=== PATIENT | female | born 1960 | race Caucasian/White ===

== ENCOUNTER 2023-05-20 12:51 | Outpatient (REF) | payer MEDICARE, MEDICAID, SELFPAY ==
[2023-05-20 13:57] LABS: Bilirubin Urine NEGATIVE (NEGATIVE); Blood Urine SMALL (NEGATIVE); Clarity Urine CLOUDY (CLEAR); Color Urine YELLOW (YELLOW); Glucose Urine UA NEGATIVE (NEGATIVE); Ketones Urine NEGATIVE (NEGATIVE); Leukocyte Esterase Urine SMALL (NEGATIVE); Nitrite Urine NEGATIVE (NEGATIVE); Protein Urine >=300 mg/dL (NEG/TRACE); Specific Gravity Urine 1.025 (1.005-1.025); pH Urine 7.5 (5.0-9.0)
[2023-05-20 13:58] LABS: Urine Microscopic Indicated YES
[2023-05-20 14:18] LABS: Amorphous Sediment Urine MODERATE; Bacteria Urine MODERATE #/HPF (NONE SEEN); Cast Seen? NONE SEEN #/LPF (NONE SEEN); Crystals Seen? Seen #/HPF (None Seen); Mucus Urine NONE SEEN (NONE SEEN); Squamous Epithelial Cell Urine RARE #/LPF (NONE/RARE); WBC Urine 20-50 #/HPF (NONE SEEN)
== END 2023-05-20 12:52 | disposition home or self-care (01) ==
LOC: LAB 12:51
PROVIDERS: PCP Family Medicine; Visit Provider Family Medicine
DX: N39.0 Urinary tract infection, site not specified (principal)
CPT/HCPCS: 81001

== ENCOUNTER 2023-06-03 04:41 | Emergency (ER) | payer MEDICARE, MEDICAID, SELFPAY ==
[2023-06-03 04:42] VITALS: BP 139/111; PULSE 114; RESP 20; TEMP 37.2; O2SAT 95; BMI 51.5
--- NOTE | 2023-06-03 05:12 | PC.NURSE ---
patient has had no urine output in her wilson for 12 hours. small amount of urine that was in wilson was dark frieda with a creamy white mucus. wilson was removed and a new wilson placed per dr. phan. UA was obtained from wilson insertion. yellow, cloudy.
--- NOTE | 2023-06-03 05:29 | ED_ITS ---
HPI - Female Genitourinary General Chief complaint: Urogenital-Female Stated complaint: CATH PAIN Time Seen by Provider: 06/03/23 04:42 Source: patient Mode of arrival: ambulance History of Present Illness HPI Narrative: patient has indwelling wilson catheter that has not been removed for a long time. She stopped having urine output around 4pm yesterday. Then she developed bladder pain so she called 911 to bring her to the ED for evaluation and treatment. Related Data Previous Rx's Medication Instructions Recorded cephalexin 500 mg capsule 500 mg PO BID 7 days #14 caps 06/03/23 Allergies Allergy/AdvReac Type Severity Reaction Status Date / Time No Known Drug Allergies Allergy Verified 06/03/23 04:41 PFSH PFSH Social History Smoking status: Never smoker Exam Narrative Exam Narrative: Nurses notes and vital signs reviewed and patient is not hypoxic. afebrile General: Well-appearing and in no apparent distress. Skin: Warm, dry, no pallor noted. No rash. Head: Normocephalic, atraumatic. Eye: Pupils are equal, round and EOMI. No scleral icterus. Cardiovascular: Regular Rate and Rhythm without murmur, gallop or rub. Respiratory: No accessory muscle use or respiratory distress. Lungs are clear to auscultation, no wheezing, rales or rhonchi Back: No CVA tenderness GI: Abdomen is soft, non-distended. Normal bowel sounds. Suprapubic tenderness to palpation. No rebound, guarding, or rigidity noted. Neurological: A&O x4. No cranial nerve dysfunction observed. No truncal ataxia. Moves all extremities. Sensation intact. Psychiatric: Cooperative and interactive. Normal mood and affect. Constitutional Vital Signs, click to edit/add: Last Vital Signs Temp 98.9 F 06/03/23 04:42 Pulse 114 H 06/03/23 04:42 Resp 20 06/03/23 04:42 BP 139/111 H 06/03/23 04:42 Pulse Ox 95 06/03/23 04:42 O2 Del Method Room Air 06/03/23 04:42 Course Vital Signs Vital signs: Vital Signs Temperature 98.9 F 06/03/23 04:42 Pulse Rate 114 H 06/03/23 04:42 Respiratory Rate 20 06/03/23 04:42 Blood Pressure 139/111 H 06/03/23 04:42 Pulse Oximetry 95 06/03/23 04:42 Oxygen Delivery Method Room Air 06/03/23 04:42 Temperature 98.9 F 06/03/23 04:42 Pulse Rate 114 H 06/03/23 04:42 Respiratory Rate 20 06/03/23 04:42 Blood Pressure 139/111 H 06/03/23 04:42 Pulse Oximetry 95 06/03/23 04:42 Oxygen Delivery Method Room Air 06/03/23 04:42 MDM - Female Genitourinary MDM Narrative Medical decision making narrative: Bladder scanner revealed more than 450mL retained urine in the bladder. ED nurse replaced the patient's wilson catheter. The patient felt much better and asked to be discharged home. Urine obtained from the new bag and sent for testing. Patient prescribed keflex for her UTI. Urine culture pending Lab Data Attestation: I reviewed the patient's lab results. Labs: Lab Results 06/03/23 Range/Units 04:58 Urine Color Lt. yellow (YELLOW) Urine Clarity Clear (CLEAR) Urine pH 6.0 (5.0-9.0) Ur Specific [place] 1.020 (1.005-1.025) Urine Protein Negative (NEG/TRACE) mg/dL Urine Glucose (UA) Negative (NEGATIVE) mg/dL Urine Ketones Negative (NEGATIVE) mg/dL Urine Occult Blood Trace-i (NEGATIVE) Urine Nitrite Negative (NEGATIVE) Urine Bilirubin Negative (NEGATIVE) Urine Urobilinogen 0.2 (0.2-1.0) EU/dL Ur Leukocyte Esterase Large A (NEGATIVE) Urine RBC 0-2 (0-2) #/HPF Urine WBC 20-50 A (NONE SEEN) #/HPF Ur Squamous Epith Cells Rare (NONE/RARE) #/LPF Urine Crystals None seen (None Seen) #/HPF Urine Bacteria Large A (NONE SEEN) #/HPF Urine Casts Seen A (NONE SEEN) #/LPF Hyaline Casts Few Urine Mucus None seen (NONE SEEN) Ur Culture Indicated? Yes Discharge Plan Discharge Chief Complaint: Urogenital-Female Clinical Impression: Acute urinary retention, Cystitis, Urinary tract infection Patient Disposition: Home, Self-Care Time of Disposition Decision: 05:34 Prescriptions / Home Meds: New cephalexin 500 mg capsule 500 mg PO BID 7 Days Qty: 14 0RF Instructions: Acute Urinary Retention in Women (ED), Urinary Tract Infection in Older Adults (ED) Stand Alone Forms: Portal Instructions Referrals: Raghav Thorne MD [Primary Care Provider] - 1 week Discharge Date/Time: 06/03/23 05:43
[2023-06-03 06:35] LABS: Bilirubin Urine NEGATIVE (NEGATIVE); Blood Urine TRACE-I (NEGATIVE); Clarity Urine CLEAR (CLEAR); Color Urine LT. YELLOW (YELLOW); Glucose Urine UA NEGATIVE (NEGATIVE); Ketones Urine NEGATIVE (NEGATIVE); Leukocyte Esterase Urine LARGE (NEGATIVE); Nitrite Urine NEGATIVE (NEGATIVE); Protein Urine NEGATIVE (NEG/TRACE); Urine Microscopic Indicated YES; Urobilinogen Urine 0.2 EU/dL (0.2-1.0)
[2023-06-03 06:44] LABS: Bacteria Urine LARGE #/HPF (NONE SEEN); Cast Seen? SEEN #/LPF (NONE SEEN); Crystals Seen? None Seen #/HPF (None Seen); Hyaline Casts Urine FEW; Mucus Urine NONE SEEN (NONE SEEN); RBC Urine 0-2 #/HPF (0-2); Squamous Epithelial Cell Urine RARE #/LPF (NONE/RARE); WBC Urine 20-50 #/HPF (NONE SEEN)
[2023-06-03 06:45] LABS: Urine Culture Indicated YES
== END 2023-06-03 05:43 | disposition home or self-care (01) ==
PROVIDERS: Emergency Provider Emergency Medicine; PCP Family Medicine
DX: N30.90 Cystitis, unspecified without hematuria (principal); R33.9 Retention of urine, unspecified; Z96.0 Presence of urogenital implants
CPT/HCPCS: 51798; 81001; 87086; 87150; 87186; 99283

== ENCOUNTER 2023-06-10 09:30 | Inpatient (IN) | payer MEDICARE, MEDICAID, SELFPAY ==
[2023-06-10] VITALS (30 sets, daily range): BP systolic 130–151; BP diastolic 68–96; PULSE 83–120; RESP 14–41; TEMP 36.8–37.3; O2SAT 88–96; BMI 56.6; BMI 63.6
--- NOTE | 2023-06-10 09:48 | XR_ITS ---
The [address] [address] Patient Name: BRODERICK SIEGEL MRN: [id number] date: 1960 Sex: F Assigned Patient Location: ER Current Patient Location: ER Accession/Order Number: [id number] Exam Date: 06/10/2023 10:05 Report Date: 06/10/2023 10:53 At the request of: IVANA ESPANA Procedure: XR chest 1V EXAMINATION: XR chest 1V HISTORY: cp COMPARISON: No relevant comparison available. FINDINGS: LUNGS: No significant pulmonary parenchymal abnormalities. VASCULATURE: No increased pulmonary vasculature. PLEURA: No pneumothorax, effusion, or pleural thickening. CARDIAC: No cardiomegaly or cardiac silhouette abnormality. MEDIASTINUM: No visible mass or adenopathy. BONES: No fracture or visible bone lesion. OTHER: Negative. XR/XR chest 1V IMPRESSION: 1. No acute cardiopulmonary process. Electronically authenticated by: BRET GONZALEZ Date: 06/10/2023 10:53
--- NOTE | 2023-06-10 09:48 | ECG_ITS ---
The [facility] Test Date: 2023-06-10 Pat Name: BRODERICK SIEGEL Department: Room: - Gender: Female Hide Curer: : 1960 Requested By: CELESTINE JEFFRIES Order Number: [id number] Reading MD: ZAIRE GOSS Measurements Intervals [place] Rate: 113 P: 44 ID: [id number] QRS: 0 QRSD: 90 T: 44 QT: 298 QTc: 365 Interpretive Statements 1120 Sinus tachycardia 3113 Cannot rule out anterior myocardial infarction, probably old 9150 abnormal ECG No previous ECG available for comparison Electronically Signed On 06-11-2023 7:07:51 EDT by ZAIRE GOSS
--- NOTE | 2023-06-10 09:50 | ED_ITS ---
HPI - General Adult General Chief complaint: Chest Pain Stated complaint: CHEST PAIN Time Seen by Provider: 06/10/23 09:48 Source: patient and other Source information: EMS Mode of arrival: ambulance Limitations: physical limitation History of Present Illness HPI narrative: Patient is a 63-year-old female who is presenting with chest pain for the last 24 hours. Patient stated she was having sharp stabbing left-sided chest pain yesterday with no significant radiation. Patient is a mild shortness of breath. Patient has limited use of left arm and leg secondary to previous traumatic e vent/surgery. 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 Patient also has a chronic swelling for a catheter. She has no abdominal pain, nausea or vomiting today. Patient uses a wheelchair at home. Patient to be placed in a long term in the next month. Patient has no falls. No recent traveling. Patient does move around quite a bit at home with her wheelchair. No other acute complaints at this time. Patient is morbidly obese. Patient arrived by EMS. Patient was given 4 baby aspirin, nitroglycerin prior to arrival, nitro did drop minimally blood pressures. . All systems are negative except as noted/marked. All systems reviewed and otherwise negative. . Nurses note and vital signs reviewed and patient is not hypoxic. General: The patient appears well and in no apparent distress. Patient is resting comfortably on cart. Patient is not toxic, lethargic, or listless. morbidly Obese. Skin: Warm, dry, no pallor noted. There is no rash noted. No petechiae, purpura. Head: Normocephalic, atraumatic Eye: Normal conjunctiva, no drainage, EOMI. PERRL Ears, Nose, Mouth, and Throat: oral mucosa is moist. Nares patent. Mouth without vesicles. Cardiovascular: Regular Rate and Rhythm, no murmur, gallop, rub; Patient has no reproducible tenderness to palpation to the anterior, lateral, posterior chest wall bilateral. Respiratory: Patient is in no distress, no accessory muscle use, lungs are clear to auscultation, no wheezing, rales or rhonchi Back: non-tender, no CVA tenderness bilaterally to percussion. No CT LS midline pain GI: soft, morbidly obese, no tenderness to palpation, no masses appreciated. No rebound, guarding, or rigidity noted. No flank pain bilateral, No distention. Patient has indwelling Harmon catheter. Musculoskeletal: Patient has full range of motion of all of the extremities That is normal for patient. Patient has chronic loss of function to left arm left leg, no acute changes on today's motor sensory function that is not her normal baseline., no motor, sensory, or focal neurological deficits Neurological: A&O x3, normal speech Psychiatric: Cooperative Related Data Home Medications Medication Instructions Recorded Confirmed acetaminophen 325 mg tablet (Aphen) 1,000 mg PO TID 06/10/23 06/10/23 alendronate 70 mg tablet 70 mg PO .Tuesday06/10/23 06/10/23 allopurinol 300 mg tablet 300 mg PO DAILY 06/10/23 06/10/23 amlodipine 5 mg tablet 5 mg PO DAILY 06/10/23 06/10/23 atorvastatin 40 mg tablet 40 mg PO DAILY 06/10/23 06/10/23 bupropion HCl 300 mg 24 hr tablet, 300 mg PO DAILY 06/10/23 06/10/23 extended release cholecalciferol (vitamin D3) 50 2,000 unit PO DAILY 06/10/23 06/10/23 mcg (2,000 unit) capsule citalopram 20 mg tablet 20 mg PO DAILY 06/10/23 06/10/23 docusate sodium 100 mg capsule 100 mg PO TID 06/10/23 06/10/23 (Colace) furosemide 40 mg tablet 40 mg PO DAILY 06/10/23 06/10/23 gabapentin 400 mg capsule 800 mg PO TID 06/10/23 06/10/23 hydrocodone 10 mg-acetaminophen 1 tab PO BEDTIME 06/10/23 06/10/23 325 mg tablet hyoscyamine sulfate 0.125 mg 0.125 mg PO Q8H 06/10/23 06/10/23 disintegrating tablet insulin glargine 100 unit/mL 19 unit subcut DAILY 06/10/23 06/10/23 subcutaneous solution (Lantus U-100 Insulin) insulin lispro 100 unit/mL 1 sliding scale dose subcut ACHS 06/10/23 06/10/23 subcutaneous pen letrozole 2.5 mg tablet 2.5 mg PO Q24H 06/10/23 06/10/23 levofloxacin 750 mg tablet 750 mg PO Q24H 06/10/23 06/10/23 levothyroxine 200 mcg tablet 200 mcg PO DAILY 06/10/23 06/10/23 liothyronine 5 mcg tablet 5 mcg PO DAILY 06/10/23 06/10/23 meclizine 25 mg tablet 25 mg PO BID 06/10/23 06/10/23 nitrofurantoin 100 mg PO Q12H 06/10/23 06/10/23 monohydrate/macrocrystals 100 mg capsule pantoprazole 40 mg tablet,delayed 40 mg PO DAILY 06/10/23 06/10/23 release pioglitazone 30 mg tablet 30 mg PO DAILY 06/10/23 06/10/23 potassium chloride 20 mEq 20 meq PO DAILY 06/10/23 06/10/23 tablet,extended release primidone 50 mg tablet 50 mg PO Q8H 06/10/23 06/10/23 semaglutide 1 mg/dose (2 mg/1.5 0.5 mg subcut QWEEK 06/10/23 06/10/23 mL) subcutaneous pen injector (FanKave) senna 187 mg tablet 50 mg PO DAILY 06/10/23 06/10/23 tizanidine 4 mg tablet 2 mg PO Q8H 06/10/23 06/10/23 trazodone 150 mg tablet 100 mg PO BEDTIME 06/10/23 06/10/23 Allergies Allergy/AdvReac Type Severity Reaction Status Date / Time No Known Drug Allergies Allergy Verified 06/10/23 09:33 PFSH PFSH Social History Smoking status: Never smoker Exam Constitutional Vital Signs, click to edit/add: Last Vital Signs Temp 98.4 F 06/10/23 14:39 Pulse 84 06/10/23 15:45 Resp 16 06/10/23 14:39 BP 151/96 H 06/10/23 14:39 Pulse Ox 92 L 06/10/23 14:39 O2 Del Method Nasal Cannula 06/10/23 14:39 O2 Flow Rate 3 06/10/23 14:39 Course Vital Signs Vital signs: Vital Signs Temperature 99.2 F 06/10/23 09:33 Pulse Rate 120 H 06/10/23 09:33 Respiratory Rate 18 06/10/23 09:33 Blood Pressure 146/68 H 06/10/23 09:33 Pulse Oximetry 88 L 06/10/23 09:33 Oxygen Delivery Method Room Air 06/10/23 09:33 Temperature 98.4 F 06/10/23 14:39 Pulse Rate 84 06/10/23 15:45 Respiratory Rate 16 06/10/23 14:39 Blood Pressure 151/96 H 06/10/23 14:39 Pulse Oximetry 92 L 06/10/23 14:39 Oxygen Delivery Method Nasal Cannula 06/10/23 14:39 Oxygen Delivery Flow Rate 3 06/10/23 14:39 Medical Decision Making MDM Narrative Medical decision making narrative: Patient had 2 cardiac enzymes are negative. EKG showed no acute findings. Chest x-ray shows no acute changes. EXAMINATION: XR chest 1V HISTORY: cp COMPARISON: No relevant comparison available. FINDINGS: LUNGS: No significant pulmonary parenchymal abnormalities. VASCULATURE: No increased pulmonary vasculature. PLEURA: No pneumothorax, effusion, or pleural thickening. CARDIAC: No cardiomegaly or cardiac silhouette abnormality. MEDIASTINUM: No visible mass or adenopathy. BONES: No fracture or visible bone lesion. OTHER: Negative. IMPRESSION: 1. No acute cardiopulmonary process. Electronically authenticated by: BERT GONZALEZ Date: 06/10/2023 10:53 Patient currently has not had any chest pain and last hour. Patient was a home. Patient will be placed in a long term. Patient was given aspirin and nitroglycerin by EMS, please see the report. Patient's disease intervention specialist is Dr. Yeung, she has not seen him in several years. Patient has no cardiac history, no stents. Patient does not recall the last time she had a stress test or echocardiogram. Patient's PCP is Dr. Thorne. Patient be admitted to rule out acute cardiac syndrome. Lab Data Lab results reviewed: Yes I reviewed the patient's lab results Labs: Lab Results 06/10/23 06/10/23 Range/Units 10:45 11:34 WBC 7.6 (4.0-11.0) 10^3/uL RBC 5.13 (4.20-5.40) 10^6/uL Hgb 12.5 (12.0-16.0) g/dL Hct 39.5 (36.0-48.0) % MCV 77.0 L (81.0-99.0) fL MCH 24.4 L (26.7-34.0) pg MCHC 31.6 (29.9-35.2) g/dL RDW 16.6 H (11.0-15.0) % Plt Count 205 (150-450) 10^3/uL MPV 10.3 (9.5-13.5) fL Neut % (Auto) 75.8 H (43.0-75.0) % Lymph % (Auto) 7.3 L (20.5-60.0) % [place] % (Auto) 10.2 (1.7-12.0) % Eos % (Auto) 5.8 (0.9-7.0) % Baso % (Auto) 0.4 (0.2-2.0) % Neut # (Auto) 5.8 (1.4-6.5) 10^3/uL Lymph # (Auto) 0.6 L (1.2-3.8) 10^3/uL [place] # (Auto) 0.8 (0.3-0.8) 10^3/uL Eos # (Auto) 0.4 (0.0-0.7) 10^3/uL Baso # (Auto) 0.0 (0.0-0.1) 10^3/uL Abs Immat Gran (auto) 0.04 H (0.00-0.03) 10^3/uL Imm/Tot Granulo (auto) 0.5 (0.0-0.5) % Sodium 131 L (136-145) mmol/L Potassium 4.1 (3.5-5.1) mmol/L Chloride 97 L (98-107) mmol/L Carbon Dioxide 26.4 (21.0-32.0) mmol/L Anion Gap 11.7 BUN 21.0 H (7.0-18.0) mg/dL Creatinine 1.01 (0.55-1.02) mg/dL Est GFR ( Amer) >60 (>=60) Est GFR (Non-Af Amer) 55 L (>=60) BUN/Creatinine Ratio 20.8 Glucose 230 H (74-106) mg/dL Calcium 8.8 (8.5-10.1) mg/dL Total Bilirubin 0.3 (0.2-1.0) mg/dL AST 24 (15-37) U/L ALT 22 (14-59) U/L Alkaline Phosphatase 72 (46-116) U/L Troponin I High Sens 7.4 7.4 (4.0-51.3) pg/mL NT-Pro-B Natriuret Pep 57.0 (<=900.0) pg/mL Total Protein 7.0 (6.4-8.2) g/dL Albumin 3.1 L (3.4-5.0) g/dL Globulin 3.9 g/dL Albumin/Globulin Ratio 0.8 ECG Data Attestation: I personally reviewed and interpreted this ECG as follows: (EKG interpretation. Sinus tachycardia at 113. Normal axis deviation. No acute ST elevation, no acute ectopy. QTC of 365. artifact noted) Discharge Plan Discharge Chief Complaint: Chest Pain Clinical Impression: Chest pain Patient Disposition: Admitted as Observation Time of Disposition Decision: 13:33 Condition: Fair Discharge Date/Time: 06/10/23 14:27
[2023-06-10 11:05] LABS: Basophils Percent Auto 0.4 % (0.2-2.0); Eosinophils Absolute Auto 0.4 10^3/uL (0.0-0.7); Eosinophils Percent Auto 5.8 % (0.9-7.0); Hematocrit 39.5 % (36.0-48.0); Hemoglobin 12.5 g/dL (12.0-16.0); Immature Granulocytes Abs Auto 0.04 10^3/uL (0.00-0.03); Immature Granulocytes Pct Auto 0.5 % (0.0-0.5); Lymphocytes Absolute Auto 0.6 10^3/uL (1.2-3.8); Lymphocytes Percent Auto 7.3 % (20.5-60.0); Mean Corpuscular HGB Conc 31.6 g/dL (29.9-35.2); Mean Corpuscular Hemoglobin 24.4 pg (26.7-34.0); Mean Platelet Volume 10.3 fL (9.5-13.5); Monocytes Absolute Auto 0.8 10^3/uL (0.3-0.8); Monocytes Percent Auto 10.2 % (1.7-12.0); Neutrophils Absolute Auto 5.8 10^3/uL (1.4-6.5); Neutrophils Percent Auto 75.8 % (43.0-75.0); Platelet Count 205 10^3/uL (150-450); Red Blood Count 5.13 10^6/uL (4.20-5.40); Red Cell Distribution Width 16.6 % (11.0-15.0); White Blood Count 7.6 10^3/uL (4.0-11.0)
[2023-06-10 11:17] LABS: Alanine Aminotransferase 22 U/L (14-59); Albumin Globulin Ratio 0.8; Albumin Level 3.1 g/dL (3.4-5.0); Alkaline Phosphatase 72 U/L (46-116); Anion Gap 11.7; Aspartate Amino Transferase 24 U/L (15-37); BUN Creatinine Ratio 20.8; Bilirubin Total 0.3 mg/dL (0.2-1.0); Calcium 8.8 mg/dL (8.5-10.1); Carbon Dioxide 26.4 mmol/L (21.0-32.0); Chloride 97 mmol/L (98-107); Estimated GFR (African America >60 (>=60); Estimated GFR (Non-African Ame 55 (>=60); Globulin 3.9 g/dL; Glucose 230 mg/dL (74-106); Potassium 4.1 mmol/L (3.5-5.1); Sodium 131 mmol/L (136-145); Troponin I High Sensitivity 7.4 pg/mL (4.0-51.3)
[2023-06-10 11:58] LABS: Troponin I High Sensitivity 7.4 pg/mL (4.0-51.3)
--- NOTE | 2023-06-10 14:43 | CA_ITS ---
Patient: BRODERICK SIEGEL Exam Date: 06/10/2023 : 1960 Gender:F Ordering : SAMUEL SOUTH Admission #: [id number] Family : DR Raghav Thorne . Order #: [id number] CLICK HERE TO VIEW EXAM ECHOCARDIOGRAM REPORT PROCEDURE: CA ECHO DOPPLER COMPLETE INDICATIONS: Chest pain, h/o MS COMPARISON: None. DESCRIPTION: COMPLETE ECHOCARDIOGRAM Real-time transthoracic echocardiography with 2D, M-mode, spectral and color flow Doppler performed. QUALITY: Technically difficult due to patients condition. 64 330# LEFT VENTRICLE: Normal chamber size. Mild concentric left ventricular hypertrophy. Systolic function is normal. LV EF: Normal left ventricular ejection fraction, (55%). DIASTOLIC: Unable to assess diastolic function. ATRIAL SEPTUM: LEFT ATRIUM: Normal chamber size. RIGHT ATRIUM: Normal chamber size. RIGHT VENTRICLE: Normal chamber size. TRICUSPID VALVE: Normal mobility and thickness. No stenosis with mild regurgitation. No evidence of pulmonary hypertension. RVSP 28 mmHg MITRAL VALVE: Normal mobility and thickness. No evidence of mitral valve stenosis. There is no mitral annular calcification. No mitral regurgitation. AORTIC VALVE: Normal trileaflet appearance. No visible sclerosis. Normal leaflet mobility. No evidence of aortic valve stenosis. Trivial aortic regurgitation. AORTIC ROOT: Normal diameter and appearance. PULMONIC VALVE: Normal thickness and mobility. No stenosis. No regurgitation. PERICARDIUM: No evidence of pericardial effusion. IVC: Not well visualized. PLEURA: CONCLUSION: 1. Normal ventricular systolic function. LVEF is 55%. 2. No significant valvular dysfunction. 3. Normal right-sided pressures. 4. No pericardial effusion. Adult Echocardiography Procedure Report Left Ventricle LVEDD (3.7 - 5.6 cm): 4.42 cm LVESD (2.2 - 4.0 cm): 2.87 cm LVIVS thickness (0.6 - 1.2 cm): 1.33 cm LVPW thickness (0.5 - 1.0 cm): 1.23 cm e': 0.05 m/s E - e': 6.57 LVOT Diameter 2.25 cm Left Atrium Left Atrium Systolic Dimension: 3.80 cm Mitral Valve MV E to A Ratio: 1.55 Mitral Valve A-Wave Peak Velocity: 0.23 m/s Mitral Valve E-Wave Peak Velocity: 0.35 m/s Right Ventricle Aorta AO Root Diam: 3.21 cm Ascending Ao Diam: 2.65 cm Aortic Valve Peak Velocity(Antegrade Flow): 0.98 m/s Peak Gradient(Antegrade Flow): 3.85 mm[Hg] Tricuspid Valve Peak Velocity (Regurgitant Flow): 2.52 m/s Pulmonic Valve Mean Gradient: 1.44 mm[Hg], 1.36 mm[Hg], 1.53 mm[Hg] Mean Velocity: 0.57 m/s, 0.55 m/s, 0.56 m/s Peak Velocity: 0.84 m/s Peak Gradient: 2.61 mm[Hg], 2.61 mm[Hg], 3.26 mm[Hg] Right Atrium Dictated by: René Will M.D. on 06/10/2023 at 17:49 Approved by: René Will M.D. on 06/10/2023 at 17:51
--- NOTE | 2023-06-10 15:34 | CT_ITS ---
The [address] [address] Patient Name: BRODERICK SIEGEL MRN: [id number] date: 1960 Sex: F Assigned Patient Location: Current Patient Location: Accession/Order Number: [id number] Exam Date: 06/10/2023 23:59 Report Date: 06/11/2023 05:55 At the request of: SAMUEL SOUTH Procedure: CT angio chest EXAM: CT angio chest HISTORY: Suspect PE, chest pain. COMPARISON: Chest radiograph, yesterday at 10:02 AM. TECHNIQUE: CTA chest with IV contrast. FINDINGS: The study is nondiagnostic for evaluation of pulmonary embolism. This is due to inadequate contrast opacification of the pulmonary arteries. Ordering physician requested exam be read as is. There is retraction of the skin with subcutaneous scarring and fibrosis in the upper outer quadrant of the right breast. There is no axillary lymphadenopathy. Mildly enlarged mediastinal lymph nodes are present in the left hilum measuring 12 x 14 mm. AP window lymph node measures 7 x 10 mm. Heart is enlarged. Aorta is normal caliber. Lung volumes are low in the setting of obesity. Diffuse septal thickening is present with lower lobe predominance and patchy groundglass infiltrates in the lingula and left lower lobe. No effusion. Central airways are patent. No acute findings in the upper abdomen to extent of limited visualization. Liver is fatty infiltrated. CT/CT angio chest IMPRESSION: 1. Study is nondiagnostic for evaluation of thromboembolism. 2. Septal thickening compatible with pulmonary edema. Additional groundglass infiltrates in the left lung may reflect pneumonitis as well. No evidence of effusion or mucous plug. 3. Small lymph nodes in the mediastinum are likely reactive. 4. Fatty liver. 5. Scarring in the upper outer quadrant of the right breast presumably related to previous surgery or neoplasm. This should be correlated clinically as CT is not a sensitive or specific modality for evaluation of breast lesions. Electronically authenticated by: JR SQUIERS Date: 06/11/2023 05:55
[2023-06-10 15:51] LABS: Adenovirus NOT DETECTED (NOT DETECTE); Bordetella parapertussis NOT DETECTED (NOT DETECTE); Coronavirus 229E NOT DETECTED (NOT DETECTE); Coronavirus HKU1 NOT DETECTED (NOT DETECTE); Coronavirus NL63 NOT DETECTED (NOT DETECTE); Coronavirus OC43 NOT DETECTED (NOT DETECTE); Human Metapneumovirus NOT DETECTED (NOT DETECTE); Human Rhinovirus/Enterovirus NOT DETECTED (NOT DETECTE); Influenza A NOT DETECTED (NOT DETECTE); Influenza B NOT DETECTED (NOT DETECTE); Mycoplasma pneumoniae NOT DETECTED (NOT DETECTE); Parainfluenza Virus 1 NOT DETECTED (NOT DETECTE); Parainfluenza Virus 2 NOT DETECTED (NOT DETECTE); Parainfluenza Virus 3 NOT DETECTED (NOT DETECTE); Parainfluenza Virus 4 NOT DETECTED (NOT DETECTE); Respiratory Syncytial Virus NOT DETECTED (NOT DETECTE); SARS-CoV-2 NOT DETECTED (NOT DETECTE)
--- NOTE | 2023-06-10 17:27 | P.HP_ITS ---
Patient seen and evaluated at 2000 hrs. on 06/10/2023 Charting reviewed, agree with input and diagnoses as provided by nurse practitioner. Only correction is patient did have reproducible left-sided chest wall tenderness. She does state this reproduces the pain that she presented to the emergency room with. Patient does have significant hypoxia and changes consistent with possible pneumonia. Agree with diagnosis and need for CTA. Those results are pending. H&P: HPI History of Present Illness Chief complaint: CHEST PAIN Narrative: Date/time of exam: 06/10/23 1500 This is a 63-year-old female patient with a complicated past medical history as outlined below including DM 2, CHF, remote HI, remote CVA, hypothyroidism, history of cervical meningioma s/p C3-C7 fusion with chronic residual pain and decreased ability to ambulate; who presented to the ED complaining of chest pain and difficulty breathing that began yesterday. The patient reports pleuritic type chest pain that was much worse with deep inspiration and associated cough, mildly productive of clear to yellow sputum, and dyspnea without hypoxia. She also reports subjective fevers and chills with 1 recorded temperature of 99 at home. Patient also noted left calf pain and discomfort onset yesterday as well. The patient admits to being quite sedentary for the last year since her cervical spine surgery and that it is very difficult for her to ambulate well. She reports a remote history of an HI in her 30s that was without cardiac intervention of stent or CABG. Work-up in the ED was relatively benign with an EKG showing sinus tach and old anterior HI damage. Chest x-ray revealed no acute disease and troponin x2 have been negative. She is admitted to observation to the hospitalist service under Dr. Wolfe for further chest pain evaluation. At the time of my exam the patient has O2 supplement on for comfort and denies that she uses O2 at home. She reports that her central chest discomfort persists with deep inspiration but she feels like her dyspnea is improved after oxygen was applied. Her chest discomfort is somewhat reproducible on exam. As we have high suspicion of PE we will obtain a CTA of the chest and give the patient sedation prior to the CTA as she reports significant claustrophobia. She did not have a respiratory swab performed in the ED and with her low-grade temperature and cough it is possible that she has influenza, RSV, or COVID. Again the chest x-ray was negative for infiltrate. We will initiate the patient on therapeutic Lovenox dosing pending CTA evaluation to ensure adequate coverage in case she does actually have a PE. Review of Systems ROS Status of ROS 10 or more systems reviewed and unremarkable except as noted in history and below [facility] Medical History (Updated 06/10/23 @ 17:54 by Gladys Hernandez NP) Breast cancer ?C50.919 - Malignant neoplasm of unspecified site of unspecified female breast (ICD-10) CHF (congestive heart failure) ?I50.9 - Heart failure, unspecified (ICD-10) Chronic GERD ?K21.9 - Gastro-esophageal reflux disease without esophagitis (ICD-10) Depression with anxiety ?F41.8 - Other specified anxiety disorders (ICD-10) DM2 (diabetes mellitus, type 2) ?E11.9 - Type 2 diabetes mellitus without complications (ICD-10) Essential tremor ?G25.0 - Essential tremor (ICD-10) Gout ?M10.9 - Gout, unspecified (ICD-10) HTN (hypertension) ?I10 - Essential (primary) hypertension (ICD-10) Hypothyroidism ?E03.9 - Hypothyroidism, unspecified (ICD-10) Muscle spasm of back ?M62.830 - Muscle spasm of back (ICD-10) Peripheral neuropathy ?G62.9 - Polyneuropathy, unspecified (ICD-10) Social History Smoking status: Never smoker Meds Home Medications and Allergies Home Medications Medication Instructions Recorded Confirmed Type acetaminophen 325 mg tablet (Aphen) 1,000 mg PO TID 06/10/23 06/10/23 History alendronate 70 mg tablet 70 mg PO .Tuesday06/10/23 06/10/23 History allopurinol 300 mg tablet 300 mg PO DAILY 06/10/23 06/10/23 History amlodipine 5 mg tablet 5 mg PO DAILY 06/10/23 06/10/23 History atorvastatin 40 mg tablet 40 mg PO DAILY 06/10/23 06/10/23 History bupropion HCl 300 mg 24 hr tablet, 300 mg PO DAILY 06/10/23 06/10/23 History extended release cholecalciferol (vitamin D3) 50 2,000 unit PO DAILY 06/10/23 06/10/23 History mcg (2,000 unit) capsule citalopram 20 mg tablet 20 mg PO DAILY 06/10/23 06/10/23 History docusate sodium 100 mg capsule 100 mg PO TID 06/10/23 06/10/23 History (Colace) furosemide 40 mg tablet 40 mg PO DAILY 06/10/23 06/10/23 History gabapentin 400 mg capsule 800 mg PO TID 06/10/23 06/10/23 History hydrocodone 10 mg-acetaminophen 1 tab PO BEDTIME 06/10/23 06/10/23 History 325 mg tablet hyoscyamine sulfate 0.125 mg 0.125 mg PO Q8H 06/10/23 06/10/23 History disintegrating tablet insulin glargine 100 unit/mL 19 unit subcut DAILY 06/10/23 06/10/23 History subcutaneous solution (Lantus U-100 Insulin) insulin lispro 100 unit/mL 1 sliding scale dose subcut ACHS 06/10/23 06/10/23 History subcutaneous pen letrozole 2.5 mg tablet 2.5 mg PO Q24H 06/10/23 06/10/23 History levofloxacin 750 mg tablet 750 mg PO Q24H 06/10/23 06/10/23 History levothyroxine 200 mcg tablet 200 mcg PO DAILY 06/10/23 06/10/23 History liothyronine 5 mcg tablet 5 mcg PO DAILY 06/10/23 06/10/23 History meclizine 25 mg tablet 25 mg PO BID 06/10/23 06/10/23 History nitrofurantoin 100 mg PO Q12H 06/10/23 06/10/23 History monohydrate/macrocrystals 100 mg capsule pantoprazole 40 mg tablet,delayed 40 mg PO DAILY 06/10/23 06/10/23 History release pioglitazone 30 mg tablet 30 mg PO DAILY 06/10/23 06/10/23 History potassium chloride 20 mEq 20 meq PO DAILY 06/10/23 06/10/23 History tablet,extended release primidone 50 mg tablet 50 mg PO Q8H 06/10/23 06/10/23 History semaglutide 1 mg/dose (2 mg/1.5 0.5 mg subcut QWEEK 06/10/23 06/10/23 History mL) subcutaneous pen injector (Ozempic) senna 187 mg tablet 50 mg PO DAILY 06/10/23 06/10/23 History tizanidine 4 mg tablet 2 mg PO Q8H 06/10/23 06/10/23 History trazodone 150 mg tablet 100 mg PO BEDTIME 06/10/23 06/10/23 History Allergies Allergy/AdvReac Type Severity Reaction Status Date / Time No Known Drug Allergies Allergy Verified 06/10/23 09:33 Exam Constitutional Vital Signs, click to edit/add: Last Vital Signs Temp 98.4 F 06/10/23 14:39 Pulse 84 06/10/23 17:27 Resp 16 06/10/23 14:39 BP 151/96 H 06/10/23 14:39 Pulse Ox 92 L 06/10/23 14:39 O2 Del Method Nasal Cannula 06/10/23 14:39 O2 Flow Rate 3 06/10/23 14:39 Common normals: no apparent distress, oriented x3, alert and well nourished General appearance: cooperative Orientation/consciousness: Yes awake HENMT Common normals: normocephalic, head/scalp atraumatic, hearing grossly normal bilaterally, external ears normal, external nose normal and moist oral mucous membranes Head and scalp: normocephalic and atraumatic Face and sinus: normal facial exam Nose: external nose normal External ear: external ears normal Eye Common normals: PERRL, EOMs intact bilaterally, conjunctivae normal and no scleral icterus General eye: normal appearance of both eyes Alignment: alignment normal Eyelid: eyelids normal Conjunctiva: conjunctiva(e) normal Pupil: PERRL Neck & C-Spine Common normals: full ROM, supple and no JVD Chest Common normals: inspection of chest normal Chest: symmetrical chest wall rise and tenderness sternum Respiratory Common normals: normal respiratory effort, no retractions, no use of accessory muscles and clear to auscultation bilaterally Effort & inspection: able to speak in complete sentences Auscultation: clear to auscultation bilaterally and diminished lung sounds (BLL) Cardio Common normals: no JVD, regular rhythm, S1 normal heart sound, S2 normal heart sound, no gallops, no clicks, no murmurs, no rub and peripheral pulses 2+ throughout Rate: tachycardic (borderline) Rhythm: regular rhythm Heart sounds: S1 normal, S2 normal and murmur (HSM 2/6) Peripheral pulses: pulses 2+ throughout GI Common normals: Normal to inspection, nondistended, normoactive bowel sounds present, soft to palpation, non-tender, no hepatosplenomegaly, no masses and no bruits Palpation: soft and no hepatosplenomegaly Bladder/kidney exam: bladder normal to palpation Back & Pelvis Common normals: thoracic and lumbar spine normal to inspection Extremity Common normals: normal capillary refill and no pedal edema General: normal exam except as noted and edema (lipoedema BLE); no clubbing and no cyanosis Left lower extremity: lower leg (Calf tenderness, no sign swelling) Neuro [place] Coma Scale: GCS not evaluated Common normals: oriented x3, CN's II-XII intact bilaterally, moves all extremities, no focal motor deficits and no sensory deficits noted Sensorium/orientation: awake and alert Speech: speech normal Motor exam: strength 5/5 throughout Psych Common normals: mental status grossly normal, thought process normal, affect normal and activity/motor behavior normal Thought process: normal thought process Results Labs Labs: Short CBC 06/10/23 Range/Units 10:45 WBC 7.6 (4.0-11.0) 10^3/uL Hgb 12.5 (12.0-16.0) g/dL Hct 39.5 (36.0-48.0) % Plt Count 205 (150-450) 10^3/uL BMP 06/10/23 10:45 Sodium 131 L Potassium 4.1 Chloride 97 L Carbon Dioxide 26.4 BUN 21.0 H Creatinine 1.01 Glucose 230 H Calcium 8.8 Liver Function 06/10/23 Range/Units 10:45 Total Bilirubin 0.3 (0.2-1.0) mg/dL AST 24 (15-37) U/L ALT 22 (14-59) U/L Alkaline Phosphatase 72 (46-116) U/L Albumin 3.1 L (3.4-5.0) g/dL Pulse Oximetry Attestation: I have reviewed the pertinent pulse oximetry results. Assessment and Plan Assessment and Plan (1) Atypical chest pain: Assessment and Plan: ACUTE * Adm observation * Atypical w/ associated dyspnea and tachycardia (no true hypoxia) * Strong suspicion of PE - obtain CTA chest now. IV Valium for severe claustrophobia prior to study. Start empiric therapeutic lovenox, d/c if CTA negative. * 2D Echo * Serial Enzymes * Repeat EKG in AM * Obtain respiratory panel swab to r/o viral infection in setting of reported low grade temp and cough. Consider initiating ABX pending clinical course (2) DM2 (diabetes mellitus, type 2): Assessment and Plan: CHRONIC * Continue home Ozempic, lantus, Lispro SS * ACHS glucometer checks * CC diet * check A1C in AM (3) Breast cancer: Assessment and Plan: CHRONIC * Continue home letrozole (4) Depression with anxiety: Assessment and Plan: CHRONIC * Continue home celexa, bupropion, and (5) Peripheral neuropathy: Assessment and Plan: CHRONIC * Continue home gabapentin (6) Hypothyroidism: Assessment and Plan: CHRONIC * Continue home levothyroxine & Liothyronine (7) Chronic GERD: Assessment and Plan: CHRONIC * Continue home PPI (8) Gout: Assessment and Plan: CHRONIC * Continue home allopurinol (9) Muscle spasm of back: Assessment and Plan: CHRONIC * Continue home tizanidine, gabapentin (10) HTN (hypertension): Assessment and Plan: CHRONIC * Continue home amlodipine (11) Essential tremor: Assessment and Plan: CHRONIC * Continue home primidone (12) CHF (congestive heart failure): Assessment and Plan: CHRONIC * Continue home Lasix
[2023-06-10 18:50] LABS: Troponin I High Sensitivity 6.7 pg/mL (4.0-51.3)
[2023-06-10 20:34] LABS: Glucometer 156 mg/dL (74-106)
[2023-06-10 21:00] LABS: Troponin I High Sensitivity 6.6 pg/mL (4.0-51.3)
[2023-06-10] MEDS: ENOXAPARIN SODIUM 100 MG/ML SYRINGE 150 MG SUBQ (21:17)
[2023-06-10] MEDS: DEXAMETHASONE SOD PHOS 10 MG/ML VIAL IV (21:18)
[2023-06-10] MEDS: KETOROLAC TROMETHAMINE 30 MG/ML VIAL IVP (21:18)
[2023-06-10] MEDS: PIPERACILLIN SODIUM/TAZOBACTAM 3.375 GM in 0.9 % SODIUM CHLORIDE 50 ML IV (21:19)
[2023-06-10] MEDS: INSULIN ASPART 300 UNIT/3 ML PEN SUBQ (21:19)
[2023-06-10] MEDS: ACETAMINOPHEN 500 MG TABLET 1000 MG PO (21:20)
[2023-06-10] MEDS: TRAZODONE HCL 150 MG TABLET PO (21:21)
[2023-06-10] MEDS: HYOSCYAMINE SULFATE 0.125 MG TAB.SUBL PO (21:22)
[2023-06-10] MEDS: MECLIZINE HCL 12.5 MG TABLET 25 MG PO (21:23)
[2023-06-10] MEDS: DOCUSATE SODIUM 100 MG CAPSULE PO (21:23)
[2023-06-10] MEDS: PRIMIDONE 50 MG TABLET PO (21:23)
[2023-06-10] MEDS: SENNOSIDES/DOCUSATE SODIUM 1 TAB TABLET PO (21:23)
[2023-06-10] MEDS: TIZANIDINE HCL 4 MG TABLET 2 MG PO (21:23)
[2023-06-10] MEDS: HYDROCODONE/ACET 10-325 MG TABLET 1 TAB PO (21:24)
[2023-06-10] MEDS: GABAPENTIN 400 MG CAPSULE 800 MG PO (21:24)
[2023-06-11] VITALS (17 sets, daily range): BP systolic 129–146; BP diastolic 67–76; PULSE 74–98; RESP 18; TEMP 36.6–36.8; O2SAT 90–96
[2023-06-11] MEDS: PIPERACILLIN SODIUM/TAZOBACTAM 3.375 GM in 0.9 % SODIUM CHLORIDE 50 ML IV ×3 (04:53→20:35)
[2023-06-11 05:27] LABS: Basophils Percent Auto 0.5 % (0.2-2.0); Eosinophils Absolute Auto 0.1 10^3/uL (0.0-0.7); Eosinophils Percent Auto 1.2 % (0.9-7.0); Hematocrit 40.3 % (36.0-48.0); Hemoglobin 12.4 g/dL (12.0-16.0); Immature Granulocytes Abs Auto 0.01 10^3/uL (0.00-0.03); Immature Granulocytes Pct Auto 0.2 % (0.0-0.5); Lymphocytes Absolute Auto 0.6 10^3/uL (1.2-3.8); Lymphocytes Percent Auto 15.2 % (20.5-60.0); Mean Corpuscular HGB Conc 30.8 g/dL (29.9-35.2); Mean Corpuscular Hemoglobin 23.9 pg (26.7-34.0); Mean Corpuscular Volume 77.6 fL (81.0-99.0); Mean Platelet Volume 10.5 fL (9.5-13.5); Monocytes Absolute Auto 0.2 10^3/uL (0.3-0.8); Monocytes Percent Auto 5.1 % (1.7-12.0); Neutrophils Absolute Auto 3.2 10^3/uL (1.4-6.5); Neutrophils Percent Auto 77.8 % (43.0-75.0); Platelet Count 223 10^3/uL (150-450); Red Blood Count 5.19 10^6/uL (4.20-5.40); Red Cell Distribution Width 16.4 % (11.0-15.0); White Blood Count 4.1 10^3/uL (4.0-11.0)
[2023-06-11 05:31] LABS: Estimated Average Glucose 223 mg/dL; Glycohemoglobin A1C 9.4 % (4.5-6.2)
[2023-06-11 05:47] LABS: Alanine Aminotransferase 23 U/L (14-59); Albumin Globulin Ratio 0.8; Albumin Level 3.1 g/dL (3.4-5.0); Alkaline Phosphatase 75 U/L (46-116); Aspartate Amino Transferase 20 U/L (15-37); BUN Creatinine Ratio 22.3; Bilirubin Total 0.3 mg/dL (0.2-1.0); Calcium 9.1 mg/dL (8.5-10.1); Carbon Dioxide 25.9 mmol/L (21.0-32.0); Chloride 97 mmol/L (98-107); Estimated GFR (African America >60 (>=60); Estimated GFR (Non-African Ame 60 (>=60); Globulin 3.9 g/dL; Glucose 226 mg/dL (74-106); Potassium 3.9 mmol/L (3.5-5.1); Sodium 132 mmol/L (136-145)
--- NOTE | 2023-06-11 06:00 | ECG_ITS ---
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
[2023-06-11] MEDS: LEVOTHYROXINE SODIUM 100 MCG TABLET 200 MCG PO (06:20)
[2023-06-11] MEDS: OMEPRAZOLE 40 MG CAPSULE.DR PO (06:20)
[2023-06-11 08:41] LABS: SARS-CoV-2 Ag NEGATIVE (NEGATIVE)
[2023-06-11] MEDS: INSULIN ASPART 300 UNIT/3 ML PEN SUBQ ×2 (09:32→21:24)
[2023-06-11] MEDS: LEVOFLOXACIN IN DEXTROSE 5 % 750 MG/150 ML IV.SOLN 100 MG IV (09:32)
[2023-06-11] MEDS: POTASSIUM CHLORIDE 10 MEQ ER TABLET 20 MEQ PO (10:31)
[2023-06-11] MEDS: TIZANIDINE HCL 4 MG TABLET 2 MG PO ×3 (10:31→21:19)
[2023-06-11] MEDS: ALLOPURINOL 300 MG TABLET PO (10:31)
[2023-06-11] MEDS: CITALOPRAM HYDROBROMIDE 20 MG TABLET PO (10:32)
[2023-06-11] MEDS: FUROSEMIDE 40 MG TABLET PO (10:32)
[2023-06-11] MEDS: BUPROPION HCL 150 MG XL TABLET 24H 300 MG PO (10:32)
[2023-06-11] MEDS: GABAPENTIN 400 MG CAPSULE 800 MG PO ×3 (10:32→21:20)
[2023-06-11] MEDS: LIOTHYRONINE SODIUM 5 MCG TABLET PO (10:32)
[2023-06-11] MEDS: ACETAMINOPHEN 500 MG TABLET 1000 MG PO ×2 (10:32→18:09)
[2023-06-11] MEDS: DOCUSATE SODIUM 100 MG CAPSULE PO ×3 (10:33→21:19)
[2023-06-11] MEDS: PRIMIDONE 50 MG TABLET PO ×3 (10:33→21:20)
[2023-06-11] MEDS: MECLIZINE HCL 12.5 MG TABLET 25 MG PO ×2 (10:33→21:19)
[2023-06-11] MEDS: AMLODIPINE BESYLATE 5 MG TABLET PO (10:34)
[2023-06-11] MEDS: PIOGLITAZONE 15 MG TABLET 30 MG PO (10:34)
[2023-06-11] MEDS: HYOSCYAMINE SULFATE 0.125 MG TAB.SUBL PO ×3 (10:41→21:20)
--- NOTE | 2023-06-11 11:47 | P.PN_ITS ---
Exam Constitutional Vital Signs, click to edit/add: Last Vital Signs Temp 98.0 F 06/11/23 04:25 Pulse 83 06/11/23 10:23 Resp 18 06/11/23 04:25 BP 146/76 H 06/11/23 04:25 Pulse Ox 90 L 06/11/23 04:25 O2 Del Method Nasal Cannula 06/11/23 04:25 O2 Flow Rate 2 06/11/23 04:25 Progress Note: Objective Labs Labs: Short CBC 06/11/23 Range/Units 04:34 WBC 4.1 (4.0-11.0) 10^3/uL Hgb 12.4 (12.0-16.0) g/dL Hct 40.3 (36.0-48.0) % Plt Count 223 (150-450) 10^3/uL BMP 06/11/23 04:34 Sodium 132 L Potassium 3.9 Chloride 97 L Carbon Dioxide 25.9 BUN 21.0 H Creatinine 0.94 Glucose 226 H Calcium 9.1 Liver Function 06/11/23 Range/Units 04:34 Total Bilirubin 0.3 (0.2-1.0) mg/dL AST 20 (15-37) U/L ALT 23 (14-59) U/L Alkaline Phosphatase 75 (46-116) U/L Albumin 3.1 L (3.4-5.0) g/dL Progress Note: A&P Assessment and Plan (1) Atypical chest pain: (2) DM2 (diabetes mellitus, type 2): (3) Breast cancer: (4) Depression with anxiety: (5) Peripheral neuropathy: (6) Hypothyroidism: (7) Chronic GERD: (8) Gout: (9) Muscle spasm of back: (10) HTN (hypertension): (11) Essential tremor: (12) CHF (congestive heart failure): Plan Sinus tachycardia, respiratory distress-atypical chest pain: Significant in pneumonia appearance on CT scan. Of strain on echocardiogram. Unable to complete CTA last night. Based on recommendations and the continued hypoxia we will try to get a CTA were completed tonight. -Add steroids, aerosols, continue IV antibiotics with adjusted dosing DM2 (diabetes mellitus, type 2): Insulin sliding scale, will adjust dosing today Abnormal UA-check on culture Depression with anxiety: Maintain home medications Peripheral neuropathy: Maintain home medications-patient doing well at home and is requesting to go back to his alf facility Hyponatremia-monitor daily, improved today Hypothyroidism: Maintain current medications Chronic GERD: Maintain current medications Gout: Maintain home medications Muscle spasm of back: Not doing well at home. Recommending to return back to alf facility that she was back in back in March HTN (hypertension): Continue his home medications. It was amlodipine secondary to potential edema Essential tremor: Continue home medications CHF (congestive heart failure): - Home meds-BNP is normal ?
[2023-06-11 13:55] LABS: Glucometer 139 mg/dL (74-106)
[2023-06-11] MEDS: METHYLPREDNISOLONE SOD SUCC PF 125 MG/2 ML VIAL IVP ×2 (15:35→21:20)
[2023-06-11] MEDS: IPRATROPIUM/ALBUTEROL SULFATE 3 ML AMPUL.NEB IH ×2 (17:44→22:28)
--- NOTE | 2023-06-11 17:52 | RESP.RT ---
titrated down to 1L
[2023-06-11] MEDS: INSULIN DETEMIR 300 UNIT/3 ML INSULN.PEN 19 UNIT SUBQ (18:10)
[2023-06-11] MEDS: HYDROCODONE/ACET 10-325 MG TABLET 1 TAB PO (21:19)
[2023-06-11] MEDS: SENNOSIDES/DOCUSATE SODIUM 1 TAB TABLET PO (21:20)
[2023-06-11] MEDS: TRAZODONE HCL 150 MG TABLET PO (21:21)
[2023-06-11] MEDS: ATORVASTATIN CALCIUM 40 MG TABLET PO (21:23)
[2023-06-12] VITALS (24 sets, daily range): BP systolic 132–161; BP diastolic 69–85; PULSE 76–106; RESP 17–18; TEMP 36.4–37; O2SAT 91–95
[2023-06-12] MEDS: METHYLPREDNISOLONE SOD SUCC PF 125 MG/2 ML VIAL IVP (02:55)
[2023-06-12] MEDS: PIPERACILLIN SODIUM/TAZOBACTAM 3.375 GM in 0.9 % SODIUM CHLORIDE 50 ML IV ×3 (03:00→20:33)
[2023-06-12] MEDS: IPRATROPIUM/ALBUTEROL SULFATE 3 ML AMPUL.NEB IH ×4 (04:56→22:22)
[2023-06-12] MEDS: OMEPRAZOLE 40 MG CAPSULE.DR PO (05:47)
[2023-06-12] MEDS: LEVOTHYROXINE SODIUM 100 MCG TABLET 200 MCG PO (05:47)
[2023-06-12 06:01] LABS: Basophils Percent Auto 0.2 % (0.2-2.0); Eosinophils Percent Auto 0.2 % (0.9-7.0); Hematocrit 37.7 % (36.0-48.0); Hemoglobin 11.5 g/dL (12.0-16.0); Immature Granulocytes Abs Auto 0.03 10^3/uL (0.00-0.03); Immature Granulocytes Pct Auto 0.7 % (0.0-0.5); Lymphocytes Absolute Auto 0.7 10^3/uL (1.2-3.8); Lymphocytes Percent Auto 14.6 % (20.5-60.0); Mean Corpuscular HGB Conc 30.5 g/dL (29.9-35.2); Mean Corpuscular Hemoglobin 23.7 pg (26.7-34.0); Mean Corpuscular Volume 77.7 fL (81.0-99.0); Mean Platelet Volume 10.5 fL (9.5-13.5); Monocytes Absolute Auto 0.1 10^3/uL (0.3-0.8); Monocytes Percent Auto 2.9 % (1.7-12.0); Neutrophils Absolute Auto 3.7 10^3/uL (1.4-6.5); Neutrophils Percent Auto 81.4 % (43.0-75.0); Platelet Count 236 10^3/uL (150-450); Red Blood Count 4.85 10^6/uL (4.20-5.40); Red Cell Distribution Width 16.1 % (11.0-15.0); White Blood Count 4.5 10^3/uL (4.0-11.0)
[2023-06-12 06:29] LABS: Alanine Aminotransferase 21 U/L (14-59); Albumin Globulin Ratio 0.8; Alkaline Phosphatase 71 U/L (46-116); Anion Gap 16.5; Aspartate Amino Transferase 15 U/L (15-37); BUN Creatinine Ratio 23.9; Bilirubin Total 0.2 mg/dL (0.2-1.0); Calcium 8.9 mg/dL (8.5-10.1); Carbon Dioxide 22.7 mmol/L (21.0-32.0); Chloride 98 mmol/L (98-107); Estimated GFR (African America >60 (>=60); Estimated GFR (Non-African Ame >60 (>=60); Globulin 3.8 g/dL; Glucose 307 mg/dL (74-106); Potassium 4.2 mmol/L (3.5-5.1); Sodium 133 mmol/L (136-145); Total Protein 6.8 g/dL (6.4-8.2)
[2023-06-12] MEDS: ALENDRONATE SODIUM 70 MG TABLET PO (08:01)
[2023-06-12] MEDS: INSULIN ASPART 300 UNIT/3 ML PEN SUBQ ×4 (10:02→21:22)
[2023-06-12] MEDS: GABAPENTIN 400 MG CAPSULE 800 MG PO ×3 (10:04→20:30)
[2023-06-12] MEDS: PIOGLITAZONE 15 MG TABLET 30 MG PO (10:04)
[2023-06-12] MEDS: ALLOPURINOL 300 MG TABLET PO (10:05)
[2023-06-12] MEDS: CITALOPRAM HYDROBROMIDE 20 MG TABLET PO (10:05)
[2023-06-12] MEDS: BUPROPION HCL 150 MG XL TABLET 24H 300 MG PO (10:05)
[2023-06-12] MEDS: PRIMIDONE 50 MG TABLET PO ×3 (10:05→20:30)
[2023-06-12] MEDS: POTASSIUM CHLORIDE 10 MEQ ER TABLET 20 MEQ PO (10:05)
[2023-06-12] MEDS: LIOTHYRONINE SODIUM 5 MCG TABLET PO (10:05)
[2023-06-12] MEDS: HYOSCYAMINE SULFATE 0.125 MG TAB.SUBL PO ×3 (10:05→20:30)
[2023-06-12] MEDS: FUROSEMIDE 40 MG TABLET PO (10:06)
[2023-06-12] MEDS: ACETAMINOPHEN 500 MG TABLET 1000 MG PO ×2 (10:06→16:15)
[2023-06-12] MEDS: TIZANIDINE HCL 4 MG TABLET 2 MG PO ×3 (10:06→20:30)
[2023-06-12] MEDS: MECLIZINE HCL 12.5 MG TABLET 25 MG PO ×2 (10:06→20:31)
[2023-06-12] MEDS: AMLODIPINE BESYLATE 5 MG TABLET PO (10:07)
[2023-06-12] MEDS: DOCUSATE SODIUM 100 MG CAPSULE PO ×3 (10:07→20:30)
[2023-06-12] MEDS: METHYLPREDNISOLONE SOD SUCC PF 125 MG/2 ML VIAL 60 MG IVP ×3 (10:07→21:46)
[2023-06-12] MEDS: LEVOFLOXACIN IN DEXTROSE 5 % 750 MG/150 ML IV.SOLN 100 MG IV (10:08)
[2023-06-12] MEDS: INSULIN DETEMIR 300 UNIT/3 ML INSULN.PEN 20 UNIT SUBQ ×2 (10:10→21:22)
--- NOTE | 2023-06-12 10:56 | P.PN_ITS ---
Progress Note: Subjective Subjective Interval history: This failure breathing is better. Her chest pain has resolved. Exam Constitutional Vital Signs, click to edit/add: Last Vital Signs Temp 97.6 F 06/12/23 04:19 Pulse 89 06/12/23 09:56 Resp 18 06/12/23 04:56 BP 132/70 06/12/23 04:19 Pulse Ox 93 L 06/12/23 10:09 O2 Del Method Nasal Cannula 06/12/23 10:09 O2 Flow Rate 1 06/12/23 10:09 Documenting provider has reviewed patient's vital signs: yes Common normals: no apparent distress Chest Common normals: inspection of chest normal; palpation of chest abnormal (Does have some reproducible chest pain to palpation.) Respiratory Common normals: normal respiratory effort and no retractions Auscultation: rhonchi Cardio Common normals: regular rate, regular rhythm and no murmurs GI Common normals: soft to palpation; tender Inspection: normal to inspection Palpation: tender (mild epigatric tenderness) Extremity Common normals: normal to inspection and full ROM General: no edema Progress Note: Objective Labs Labs: Short CBC 06/12/23 Range/Units 05:11 WBC 4.5 (4.0-11.0) 10^3/uL Hgb 11.5 L (12.0-16.0) g/dL Hct 37.7 (36.0-48.0) % Plt Count 236 (150-450) 10^3/uL BMP 06/12/23 05:11 Sodium 133 L Potassium 4.2 Chloride 98 Carbon Dioxide 22.7 BUN 21.0 H Creatinine 0.88 Glucose 307 H Calcium 8.9 Liver Function 06/12/23 Range/Units 05:11 Total Bilirubin 0.2 (0.2-1.0) mg/dL AST 15 (15-37) U/L ALT 21 (14-59) U/L Alkaline Phosphatase 71 (46-116) U/L Albumin 3.0 L (3.4-5.0) g/dL Progress Note: A&P Assessment and Plan (1) Atypical chest pain: (2) DM2 (diabetes mellitus, type 2): (3) Breast cancer: (4) Depression with anxiety: (5) Peripheral neuropathy: (6) Hypothyroidism: (7) Chronic GERD: (8) Gout: (9) Muscle spasm of back: (10) HTN (hypertension): (11) Essential tremor: (12) CHF (congestive heart failure): Plan Sinus tachycardia, respiratory distress with acute hypoxia-atypical chest pain: Significant in pneumonia appearance on CT scan. no strain on echocardiogram. Unable to complete CTA previous night. repeated last night nad still not confirmatory - having diff radiologist read. Maintain meds - reduce steroids. Supplemental PO2 better - down to 1 L - repeat cxr in am, DM2 (diabetes mellitus, type 2): Insulin sliding scale, will adjust long acting dosing today Abnormal UA-check on culture =- pending Depression with anxiety: Maintain home medications Peripheral neuropathy: Maintain home medications-patient doing well at home and is requesting to go back to his long term facility Hyponatremia-monitor daily, improved today Hypothyroidism: Maintain current medications Chronic GERD: Maintain current medications Gout: Maintain home medications Anemia-possible acute blood loss, on PPI, check stool for occult blood Muscle spasm of back: Not doing well at home. Recommending to return back to long term facility that she was back in back in March to [facility] tomorrow HTN (hypertension): Continue his home medications. Skip amlodipine - BP stable Essential tremor: Continue home medications CHF (congestive heart failure): - Home meds- repeat BNP is normal
--- NOTE | 2023-06-12 11:04 | CT_ITS ---
[address] [address] Patient Name: BRODERICK SIEGEL MRN: [id number] date: 1960 Sex: F Assigned Patient Location: Current Patient Location: Accession/Order Number: [id number] Exam Date: 06/12/2023 01:15 Report Date: 06/12/2023 02:07 At the request of: ZAIRE GOSS Procedure: CT angio chest EXAM: CT angio chest HISTORY: acute hypoxia = radiology recommended repeat COMPARISON: 06/11/2023 TECHNIQUE: CT angiography of the pulmonary arteries following the administration of intravenous contrast. Coronal and sagittal MIP (maximum intensity projection) images were performed. Dose reduction techniques were achieved by using automated exposure control and/or adjustment of mA and/or kV according to patient size and/or use of iterative reconstruction technique. FINDINGS: The study is technically limited for the diagnosis of pulmonary embolism within the interlobar, lobar, segmental and subsegmental pulmonary arteries due to suboptimal contrast bolus TUBES AND IMPLANTS: None. CHEST WALL AND LOWER NECK: Unremarkable. BONES: No suspicious lesions. UPPER ABDOMEN: Probable hepatic steatosis MEDIASTINUM AND VÍCTOR: Small hiatal hernia. Multiple mildly enlarged mediastinal lymph nodes AORTA: No aneurysm PULMONARY ARTERIES: No large saddle embolus HEART: Moderate cardiomegaly. No evidence of right heart strain CORONARY ARTERIES: No coronary artery calcifications. LUNG AND AIRWAYS: Patchy opacities are seen in both lungs PLEURA: Unremarkable. CT/CT angio chest IMPRESSION: 1. No large saddle embolus. Examination is limited for the diagnosis of pulmonary emphysema within the lobar, interlobar, segmental and subsegmental pulmonary arteries due to suboptimal contrast bolus. Moderate cardiomegaly without evidence of right heart strain. 2. Bilateral patchy opacities which may represent infectious or inflammatory etiology. 3. Small hiatal hernia. 4. Probable hepatic steatosis. Electronically authenticated by: ASHLEY HULL Date: 06/12/2023 02:07
[2023-06-12 13:00] LABS: Bilirubin Urine NEGATIVE (NEGATIVE); Blood Urine NEGATIVE (NEGATIVE); Clarity Urine CLEAR (CLEAR); Color Urine LT. YELLOW (YELLOW); Glucose Urine UA 500 mg/dL (NEGATIVE); Ketones Urine NEGATIVE (NEGATIVE); Leukocyte Esterase Urine NEGATIVE (NEGATIVE); Nitrite Urine NEGATIVE (NEGATIVE); Protein Urine TRACE mg/dL (NEG/TRACE); Specific Gravity Urine 1.025 (1.005-1.025); Urobilinogen Urine 0.2 EU/dL (0.2-1.0)
[2023-06-12 13:04] LABS: Bacteria Urine NONE SEEN #/HPF (NONE SEEN); Cast Seen? NONE SEEN #/LPF (NONE SEEN); Crystals Seen? None Seen #/HPF (None Seen); Mucus Urine NONE SEEN (NONE SEEN); RBC Urine 0-2 #/HPF (0-2); Squamous Epithelial Cell Urine NONE SEEN #/LPF (NONE/RARE); WBC Urine NONE SEEN #/HPF (NONE SEEN)
--- NOTE | 2023-06-12 14:49 | PC.NURSE ---
Nurse called to room, pt voiced she was having a new onset of chest pain rated 5/10. Pt voices it feels like pressure on her chest. Pts heart rate is NSR verified with ICU via her telemetry and apical pulse auscultation.pt voiced she has not had pain like this before. Updating MD at this time. See vital signs.
--- NOTE | 2023-06-12 14:58 | ECG_ITS ---
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
[2023-06-12 15:01] LABS: SARS-CoV-2 NAA NOT DETECTED (NOT DETECTE)
--- NOTE | 2023-06-12 15:05 | XR_ITS ---
[address] [address] Patient Name: BRODERICK SIEGEL MRN: [id number] date: 1960 Sex: F Assigned Patient Location: [place] Current Patient Location: Accession/Order Number: [id number] Exam Date: 06/12/2023 15:17 Report Date: 06/12/2023 15:55 At the request of: ZAIRE GOSS Procedure: XR chest 1V EXAM: XR chest 1V HISTORY: cp COMPARISON: 06/10/2023 TECHNIQUE: Chest X-ray AP, 1 view FINDINGS: Support devices: None. Lungs/pleura: No consolidation, effusion, or pneumothorax. Heart and mediastinum: Normal contours. Bones: No acute abnormality identified. XR/XR chest 1V Impression: No radiographic evidence of acute cardiopulmonary process. Electronically authenticated by: YUMI HERNANDEZ Date: 06/12/2023 15:55
[2023-06-12] MEDS: KETOROLAC TROMETHAMINE 30 MG/ML VIAL IVP (15:12)
[2023-06-12] MEDS: PANTOPRAZOLE SODIUM 40 MG VIAL IV (15:13)
[2023-06-12] MEDS: SUCRALFATE 1 GM TABLET PO ×2 (15:13→21:18)
[2023-06-12] MEDS: ENOXAPARIN SODIUM 80 MG/0.8 ML SYRINGE SUBQ (15:31)
[2023-06-12 16:17] LABS: D Dimer 0.39 mg/L FEU (<=0.59)
[2023-06-12 16:23] LABS: Troponin I High Sensitivity 5.8 pg/mL (4.0-51.3)
[2023-06-12 19:27] LABS: Troponin I High Sensitivity 7.1 pg/mL (4.0-51.3)
[2023-06-12] MEDS: SENNOSIDES/DOCUSATE SODIUM 1 TAB TABLET PO (21:18)
[2023-06-12] MEDS: ATORVASTATIN CALCIUM 40 MG TABLET PO (21:18)
[2023-06-12] MEDS: HYDROCODONE/ACET 10-325 MG TABLET 1 TAB PO (21:18)
[2023-06-12] MEDS: TRAZODONE HCL 150 MG TABLET PO (21:20)
[2023-06-12 22:29] LABS: Troponin I High Sensitivity 6.7 pg/mL (4.0-51.3)
[2023-06-13] VITALS (20 sets, daily range): BP systolic 145–164; BP diastolic 73–80; PULSE 74–92; RESP 18; TEMP 36.2–36.6; O2SAT 92–98
--- NOTE | 2023-06-13 01:21 | XR_ITS ---
The [address] [address] Patient Name: BRODERICK SIEGEL MRN: [id number] date: 1960 Sex: F Assigned Patient Location: [place] Current Patient Location: Accession/Order Number: [id number] Exam Date: 06/13/2023 05:16 Report Date: 06/13/2023 06:57 At the request of: RIVERA COELHO Procedure: XR chest 1V EXAMINATION: XR chest 1V HISTORY: SOB , pneumonia COMPARISON: XR chest 06/12/2023, 06/10/2023 FINDINGS: LUNGS: Underexpanded lungs with patchy and strandy opacities within mid and lower right lung. VASCULATURE: No increased pulmonary vasculature. PLEURA: No pneumothorax, effusion, or pleural thickening. CARDIAC: No cardiomegaly or cardiac silhouette abnormality. MEDIASTINUM: No visible mass or adenopathy. BONES: No fracture or visible bone lesion. OTHER: Negative. XR/XR chest 1V IMPRESSION: 1. Moderate amount of new right basilar infiltrates suggestive of pneumonia. Electronically authenticated by: BERT GONZALEZ Date: 06/13/2023 06:57
[2023-06-13] MEDS: PANTOPRAZOLE SODIUM 40 MG VIAL IV ×2 (02:49→15:47)
[2023-06-13] MEDS: METHYLPREDNISOLONE SOD SUCC PF 125 MG/2 ML VIAL 60 MG IVP ×2 (02:49→08:19)
[2023-06-13] MEDS: PIPERACILLIN SODIUM/TAZOBACTAM 3.375 GM in 0.9 % SODIUM CHLORIDE 50 ML IV (03:43)
[2023-06-13] MEDS: IPRATROPIUM/ALBUTEROL SULFATE 3 ML AMPUL.NEB IH ×4 (04:22→23:36)
[2023-06-13 04:59] LABS: Basophils Percent Auto 0.1 % (0.2-2.0); Hematocrit 35.1 % (36.0-48.0); Hemoglobin 10.9 g/dL (12.0-16.0); Immature Granulocytes Abs Auto 0.04 10^3/uL (0.00-0.03); Immature Granulocytes Pct Auto 0.6 % (0.0-0.5); Lymphocytes Absolute Auto 0.8 10^3/uL (1.2-3.8); Lymphocytes Percent Auto 11.2 % (20.5-60.0); Mean Corpuscular HGB Conc 31.1 g/dL (29.9-35.2); Mean Corpuscular Hemoglobin 23.8 pg (26.7-34.0); Mean Corpuscular Volume 76.6 fL (81.0-99.0); Mean Platelet Volume 10.9 fL (9.5-13.5); Monocytes Absolute Auto 0.3 10^3/uL (0.3-0.8); Monocytes Percent Auto 3.5 % (1.7-12.0); Neutrophils Absolute Auto 6.1 10^3/uL (1.4-6.5); Neutrophils Percent Auto 84.6 % (43.0-75.0); Platelet Count 229 10^3/uL (150-450); Red Blood Count 4.58 10^6/uL (4.20-5.40); Red Cell Distribution Width 16.1 % (11.0-15.0); White Blood Count 7.2 10^3/uL (4.0-11.0)
[2023-06-13 05:02] LABS: Alanine Aminotransferase 21 U/L (14-59); Albumin Globulin Ratio 0.8; Albumin Level 2.9 g/dL (3.4-5.0); Alkaline Phosphatase 63 U/L (46-116); Anion Gap 13.4; Aspartate Amino Transferase 11 U/L (15-37); BUN Creatinine Ratio 24.4; Bilirubin Total 0.3 mg/dL (0.2-1.0); Calcium 8.5 mg/dL (8.5-10.1); Carbon Dioxide 24.7 mmol/L (21.0-32.0); Chloride 98 mmol/L (98-107); Estimated GFR (African America >60 (>=60); Estimated GFR (Non-African Ame >60 (>=60); Globulin 3.6 g/dL; Glucose 278 mg/dL (74-106); Potassium 4.1 mmol/L (3.5-5.1); Sodium 132 mmol/L (136-145); Total Protein 6.5 g/dL (6.4-8.2)
[2023-06-13] MEDS: LEVOTHYROXINE SODIUM 100 MCG TABLET 200 MCG PO (05:29)
--- NOTE | 2023-06-13 05:29 | PC.NURSE ---
Pt had IV to L wrist that was not documented, added to IV assessment. Unsure of insertion date/time.
[2023-06-13] MEDS: INSULIN ASPART 300 UNIT/3 ML PEN SUBQ ×4 (08:15→20:01)
[2023-06-13] MEDS: POTASSIUM CHLORIDE 10 MEQ ER TABLET 20 MEQ PO (08:16)
[2023-06-13] MEDS: ALLOPURINOL 300 MG TABLET PO (08:16)
[2023-06-13] MEDS: HYOSCYAMINE SULFATE 0.125 MG TAB.SUBL PO ×3 (08:16→19:57)
[2023-06-13] MEDS: SUCRALFATE 1 GM TABLET PO ×4 (08:16→19:57)
[2023-06-13] MEDS: FUROSEMIDE 40 MG TABLET PO (08:17)
[2023-06-13] MEDS: BUPROPION HCL 150 MG XL TABLET 24H 300 MG PO (08:17)
[2023-06-13] MEDS: MECLIZINE HCL 12.5 MG TABLET 25 MG PO ×2 (08:17→19:59)
[2023-06-13] MEDS: LIOTHYRONINE SODIUM 5 MCG TABLET PO (08:17)
[2023-06-13] MEDS: CITALOPRAM HYDROBROMIDE 20 MG TABLET PO (08:17)
[2023-06-13] MEDS: AMLODIPINE BESYLATE 5 MG TABLET PO (08:17)
[2023-06-13] MEDS: ACETAMINOPHEN 500 MG TABLET 1000 MG PO ×3 (08:18→20:04)
[2023-06-13] MEDS: TIZANIDINE HCL 4 MG TABLET 2 MG PO ×3 (08:18→19:58)
[2023-06-13] MEDS: DOCUSATE SODIUM 100 MG CAPSULE PO ×3 (08:18→19:58)
[2023-06-13] MEDS: PRIMIDONE 50 MG TABLET PO ×3 (08:18→19:58)
[2023-06-13] MEDS: GABAPENTIN 400 MG CAPSULE 800 MG PO ×3 (08:18→19:57)
[2023-06-13] MEDS: PIOGLITAZONE 15 MG TABLET 30 MG PO (08:18)
[2023-06-13] MEDS: INSULIN DETEMIR 300 UNIT/3 ML INSULN.PEN 20 UNIT SUBQ ×2 (08:19→20:02)
[2023-06-13] MEDS: LEVOFLOXACIN IN DEXTROSE 5 % 750 MG/150 ML IV.SOLN 100 MG IV (08:19)
[2023-06-13] MEDS: ALENDRONATE SODIUM 70 MG TABLET PO (08:24)
--- NOTE | 2023-06-13 09:58 | SWNOTE1 ---
SW received message from Case Management and pt would like to go to [facility], has been in the past. SW reached out to admissions at [facility]. 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 Pt attempted to stay with her niece, but it was not working out. SW to see what therapy recommends and if pt will go skilled or penitentiary to [facility].
--- NOTE | 2023-06-13 10:37 | CM.NOTE ---
Rounds made with Dr. Thorne, no discharge today. 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 Pt was living with niece and that situation is not working out for pt at this time.
--- NOTE | 2023-06-13 10:46 | CM.NOTE ---
Important Message From Medicare discussed with pt, pt verbalizes understanding and signs paper. Original given to pt and copy placed on pt's chart.
--- NOTE | 2023-06-13 11:10 | P.PN_ITS ---
Patient seen and examined, agree with assessment and plan. Improving with antibiotics. Zosyn changed to Rocephin. Continue PT/OT for weakness. Diagnosis: 1. Pneumonia 2. UTI 3. Acute hypoxic respiratory failure 4. Chest pain 5. DM2 6. HTN 7. CHF 8. Urinary retention Progress Note: Subjective Subjective Interval history: Date/time of exam: 06/13/23 1020 The patient is resting comfortably in bed at the time of my exam. She reports mild shortness of breath with activity, but was just up with physical therapy and is maintaining her O2 sats at 96% on room air. She reports feeling improved since admission last Tuesday. We will continue double gram-negative coverage as she apparently failed outpatient treatment with Levaquin prior to admission for this pneumonia and RLL infiltrates persist on imaging. She continues to have significant difficulty with ambulation from her generalized weakness d/t acute illness and prior cervical spine fusions. Disposition: We have sent a referral to a local SNF for further rehab strengthening after discharge. Discharge likely in the next 48 to 72 hours pending acceptance and insurance authorization. Exam Constitutional Vital Signs, click to edit/add: Last Vital Signs Temp 97.9 F 06/13/23 05:26 Pulse 77 06/13/23 09:57 Resp 18 06/13/23 05:26 BP 145/78 H 06/13/23 05:26 Pulse Ox 94 L 06/13/23 10:33 O2 Del Method Room Air 06/13/23 10:33 O2 Flow Rate 1 06/13/23 05:26 Common normals: no apparent distress, oriented x3 and alert General appearance: cooperative Orientation/consciousness: Yes awake [facility] Common normals: normocephalic, head/scalp atraumatic and hearing grossly normal bilaterally Head and scalp: normocephalic and atraumatic Eye Common normals: PERRL and EOMs intact bilaterally General eye: normal appearance of both eyes Neck & C-Spine Common normals: no JVD Chest Common normals: inspection of chest normal Chest: symmetrical chest wall rise Respiratory Common normals: normal respiratory effort, no use of accessory muscles and clear to auscultation bilaterally Effort & inspection: able to speak in complete sentences Auscultation: clear to auscultation bilaterally and diminished lung sounds (BLL) Cardio Common normals: no JVD, regular rate, regular rhythm, S1 normal heart sound, S2 normal heart sound, no gallops, no clicks, no rub and peripheral pulses 2+ throughout Rate: regular rate Rhythm: regular rhythm Heart sounds: S1 normal, S2 normal and murmur (HSM 3/6) Peripheral pulses: pulses 2+ throughout GI Common normals: Normal to inspection, nondistended, normoactive bowel sounds present, soft to palpation, non-tender and no hepatosplenomegaly Palpation: soft and no hepatosplenomegaly Bladder/kidney exam: bladder normal to palpation Extremity Common normals: normal to inspection and no calf tenderness General: edema (Trace bilat insteps); no clubbing and no cyanosis Neuro Common normals: oriented x3, CN's II-XII intact bilaterally, moves all extremities, no focal motor deficits and no sensory deficits noted Sensorium/orientation: awake and alert Psych Common normals: mental status grossly normal Progress Note: Objective Labs Labs: Short CBC 06/13/23 Range/Units 04:11 WBC 7.2 (4.0-11.0) 10^3/uL Hgb 10.9 L (12.0-16.0) g/dL Hct 35.1 L (36.0-48.0) % Plt Count 229 (150-450) 10^3/uL BMP 06/13/23 04:11 Sodium 132 L Potassium 4.1 Chloride 98 Carbon Dioxide 24.7 BUN 22.0 H Creatinine 0.90 Glucose 278 H Calcium 8.5 Liver Function 06/13/23 Range/Units 04:11 Total Bilirubin 0.3 (0.2-1.0) mg/dL AST 11 L (15-37) U/L ALT 21 (14-59) U/L Alkaline Phosphatase 63 (46-116) U/L Albumin 2.9 L (3.4-5.0) g/dL Urine 06/12/23 Range/Units 12:26 Urine Color Lt. yellow (YELLOW) Urine Clarity Clear (CLEAR) Urine pH 6.0 (5.0-9.0) Ur Specific [place] 1.025 (1.005-1.025) Urine Protein Trace (NEG/TRACE) mg/dL Urine Glucose (UA) 500 A (NEGATIVE) mg/dL Imaging Chest x-ray: Attestation: I have reviewed the pertinent imaging results. Radiologist's impression: IMPRESSION: 1. Moderate amount of new right basilar infiltrates suggestive of pneumonia. Progress Note: A&P Assessment and Plan (1) Pneumonia: Assessment and Plan: ACUTE * Confirmed on CTA chest and CXR today * PE unlikely - CTA chest unable to visualize full arterial circulation, but w/ low D-dimer PE is unlikely * Cont DVT prophylaxis lovenox * Continue broad, double gram-neg ABX coverage * Deescalate Zosyn to Rocephin * Continue Levaquin for atypical coverage as well. (Possible failure on OP Levaquin prior to admission) * O2 supplementation weaned off this morning and pt satting well * D/C solumedrol as pt is not wheezing and blood sugars are poorly controlled * CXR in AM for pneumonia surveillance * CBC, CMP in AM (2) Acute hypoxemic respiratory failure: Assessment and Plan: ACUTE * Resolving * Weaned off O2 this AM but high risk for recurrent hypoxia * O2 as needed to keep sats above 90% (3) Atypical chest pain: Assessment and Plan: ACUTE * Resolved * Pleuritic pain * ACS ruled out w/ serial enzymes/EKGs which remained neg for acute ischemia (4) DM2 (diabetes mellitus, type 2): Assessment and Plan: CHRONIC * Continue home Ozempic, lantus, Lispro SS * ACHS glucometer checks * CC diet * A1C 9.4 - consider increasing levemir pending clinical course, but likely defer to outpatient management * D/C glucocorticoids (5) Breast cancer: Assessment and Plan: CHRONIC * Continue home letrozole (6) Depression with anxiety: Assessment and Plan: CHRONIC * Continue home celexa, bupropion, and Trazodone (7) Peripheral neuropathy: Assessment and Plan: CHRONIC * Continue home gabapentin (8) Hypothyroidism: Assessment and Plan: CHRONIC * Continue home levothyroxine & Liothyronine (9) Chronic GERD: Assessment and Plan: CHRONIC * Continue home PPI (10) Gout: Assessment and Plan: CHRONIC * Continue home allopurinol (11) Muscle spasm of back: Assessment and Plan: CHRONIC * Continue home tizanidine, gabapentin (12) HTN (hypertension): Assessment and Plan: CHRONIC * Continue home amlodipine (13) Essential tremor: Assessment and Plan: CHRONIC * Continue home primidone (14) CHF (congestive heart failure): Assessment and Plan: CHRONIC * Continue home Lasix (15) Urinary retention: Assessment and Plan: CHRONIC * Maintain wilson catheter as placed during early hospitalization for urinary retention * Follow up as previously planned with Dr Sanchez, Urologist, as an outpatient - defer wilson management to urology service
--- NOTE | 2023-06-13 11:49 | SWNOTE1 ---
Referral has been sent to [facility] with therapy notes included.
--- NOTE | 2023-06-13 11:49 | SWNOTE1 ---
Precert started to [facility].
[2023-06-13] MEDS: CEFTRIAXONE 1,000 MG in 0.9 % SODIUM CHLORIDE 50 ML 100 MG IV (13:31)
[2023-06-13] MEDS: ENOXAPARIN SODIUM 80 MG/0.8 ML SYRINGE SUBQ (15:47)
[2023-06-13] MEDS: SENNOSIDES/DOCUSATE SODIUM 1 TAB TABLET PO (19:57)
[2023-06-13] MEDS: ATORVASTATIN CALCIUM 40 MG TABLET PO (19:57)
[2023-06-13] MEDS: HYDROCODONE/ACET 10-325 MG TABLET 1 TAB PO (19:58)
[2023-06-14] VITALS (21 sets, daily range): BP systolic 126–181; BP diastolic 54–74; PULSE 72–99; RESP 18–20; TEMP 36.3–36.7; O2SAT 91–96
[2023-06-14] MEDS: PANTOPRAZOLE SODIUM 40 MG VIAL IV ×2 (02:03→15:15)
[2023-06-14] MEDS: IPRATROPIUM/ALBUTEROL SULFATE 3 ML AMPUL.NEB IH ×4 (04:21→22:01)
[2023-06-14 04:54] LABS: Basophils Percent Auto 0.3 % (0.2-2.0); Eosinophils Absolute Auto 0.1 10^3/uL (0.0-0.7); Eosinophils Percent Auto 1.6 % (0.9-7.0); Hematocrit 36.6 % (36.0-48.0); Hemoglobin 11.3 g/dL (12.0-16.0); Immature Granulocytes Abs Auto 0.08 10^3/uL (0.00-0.03); Immature Granulocytes Pct Auto 0.9 % (0.0-0.5); Lymphocytes Absolute Auto 2.3 10^3/uL (1.2-3.8); Lymphocytes Percent Auto 26.2 % (20.5-60.0); Mean Corpuscular HGB Conc 30.9 g/dL (29.9-35.2); Mean Corpuscular Hemoglobin 23.7 pg (26.7-34.0); Mean Corpuscular Volume 76.9 fL (81.0-99.0); Mean Platelet Volume 10.3 fL (9.5-13.5); Monocytes Absolute Auto 0.7 10^3/uL (0.3-0.8); Monocytes Percent Auto 8.6 % (1.7-12.0); Neutrophils Absolute Auto 5.4 10^3/uL (1.4-6.5); Neutrophils Percent Auto 62.4 % (43.0-75.0); Platelet Count 255 10^3/uL (150-450); Red Blood Count 4.76 10^6/uL (4.20-5.40); Red Cell Distribution Width 16.1 % (11.0-15.0); White Blood Count 8.6 10^3/uL (4.0-11.0)
[2023-06-14] MEDS: LEVOTHYROXINE SODIUM 100 MCG TABLET 200 MCG PO (04:58)
[2023-06-14 05:18] LABS: Alanine Aminotransferase 19 U/L (14-59); Albumin Globulin Ratio 0.8; Albumin Level 2.7 g/dL (3.4-5.0); Alkaline Phosphatase 56 U/L (46-116); Anion Gap 11.7; Aspartate Amino Transferase 21 U/L (15-37); BUN Creatinine Ratio 24.4; Bilirubin Total 0.2 mg/dL (0.2-1.0); Calcium 8.3 mg/dL (8.5-10.1); Carbon Dioxide 26.9 mmol/L (21.0-32.0); Chloride 100 mmol/L (98-107); Estimated GFR (African America >60 (>=60); Estimated GFR (Non-African Ame >60 (>=60); Globulin 3.4 g/dL; Glucose 173 mg/dL (74-106); Potassium 3.6 mmol/L (3.5-5.1); Sodium 135 mmol/L (136-145); Total Protein 6.1 g/dL (6.4-8.2)
--- NOTE | 2023-06-14 06:00 | XR_ITS ---
The [address] [address] Patient Name: BRODERICK SIEGEL MRN: [id number] date: 1960 Sex: F Assigned Patient Location: Current Patient Location: Accession/Order Number: [id number] Exam Date: 06/14/2023 08:20 Report Date: 06/14/2023 08:37 At the request of: SAMUEL SOUTH Procedure: XR chest 1V EXAM: Portable chest REASON FOR EXAM: Hypoxia, pneumonia surveillance. TECHNIQUE: A portable frontal view of the chest was obtained. COMPARISON: 06/13/2023. FINDINGS: The lungs are well-inflated and grossly clear. There is stable slight linear stranding in the right lung. The heart and mediastinum are stable in appearance. There is no mass or pathologic adenopathy. Osseous structures are normal. XR/XR chest 1V IMPRESSION: No appreciable interval change. There is no clear evidence of an acute process in the lungs. Electronically authenticated by: JIMMY JAIN Date: 06/14/2023 08:37
[2023-06-14] MEDS: SUCRALFATE 1 GM TABLET PO ×4 (07:58→20:03)
[2023-06-14] MEDS: ALLOPURINOL 300 MG TABLET PO (08:46)
[2023-06-14] MEDS: ACETAMINOPHEN 500 MG TABLET 1000 MG PO ×3 (08:46→20:02)
[2023-06-14] MEDS: PIOGLITAZONE 15 MG TABLET 30 MG PO (08:46)
[2023-06-14] MEDS: DOCUSATE SODIUM 100 MG CAPSULE PO ×3 (08:46→20:02)
[2023-06-14] MEDS: BUPROPION HCL 150 MG XL TABLET 24H 300 MG PO (08:46)
[2023-06-14] MEDS: HYOSCYAMINE SULFATE 0.125 MG TAB.SUBL PO ×3 (08:46→20:02)
[2023-06-14] MEDS: CITALOPRAM HYDROBROMIDE 20 MG TABLET PO (08:46)
[2023-06-14] MEDS: LIOTHYRONINE SODIUM 5 MCG TABLET PO (08:46)
[2023-06-14] MEDS: MECLIZINE HCL 12.5 MG TABLET 25 MG PO ×2 (08:46→20:04)
[2023-06-14] MEDS: GABAPENTIN 400 MG CAPSULE 800 MG PO ×3 (08:47→20:02)
[2023-06-14] MEDS: TIZANIDINE HCL 4 MG TABLET 2 MG PO ×3 (08:47→20:03)
[2023-06-14] MEDS: PRIMIDONE 50 MG TABLET PO ×3 (08:47→20:05)
[2023-06-14] MEDS: POTASSIUM CHLORIDE 10 MEQ ER TABLET 20 MEQ PO (08:47)
[2023-06-14] MEDS: AMLODIPINE BESYLATE 5 MG TABLET PO (08:47)
[2023-06-14] MEDS: FUROSEMIDE 40 MG TABLET PO (08:47)
[2023-06-14] MEDS: LEVOFLOXACIN IN DEXTROSE 5 % 750 MG/150 ML IV.SOLN 100 MG IV (08:48)
[2023-06-14] MEDS: INSULIN DETEMIR 300 UNIT/3 ML INSULN.PEN 20 UNIT SUBQ ×2 (08:48→20:09)
--- NOTE | 2023-06-14 10:22 | CM.NOTE ---
Rounds made with Dr. Thorne pt will discharge to skilled facility ([facility]).
--- NOTE | 2023-06-14 10:25 | PT.DAILY ---
Physical Therapy Daily Note PT Daily Note/Assess Start: 06/14/23 10:22 Freq: Status: Active Protocol: Document 06/14/23 10:22 MOSHE (Rec: 06/14/23 10:25 MOSHE [id number]) Physical Therapy Daily Note/Assessment Time In/Time Out Time In 09:36 Time Out 09:49 Pain In Pain N/A Pain Out Pain N/A Subjective Subjective Pt supine upon arrival. agrees to PT. Denies pain currently. Therapeutic Activity Time Therapeutic Activity Minutes (minutes) 10 Therapeutic Activity Units 1 Therapeutic Activity Treatment Bed Mobility Ability Moderate Assist Chair Transfer Ability Contact Guard Assist Therapeutic Activity Comments Pt transfers from supine>sit with ModA to advance upper body to sit EOB. Pt able to sit EOB without support and no LOB. Pt sit>stand from bed to RW CGA for safety. Amb 20' to restroom with RW, CGA and assist for IV lines/pole. Pt static standing at sink for 5 min while brushing teeth and freshening up. Pt then amb 40' to BS chair with RW and assist with IV pole. Min SOB after activity. Remains in BS chair upon completion with call light in reach and needs met. Total Physical Therapy Time Total Therapy Minutes 10 Total Physical Therapy Units 1 Summary Daily Note Summary Improved gait and transfer ability today.
--- NOTE | 2023-06-14 11:43 | SWNOTE1 ---
SW sent updates to [facility] for precert.
--- NOTE | 2023-06-14 12:42 | P.PN_ITS ---
Patient seen and examined, agree with assessment and plan. Improving with antibiotics and continue. Continue PT/OT for weakness. Awaiting insurance approval for SNF. Diagnosis: 1. Pneumonia 2. UTI 3. Acute hypoxic respiratory failure 4. Chest pain 5. DM2 6. HTN 7. CHF 8. Urinary retention Progress Note: Subjective Subjective Interval history: Date/time of exam: 06/14/23 1015 The patient is resting comfortably in bedside chair at the time of exam. She reports feeling much improved since admission. Her sats remain stable off of oxygen supplementation. She still fills SOB after ambulation but this is not significantly different than her baseline d/t poor conditioning. A repeat CXR today is unchanged and without clear evidence of acute infiltrate (as noted on CTA). Disposition: The patient has been accepted at a local SNF. Discharge pending insurance authorization, likely in the next 24-48 hrs. Exam Constitutional Vital Signs, click to edit/add: Last Vital Signs Temp 97.4 F L 06/14/23 04:54 Pulse 91 H 06/14/23 11:50 Resp 18 06/14/23 04:54 BP 181/73 H 06/14/23 08:47 Pulse Ox 96 06/14/23 10:24 O2 Del Method Room Air 06/14/23 10:24 O2 Flow Rate 1 06/13/23 05:26 Common normals: no apparent distress, oriented x3, alert and well nourished Orientation/consciousness: Yes awake [facility] Common normals: normocephalic, head/scalp atraumatic, hearing grossly normal bilaterally, external ears normal, external nose normal and moist oral mucous membranes Eye Common normals: PERRL, EOMs intact bilaterally, conjunctivae normal and no scleral icterus General eye: normal appearance of both eyes Neck & C-Spine Common normals: supple and no JVD Chest Common normals: inspection of chest normal Chest: symmetrical chest wall rise Respiratory Common normals: normal respiratory effort, no retractions, no use of accessory muscles and clear to auscultation bilaterally Effort & inspection: able to speak in complete sentences Auscultation: clear to auscultation bilaterally and diminished lung sounds (BLL) Cardio Common normals: no JVD, regular rate, regular rhythm, S1 normal heart sound, S2 normal heart sound, no gallops, no clicks, no rub and peripheral pulses 2+ throughout Heart sounds: murmur (HSM 3/6) GI Common normals: Normal to inspection, nondistended, normoactive bowel sounds present, soft to palpation, non-tender, no hepatosplenomegaly, no masses and no bruits Bladder/kidney exam: bladder normal to palpation Back & Pelvis Common normals: thoracic and lumbar spine normal to inspection Extremity Common normals: normal to inspection, normal capillary refill, no calf tenderness and no pedal edema General: normal exam except as noted and edema (Trace bilat insteps); no clubbing and no cyanosis Left lower extremity: lower leg (Calf tenderness, no sign swelling) Neuro Maura Coma Scale: GCS not evaluated Common normals: oriented x3, CN's II-XII intact bilaterally, moves all extremities, no focal motor deficits and no sensory deficits noted Sensorium/orientation: awake and alert Speech: speech normal Motor exam: strength 5/5 throughout Psych Common normals: mental status grossly normal, thought process normal, affect normal and activity/motor behavior normal Thought process: normal thought process Progress Note: Objective Labs Labs: Short CBC 06/14/23 Range/Units 04:27 WBC 8.6 (4.0-11.0) 10^3/uL Hgb 11.3 L (12.0-16.0) g/dL Hct 36.6 (36.0-48.0) % Plt Count 255 (150-450) 10^3/uL BMP 06/14/23 04:27 Sodium 135 L Potassium 3.6 Chloride 100 Carbon Dioxide 26.9 BUN 22.0 H Creatinine 0.90 Glucose 173 H Calcium 8.3 L Liver Function 06/14/23 Range/Units 04:27 Total Bilirubin 0.2 (0.2-1.0) mg/dL AST 21 (15-37) U/L ALT 19 (14-59) U/L Alkaline Phosphatase 56 (46-116) U/L Albumin 2.7 L (3.4-5.0) g/dL Imaging Chest x-ray: Attestation: I have reviewed the pertinent imaging results. Radiologist's impression: IMPRESSION: No appreciable interval change. There is no clear evidence of an acute process in the lungs. Progress Note: A&P Assessment and Plan (1) Pneumonia: Assessment and Plan: ACUTE * Confirmed on CTA chest. * CXR today read w/ no definitive acute process * PE unlikely - CTA chest unable to visualize full arterial circulation, but w/ low D-dimer PE is unlikely * Cont DVT prophylaxis w/ lovenox * Continue broad, double gram-neg ABX coverage * Deescalate Zosyn to Rocephin * Continue Levaquin for atypical coverage as well. (Possible failure on PO Levaquin prior to admission) * Plan 7 day course, Day 4. Likely d/c on Cefidinir as outpatient failure on Levaquin suspected * O2 supplementation weaned off 06/03 - sats remain above 90% on RA * CBC, CMP in AM (2) Acute hypoxemic respiratory failure: Assessment and Plan: ACUTE * Resolved * O2 as needed to keep sats above 90% - remains stable on RA (3) Atypical chest pain: Assessment and Plan: ACUTE * Resolved * Pleuritic pain * ACS ruled out w/ serial enzymes/EKGs which remained neg for acute ischemia (4) DM2 (diabetes mellitus, type 2): Assessment and Plan: CHRONIC * Continue home Ozempic, lantus, Lispro SS * ACHS glucometer checks * CC diet * A1C 9.4 - consider increasing levemir pending clinical course, but likely defer to outpatient management * D/C glucocorticoids (5) Breast cancer: Assessment and Plan: CHRONIC * Continue home letrozole (6) Depression with anxiety: Assessment and Plan: CHRONIC * Continue home celexa, bupropion, and Trazodone (7) Peripheral neuropathy: Assessment and Plan: CHRONIC * Continue home gabapentin (8) Hypothyroidism: Assessment and Plan: CHRONIC * Continue home levothyroxine & Liothyronine (9) Chronic GERD: Assessment and Plan: CHRONIC * Continue home PPI (10) Gout: Assessment and Plan: CHRONIC * Continue home allopurinol (11) Muscle spasm of back: Assessment and Plan: CHRONIC * Continue home tizanidine, gabapentin (12) HTN (hypertension): Assessment and Plan: CHRONIC * Continue home amlodipine (13) Essential tremor: Assessment and Plan: CHRONIC * Continue home primidone (14) CHF (congestive heart failure): Assessment and Plan: CHRONIC * Continue home Lasix (15) Urinary retention: Assessment and Plan: CHRONIC * Maintain wilson catheter as placed during previous hospitalization for urinary retention * Follow up as previously planned with Dr Sanchez, Urologist, as an outpatient - defer wilson management to urology service
[2023-06-14] MEDS: CEFTRIAXONE 1,000 MG in 0.9 % SODIUM CHLORIDE 50 ML 100 MG IV (13:04)
[2023-06-14] MEDS: ENOXAPARIN SODIUM 80 MG/0.8 ML SYRINGE SUBQ (15:15)
--- NOTE | 2023-06-14 15:52 | SWNOTE1 ---
[facility] has NOT received approval yet, they will call once they hear from insurance.
[2023-06-14] MEDS: INSULIN ASPART 300 UNIT/3 ML PEN SUBQ ×2 (16:26→20:11)
[2023-06-14] MEDS: ATORVASTATIN CALCIUM 40 MG TABLET PO (20:03)
[2023-06-14] MEDS: SENNOSIDES/DOCUSATE SODIUM 1 TAB TABLET PO (20:03)
[2023-06-14] MEDS: HYDROCODONE/ACET 10-325 MG TABLET 1 TAB PO (20:04)
[2023-06-15] VITALS (21 sets, daily range): BP systolic 150–173; BP diastolic 60–74; PULSE 71–102; RESP 14–20; TEMP 36.6–36.8; O2SAT 90–98
[2023-06-15] MEDS: PANTOPRAZOLE SODIUM 40 MG VIAL IV ×2 (02:07→16:19)
[2023-06-15] MEDS: LEVOTHYROXINE SODIUM 100 MCG TABLET 200 MCG PO (04:38)
[2023-06-15] MEDS: IPRATROPIUM/ALBUTEROL SULFATE 3 ML AMPUL.NEB IH ×4 (04:51→23:54)
[2023-06-15 04:55] LABS: Basophils Percent Auto 0.5 % (0.2-2.0); Eosinophils Absolute Auto 0.4 10^3/uL (0.0-0.7); Eosinophils Percent Auto 5.5 % (0.9-7.0); Hematocrit 36.4 % (36.0-48.0); Hemoglobin 11.5 g/dL (12.0-16.0); Immature Granulocytes Abs Auto 0.08 10^3/uL (0.00-0.03); Immature Granulocytes Pct Auto 1.2 % (0.0-0.5); Lymphocytes Absolute Auto 2.3 10^3/uL (1.2-3.8); Lymphocytes Percent Auto 35.3 % (20.5-60.0); Mean Corpuscular HGB Conc 31.6 g/dL (29.9-35.2); Mean Corpuscular Hemoglobin 24.3 pg (26.7-34.0); Mean Platelet Volume 10.5 fL (9.5-13.5); Monocytes Absolute Auto 0.6 10^3/uL (0.3-0.8); Monocytes Percent Auto 8.5 % (1.7-12.0); Neutrophils Absolute Auto 3.2 10^3/uL (1.4-6.5); Platelet Count 240 10^3/uL (150-450); Red Blood Count 4.73 10^6/uL (4.20-5.40); Red Cell Distribution Width 16.1 % (11.0-15.0); White Blood Count 6.5 10^3/uL (4.0-11.0)
[2023-06-15 05:15] LABS: Alanine Aminotransferase 21 U/L (14-59); Albumin Globulin Ratio 0.9; Albumin Level 2.8 g/dL (3.4-5.0); Alkaline Phosphatase 58 U/L (46-116); Anion Gap 10.9; Aspartate Amino Transferase 16 U/L (15-37); BUN Creatinine Ratio 19.1; Bilirubin Total 0.2 mg/dL (0.2-1.0); Calcium 8.1 mg/dL (8.5-10.1); Carbon Dioxide 26.6 mmol/L (21.0-32.0); Chloride 101 mmol/L (98-107); Estimated GFR (African America >60 (>=60); Estimated GFR (Non-African Ame 60 (>=60); Globulin 3.2 g/dL; Glucose 120 mg/dL (74-106); Potassium 3.5 mmol/L (3.5-5.1); Sodium 135 mmol/L (136-145)
--- NOTE | 2023-06-15 06:00 | XR_ITS ---
The [address] [address] Patient Name: BRODERICK SIEGEL MRN: [id number] date: 1960 Sex: F Assigned Patient Location: [place] Current Patient Location: [place] Accession/Order Number: [id number] Exam Date: 06/15/2023 06:18 Report Date: 06/15/2023 07:28 At the request of: SAMUEL SOUTH Procedure: XR chest 1V EXAM: XR chest 1V HISTORY: Hypoxia, Pneumonia surveillance COMPARISON: 06/14/2023 TECHNIQUE: AP portable FINDINGS: LUNGS: Low lung volumes. Mild right basilar infiltrate, atelectasis favored. The left lung is clear. VASCULATURE: No increased pulmonary vasculature. PLEURA: No pneumothorax, effusion, or pleural thickening. CARDIAC: No cardiomegaly or cardiac silhouette abnormality. MEDIASTINUM: No visible mass or adenopathy. BONES: No fracture or visible bone lesion. OTHER: Negative. XR/XR chest 1V IMPRESSION: Slight progression of right basilar infiltrate, atelectasis favored Electronically authenticated by: BERTRAM BECKFORD Date: 06/15/2023 07:28
[2023-06-15] MEDS: LEVOFLOXACIN IN DEXTROSE 5 % 750 MG/150 ML IV.SOLN 100 MG IV (08:28)
[2023-06-15] MEDS: DOCUSATE SODIUM 100 MG CAPSULE PO ×3 (08:29→20:06)
[2023-06-15] MEDS: 0.9 % SODIUM CHLORIDE 250 ML 10 ML IV (08:29)
[2023-06-15] MEDS: AMLODIPINE BESYLATE 5 MG TABLET PO (08:29)
[2023-06-15] MEDS: CITALOPRAM HYDROBROMIDE 20 MG TABLET PO (08:29)
[2023-06-15] MEDS: GABAPENTIN 400 MG CAPSULE 800 MG PO ×3 (08:29→20:05)
[2023-06-15] MEDS: HYOSCYAMINE SULFATE 0.125 MG TAB.SUBL PO ×3 (08:29→20:05)
[2023-06-15] MEDS: LIOTHYRONINE SODIUM 5 MCG TABLET PO (08:29)
[2023-06-15] MEDS: ALENDRONATE SODIUM 70 MG TABLET PO (08:29)
[2023-06-15] MEDS: PIOGLITAZONE 15 MG TABLET 30 MG PO (08:29)
[2023-06-15] MEDS: BUPROPION HCL 150 MG XL TABLET 24H 300 MG PO (08:29)
[2023-06-15] MEDS: MECLIZINE HCL 12.5 MG TABLET 25 MG PO ×2 (08:30→20:06)
[2023-06-15] MEDS: TIZANIDINE HCL 4 MG TABLET 2 MG PO ×3 (08:30→20:06)
[2023-06-15] MEDS: SUCRALFATE 1 GM TABLET PO ×3 (08:30→20:05)
[2023-06-15] MEDS: FUROSEMIDE 40 MG TABLET PO (08:30)
[2023-06-15] MEDS: ALLOPURINOL 300 MG TABLET PO (08:30)
[2023-06-15] MEDS: POTASSIUM CHLORIDE 10 MEQ ER TABLET 20 MEQ PO (08:30)
[2023-06-15] MEDS: PRIMIDONE 50 MG TABLET PO ×3 (08:30→20:05)
[2023-06-15] MEDS: ACETAMINOPHEN 500 MG TABLET 1000 MG PO ×3 (08:32→20:05)
[2023-06-15] MEDS: INSULIN DETEMIR 300 UNIT/3 ML INSULN.PEN 20 UNIT SUBQ ×2 (08:34→20:09)
--- NOTE | 2023-06-15 10:43 | CM.NOTE ---
Rounds made with Dr. Thorne, pt overall feeling better. Pt does c/o sciatica pain today. Pt will discharge to [facility] skilled.
--- NOTE | 2023-06-15 15:12 | P.PN_ITS ---
Patient seen and examined, agree with assessment and plan. Improving with antibiotics and continue. Continue PT/OT for weakness. Insurance did not approve SNF and they will attempt peer to peer. Diagnosis: 1. Pneumonia 2. UTI 3. Acute hypoxic respiratory failure 4. Chest pain 5. DM2 6. HTN 7. CHF 8. Urinary retention Progress Note: Subjective Subjective Interval history: Date/time of exam: 06/15/23 0950 The patient is resting in bed and c/o sciatica pain. She was encouraged to get up with PT and walk as much as possible. She denies any CP, SOB, N/V/D, dizziness, or any other acute complaint. Discharge to a local SNF pending insurance authorization, likely in the next 24 hrs. Exam Constitutional Vital Signs, click to edit/add: Last Vital Signs Temp 98.2 F 06/15/23 14:51 Pulse 88 06/15/23 14:51 Resp 18 06/15/23 14:51 BP 157/74 H 06/15/23 14:51 Pulse Ox 93 L 06/15/23 14:51 O2 Del Method Room Air 06/15/23 14:51 O2 Flow Rate 1 06/13/23 05:26 Documenting provider has reviewed patient's vital signs: yes Common normals: no apparent distress, oriented x3, alert and well nourished Orientation/consciousness: Yes awake [facility] Common normals: normocephalic, head/scalp atraumatic, hearing grossly normal bilaterally, external ears normal, external nose normal and moist oral mucous membranes Eye Common normals: PERRL, EOMs intact bilaterally, conjunctivae normal and no scleral icterus Respiratory Common normals: normal respiratory effort, no retractions, no use of accessory muscles and clear to auscultation bilaterally Effort & inspection: able to speak in complete sentences Cardio Common normals: no JVD, regular rate, regular rhythm, S1 normal heart sound, S2 normal heart sound, no gallops, no clicks, no rub and peripheral pulses 2+ throughout Heart sounds: murmur (HSM 3/6) GI Common normals: Normal to inspection, nondistended, normoactive bowel sounds present, soft to palpation, non-tender, no hepatosplenomegaly, no masses and no bruits Bladder/kidney exam: bladder normal to palpation Back & Pelvis Common normals: thoracic and lumbar spine normal to inspection Extremity Common normals: normal to inspection, full ROM, normal capillary refill, no calf tenderness and no pedal edema General: no clubbing and no cyanosis Neuro Common normals: CN's II-XII intact bilaterally, moves all extremities, no focal motor deficits and no sensory deficits noted Psych Common normals: mental status grossly normal, thought process normal, affect normal and activity/motor behavior normal Progress Note: Objective Labs Labs: Short CBC 06/15/23 Range/Units 04:23 WBC 6.5 (4.0-11.0) 10^3/uL Hgb 11.5 L (12.0-16.0) g/dL Hct 36.4 (36.0-48.0) % Plt Count 240 (150-450) 10^3/uL BMP 06/15/23 04:23 Sodium 135 L Potassium 3.5 Chloride 101 Carbon Dioxide 26.6 BUN 18.0 Creatinine 0.94 Glucose 120 H Calcium 8.1 L Liver Function 06/15/23 Range/Units 04:23 Total Bilirubin 0.2 (0.2-1.0) mg/dL AST 16 (15-37) U/L ALT 21 (14-59) U/L Alkaline Phosphatase 58 (46-116) U/L Albumin 2.8 L (3.4-5.0) g/dL Progress Note: A&P Assessment and Plan (1) Pneumonia: Assessment and Plan: ACUTE * Confirmed on CTA chest. * CXR today w/ slight increase of RLL infiltrate but atelectasis is favored * PE unlikely - CTA chest unable to visualize full arterial circulation, but w/ low D-dimer PE is unlikely * Cont DVT prophylaxis w/ lovenox * Continue broad, double gram-neg ABX coverage * Deescalate Zosyn to Rocephin * Continue Levaquin for atypical coverage as well. (Possible failure on PO Levaquin prior to admission) * Plan 7 day course, Day 5/7. Likely d/c on Cefidinir as outpatient failure on Levaquin suspected * O2 supplementation weaned off 06/03 - sats remain above 90% on RA * CBC, CMP in AM (2) Acute hypoxemic respiratory failure: Assessment and Plan: ACUTE * Resolved * O2 as needed to keep sats above 90% - remains stable on RA (3) Atypical chest pain: Assessment and Plan: ACUTE * Resolved * Pleuritic pain * ACS ruled out w/ serial enzymes/EKGs which remained neg for acute ischemia (4) DM2 (diabetes mellitus, type 2): Assessment and Plan: CHRONIC * Continue home Ozempic, lantus, Lispro SS * ACHS glucometer checks * CC diet * A1C 9.4 - consider increasing levemir pending clinical course, but likely defer to outpatient management * D/C glucocorticoids (5) Breast cancer: Assessment and Plan: CHRONIC * Continue home letrozole (6) Depression with anxiety: Assessment and Plan: CHRONIC * Continue home celexa, bupropion, and Trazodone (7) Peripheral neuropathy: Assessment and Plan: CHRONIC * Continue home gabapentin (8) Hypothyroidism: Assessment and Plan: CHRONIC * Continue home levothyroxine & Liothyronine (9) Chronic GERD: Assessment and Plan: CHRONIC * Continue home PPI (10) Gout: Assessment and Plan: CHRONIC * Continue home allopurinol (11) Muscle spasm of back: Assessment and Plan: CHRONIC * Continue home tizanidine, gabapentin (12) HTN (hypertension): Assessment and Plan: CHRONIC * Continue home amlodipine (13) Essential tremor: Assessment and Plan: CHRONIC * Continue home primidone (14) CHF (congestive heart failure): Assessment and Plan: CHRONIC * Continue home Lasix (15) Urinary retention: Assessment and Plan: CHRONIC * Maintain wilson catheter as placed during previous hospitalization for urinary retention * Follow up as previously planned with Dr Sanchez, Urologist, as an outpatient - defer wilson management to urology service
--- NOTE | 2023-06-15 15:51 | SWNOTE1 ---
ARNOLD has reached out to Ashley at [facility] this morning, afternoon, and at 3:50. She has not heard anything back from insurance at this time. Updates have been sent.
[2023-06-15] MEDS: ENOXAPARIN SODIUM 80 MG/0.8 ML SYRINGE SUBQ (16:18)
[2023-06-15] MEDS: CEFTRIAXONE 1,000 MG in 0.9 % SODIUM CHLORIDE 50 ML 100 MG IV (16:19)
--- NOTE | 2023-06-15 16:36 | SWNOTE1 ---
ARNOLD received message from Ashley at [facility]. Pt's insurance is denying for skilled. ARNOLD called Ashley back to see if there is a peer to peer option, she stated she is waiting to hear from her billing dept and she will let SW know. Ashley will be in at 7am, ARNOLD advised her to call ARNOLD on cell phone if there is a peer to peer option so it can be send to doctor STEPHIE. Ashley also stated pt was planning on coming [facility] and she is checking with her billing office to make sure they can accept her [facility] from hospital. ARNOLD updated nursing, doctor, nurse practitioner, and pt.
[2023-06-15] MEDS: SENNOSIDES/DOCUSATE SODIUM 1 TAB TABLET PO (20:05)
[2023-06-15] MEDS: HYDROCODONE/ACET 10-325 MG TABLET 1 TAB PO (20:06)
[2023-06-15] MEDS: ATORVASTATIN CALCIUM 40 MG TABLET PO (20:06)
[2023-06-15] MEDS: INSULIN ASPART 300 UNIT/3 ML PEN SUBQ (20:08)
[2023-06-16] VITALS (15 sets, daily range): BP systolic 128–161; BP diastolic 69–81; PULSE 80–101; RESP 18–20; TEMP 36.6–36.7; O2SAT 91–97
[2023-06-16] MEDS: PANTOPRAZOLE SODIUM 40 MG VIAL IV (02:40)
[2023-06-16 04:09] LABS: Glucometer 172 mg/dL (74-106)
[2023-06-16] MEDS: IPRATROPIUM/ALBUTEROL SULFATE 3 ML AMPUL.NEB IH ×4 (04:15→23:37)
[2023-06-16] MEDS: LEVOTHYROXINE SODIUM 100 MCG TABLET 200 MCG PO (04:19)
[2023-06-16 05:41] LABS: Glucometer 216 mg/dL (74-106)
[2023-06-16 05:56] LABS: Basophils Percent Auto 0.5 % (0.2-2.0); Eosinophils Absolute Auto 0.4 10^3/uL (0.0-0.7); Hemoglobin 11.5 g/dL (12.0-16.0); Immature Granulocytes Abs Auto 0.19 10^3/uL (0.00-0.03); Immature Granulocytes Pct Auto 2.3 % (0.0-0.5); Lymphocytes Percent Auto 36.2 % (20.5-60.0); Mean Corpuscular HGB Conc 31.1 g/dL (29.9-35.2); Mean Corpuscular Hemoglobin 23.9 pg (26.7-34.0); Mean Corpuscular Volume 76.8 fL (81.0-99.0); Mean Platelet Volume 10.4 fL (9.5-13.5); Monocytes Absolute Auto 0.8 10^3/uL (0.3-0.8); Monocytes Percent Auto 9.9 % (1.7-12.0); Neutrophils Absolute Auto 3.8 10^3/uL (1.4-6.5); Neutrophils Percent Auto 46.1 % (43.0-75.0); Platelet Count 266 10^3/uL (150-450); Red Blood Count 4.82 10^6/uL (4.20-5.40); Red Cell Distribution Width 16.6 % (11.0-15.0); White Blood Count 8.3 10^3/uL (4.0-11.0)
--- NOTE | 2023-06-16 06:00 | XR_ITS ---
The [address] [address] Patient Name: BRODERICK SIEGEL MRN: [id number] date: 1960 Sex: F Assigned Patient Location: Current Patient Location: Accession/Order Number: [id number] Exam Date: 06/16/2023 04:23 Report Date: 06/16/2023 05:02 At the request of: SAMUEL SOUTH Procedure: XR chest 1V EXAM: XR chest 1V HISTORY: Hypoxia, Pneumonia surveillance COMPARISON: Chest x-ray, 06/15/2023. TECHNIQUE: AP upright portable chest x-ray. FINDINGS: The patient is mildly rotated to the right. The heart, mediastinum and pulmonary vascularity are within normal limits. There is mild streaky right basilar atelectasis with mild asymmetric elevation of the right diaphragm. The lungs and pleural spaces appear otherwise clear. XR/XR chest 1V IMPRESSION: Mild streaky right basilar atelectasis. The lungs appear otherwise clear. Electronically authenticated by: FABY NAVARRETE Date: 06/16/2023 05:02
[2023-06-16 06:16] LABS: Alanine Aminotransferase 23 U/L (14-59); Albumin Globulin Ratio 0.8; Albumin Level 2.7 g/dL (3.4-5.0); Alkaline Phosphatase 61 U/L (46-116); Anion Gap 13.2; Aspartate Amino Transferase 15 U/L (15-37); BUN Creatinine Ratio 15.8; Bilirubin Total 0.2 mg/dL (0.2-1.0); Calcium 8.2 mg/dL (8.5-10.1); Carbon Dioxide 22.9 mmol/L (21.0-32.0); Chloride 99 mmol/L (98-107); Estimated GFR (African America >60 (>=60); Estimated GFR (Non-African Ame 59 (>=60); Globulin 3.2 g/dL; Glucose 223 mg/dL (74-106); Potassium 3.1 mmol/L (3.5-5.1); Sodium 132 mmol/L (136-145); Total Protein 5.9 g/dL (6.4-8.2)
[2023-06-16] MEDS: POTASSIUM CHLORIDE 10 MEQ ER TABLET 20 MEQ PO (09:26)
[2023-06-16] MEDS: FUROSEMIDE 40 MG TABLET PO (09:26)
[2023-06-16] MEDS: SUCRALFATE 1 GM TABLET PO ×4 (09:26→21:38)
[2023-06-16] MEDS: PIOGLITAZONE 15 MG TABLET 30 MG PO (09:26)
[2023-06-16] MEDS: BUPROPION HCL 150 MG XL TABLET 24H 300 MG PO (09:26)
[2023-06-16] MEDS: CITALOPRAM HYDROBROMIDE 20 MG TABLET PO (09:27)
[2023-06-16] MEDS: ALLOPURINOL 300 MG TABLET PO (09:27)
[2023-06-16] MEDS: AMLODIPINE BESYLATE 5 MG TABLET PO (09:27)
[2023-06-16] MEDS: LIOTHYRONINE SODIUM 5 MCG TABLET PO (09:27)
[2023-06-16] MEDS: INSULIN ASPART 300 UNIT/3 ML PEN SUBQ ×4 (09:27→21:36)
[2023-06-16] MEDS: INSULIN DETEMIR 300 UNIT/3 ML INSULN.PEN 20 UNIT SUBQ ×2 (09:29→21:37)
[2023-06-16] MEDS: ALENDRONATE SODIUM 70 MG TABLET PO (09:35)
[2023-06-16] MEDS: HYOSCYAMINE SULFATE 0.125 MG TAB.SUBL PO ×3 (09:35→21:39)
[2023-06-16] MEDS: GABAPENTIN 400 MG CAPSULE 800 MG PO ×3 (09:35→21:39)
[2023-06-16] MEDS: TIZANIDINE HCL 4 MG TABLET 2 MG PO ×3 (09:36→21:39)
[2023-06-16] MEDS: DOCUSATE SODIUM 100 MG CAPSULE PO ×3 (09:36→21:39)
[2023-06-16] MEDS: PRIMIDONE 50 MG TABLET PO ×3 (09:36→21:38)
[2023-06-16] MEDS: ACETAMINOPHEN 500 MG TABLET 1000 MG PO ×3 (09:36→21:39)
--- NOTE | 2023-06-16 09:42 | SWNOTE1 ---
SW spoke with Ashley at [facility] and peer to peer is not an option at this time. 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
[2023-06-16] MEDS: MECLIZINE HCL 12.5 MG TABLET 25 MG PO ×2 (09:43→21:39)
[2023-06-16] MEDS: LEVOFLOXACIN IN DEXTROSE 5 % 750 MG/150 ML IV.SOLN 100 MG IV (10:37)
--- NOTE | 2023-06-16 11:13 | SWNOTE1 ---
SW submitted level of care to Area office on aging.
[2023-06-16 11:14] LABS: Glucometer 178 mg/dL (74-106)
--- NOTE | 2023-06-16 11:39 | CM.NOTE ---
Rounds made with janelle Clark for discharge today. Insurance denied skilled rehab. Pt's plan is to go [facility] to [place] upon discharge.
--- NOTE | 2023-06-16 11:44 | P.DS_ITS ---
Patient seen and examined, agree with assessment and plan. Improving with antibiotics and continue. Continue PT/OT for weakness. Insurance did not approve SNF and patient will go self pay. Diagnosis: 1. Pneumonia 2. UTI 3. Acute hypoxic respiratory failure 4. Chest pain 5. DM2 6. HTN 7. CHF 8. Urinary retention DS: Providers Provider Date of admission: 06/11/23 11:46 Primary care physician: Raghav Thorne MD Consults: 06/11/23 11:46 Consult to Parks Recreation Director Routine Reason for consult:: Residential 06/12/23 12:31 Physical Therapy Eval and Treat Routine Reason for consultation: placement Has provider been notified: No 06/13/23 09:26 Occupational Therapy Eval and Treat Routine Reason for consultation: Generalized weakness, SNF placement Discharging clinician: Gladys Hernandez DS: Diagnosis Discharge Diagnosis (1) Pneumonia: (2) Acute hypoxemic respiratory failure: (3) Atypical chest pain: (4) DM2 (diabetes mellitus, type 2): (5) Breast cancer: (6) Depression with anxiety: (7) Peripheral neuropathy: (8) Hypothyroidism: (9) Chronic GERD: (10) Gout: (11) Muscle spasm of back: (12) HTN (hypertension): (13) Essential tremor: (14) CHF (congestive heart failure): (15) Urinary retention: DS: Summary Hospital Course Hospital Course: The patient was admitted with atypical chest pain and associated shortness of breath. Her chest discomfort was pleuritic in nature and ACS was not clinically suspected. Serial cardiac enzymes remained negative and no evidence of acute ischemia on EKGs. Her chest discomfort completely resolved. There was some clinical suspicion for PE and a CTA of the chest was obtained which was negative for PE. The CTA did note bilateral infiltrates and the patient was initiated on IV antibiotics. She was initially on O2 supplementation but this was weaned off successfully. 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 We recommend further PT strengthening if available. She should follow up with her PCP within one week. She should also follow up with Dr Sanchez, urologist, [facility] as she still has an indwelling wilson catheter placed during an earlier admission for urinary retention and a follow up appointment has not yet been made. She is discharged in stable condition with a prescript for two more days of cefdinir to complete a 7 day course of treatment for pneumonia. Time Spent with Patient Time attestation: Total time spent providing and/or coordinating discharge services: Time spent: greater than 30 minutes Specific discharge activities: Physical exam, discussion of discharge plan, questions answered. Exam Constitutional Vital Signs, click to edit/add: Last Vital Signs Temp 98 F 06/16/23 05:34 Pulse 83 06/16/23 11:32 Resp 20 06/16/23 08:00 BP 128/69 06/16/23 05:34 Pulse Ox 95 06/16/23 11:32 O2 Del Method Room Air 06/16/23 11:32 O2 Flow Rate 1 06/13/23 05:26 Common normals: no apparent distress, oriented x3 and alert General appearance: cooperative Orientation/consciousness: Yes awake HENMT Common normals: normocephalic and head/scalp atraumatic Head and scalp: normocephalic and atraumatic Eye Common normals: PERRL, EOMs intact bilaterally, conjunctivae normal and no scleral icterus Respiratory Common normals: normal respiratory effort, no use of accessory muscles and clear to auscultation bilaterally Effort & inspection: able to speak in complete sentences and symmetric chest movement Auscultation: diminished lung sounds (BLL) Cardio Common normals: no JVD, regular rate, regular rhythm, S1 normal heart sound, S2 normal heart sound, no gallops, no clicks, no murmurs, no rub and peripheral pulses 2+ throughout GI Common normals: Normal to inspection, nondistended, normoactive bowel sounds present, soft to palpation and non-tender Bladder/kidney exam: bladder normal to palpation Extremity Common normals: normal to inspection, full ROM, normal capillary refill and no pedal edema General: no clubbing and no cyanosis Neuro Common normals: oriented x3, CN's II-XII intact bilaterally, moves all extremities, no focal motor deficits and no sensory deficits noted Sensorium/orientation: awake and alert Speech: speech normal Psych Common normals: mental status grossly normal and activity/motor behavior normal Appearance: grossly normal DS: Data Data Completed and Pending Labs on day of discharge: Labs from last 24 hours 06/16/23 06/16/23 06/16/23 11:13 05:40 05:05 WBC 8.3 RBC 4.82 Hgb 11.5 L Hct 37.0 MCV 76.8 L MCH 23.9 L MCHC 31.1 RDW 16.6 H Plt Count 266 MPV 10.4 Neut % (Auto) 46.1 Lymph % (Auto) 36.2 [place] % (Auto) 9.9 Eos % (Auto) 5.0 Baso % (Auto) 0.5 Neut # (Auto) 3.8 Lymph # (Auto) 3.0 [place] # (Auto) 0.8 Eos # (Auto) 0.4 Baso # (Auto) 0.0 Abs Immat Gran (auto) 0.19 H Imm/Tot Granulo (auto) 2.3 H Sodium 132 L Potassium 3.1 L Chloride 99 Carbon Dioxide 22.9 Anion Gap 13.2 BUN 15.0 Creatinine 0.95 Est GFR ( Amer) >60 Est GFR (Non-Af Amer) 59 L BUN/Creatinine Ratio 15.8 Glucose 223 H Calcium 8.2 L Total Bilirubin 0.2 AST 15 ALT 23 Alkaline Phosphatase 61 Total Protein 5.9 L Albumin 2.7 L Globulin 3.2 Albumin/Globulin Ratio 0.8 POC Glucose 178 H 216 H 06/16/23 04:08 WBC RBC Hgb Hct MCV MCH MCHC RDW Plt Count MPV Neut % (Auto) Lymph % (Auto) [place] % (Auto) Eos % (Auto) Baso % (Auto) Neut # (Auto) Lymph # (Auto) [place] # (Auto) Eos # (Auto) Baso # (Auto) Abs Immat Gran (auto) Imm/Tot Granulo (auto) Sodium Potassium Chloride Carbon Dioxide Anion Gap BUN Creatinine Est GFR ( Amer) Est GFR (Non-Af Amer) BUN/Creatinine Ratio Glucose Calcium Total Bilirubin AST ALT Alkaline Phosphatase Total Protein Albumin Globulin Albumin/Globulin Ratio POC Glucose 172 H Imaging 2D Echo: Attestation: I have reviewed the pertinent imaging results. Radiologist's impression: CONCLUSION: 1. Normal ventricular systolic function. LVEF is 55%. 2. No significant valvular dysfunction. 3. Normal right-sided pressures. 4. No pericardial effusion. Chest x-ray: Attestation: I have reviewed the pertinent imaging results. Radiologist's impression: IMPRESSION: Mild streaky right basilar atelectasis. The lungs appear otherwise clear. CTA Chest: Attestation: I have reviewed the pertinent imaging results. Radiologist's impression: IMPRESSION: 1. No large saddle embolus. Examination is limited for the diagnosis of pulmonary emphysema within the lobar, interlobar, segmental and subsegmental pulmonary arteries due to suboptimal contrast bolus. Moderate cardiomegaly without evidence of right heart strain. 2. Bilateral patchy opacities which may represent infectious or inflammatory etiology. 3. Small hiatal hernia. 4. Probable hepatic steatosis. Discharge Plan Discharge Disposition: [facility] Condition: Fair Discharge Medications: New cefdinir 300 mg capsule 300 mg PO BID 2 Days Qty: 4 0RF Continued nitrofurantoin monohyd/m-cryst 100 mg capsule 100 mg PO Q12H levothyroxine 200 mcg tablet 200 mcg PO DAILY meclizine 25 mg tablet 25 mg PO BID furosemide 40 mg tablet 40 mg PO DAILY letrozole 2.5 mg tablet 2.5 mg PO Q24H tizanidine 4 mg tablet 2 mg PO Q8H citalopram 20 mg tablet 20 mg PO DAILY bupropion HCl 300 mg tablet extended release 24 hr 300 mg PO DAILY amlodipine 5 mg tablet 5 mg PO DAILY pioglitazone 30 mg tablet 30 mg PO DAILY pantoprazole 40 mg tablet,delayed release (DR/EC) 40 mg PO DAILY potassium chloride 20 mEq tablet extended release 20 meq PO DAILY allopurinol 300 mg tablet 300 mg PO DAILY primidone 50 mg tablet 50 mg PO Q8H gabapentin 400 mg capsule 800 mg PO TID liothyronine 5 mcg tablet 5 mcg PO DAILY docusate sodium [Colace] 100 mg capsule 100 mg PO TID cholecalciferol (vitamin D3) 50 mcg (2,000 unit) capsule 2,000 unit PO DAILY acetaminophen [Aphen] 325 mg tablet 1,000 mg PO TID hyoscyamine sulfate 0.125 mg tablet,disintegrating 0.125 mg PO Q8H atorvastatin 40 mg tablet 40 mg PO DAILY senna 187 mg tablet 50 mg PO DAILY alendronate 70 mg tablet 70 mg PO .TUESDAY Ozempic 1 mg/dose (2 mg/1.5 mL) pen injector 0.5 mg subcut QWEEK insulin lispro 100 unit/mL insulin pen 1 sliding scale dose SUBCUT ACHS insulin glargine [Lantus U-100 Insulin] 100 unit/mL solution 19 unit subcut DAILY trazodone 150 mg tablet 100 mg PO BEDTIME hydrocodone-acetaminophen 10-325 mg tablet 1 tab PO BEDTIME Discontinued levofloxacin 750 mg tablet 750 mg PO Q24H Activity Restrictions/Additional Instructions: - SNF to make follow up appt with Dr Sanchez, Urologist, [facility] to assess for void trial/Wilson discontinuation - Consider PT for strengthening Forms: Portal Instructions Follow Up Appointments: - Dr Thorne, PCP, within 1 week - Dr Sanchez, Urologist, [facility] to assess for void trial/Wilson discontinuation
--- NOTE | 2023-06-16 11:51 | PT.DAILY ---
Physical Therapy Daily Note PT Daily Note/Assess Start: 06/14/23 10:22 Freq: Status: Active Protocol: Document 06/16/23 11:45 MOSHE (Rec: 06/16/23 11:51 CLARITAMAARA [id number]) Physical Therapy Daily Note/Assessment Time In/Time Out Time In 11:00 Time Out 11:10 Pain In Pain Level 7 Pain Out Pain Level 7 Subjective Subjective Pt is supine upon arrival. Cont to have high sciatic pain - /10. Agreeable to PT. Therapeutic Exercise Time Therapeutic Exercise Minutes (minutes) 3 Therapeutic Exercise Units 0 Therapeutic Exercise Treatment Therapeutic Exercise Treatment Sitting ther ex complete on EOB unsupported - 10x AP, LAQ, and marches. Denies increased pain with this. Therapeutic Activity Time Therapeutic Activity Minutes (minutes) 7 Therapeutic Activity Units 1 Therapeutic Activity Treatment Bed Mobility Ability Moderate Assist Chair Transfer Ability Contact Guard Assist Therapeutic Activity Comments Pt performs supine>sit with ModA to advance upper body to sit EOB. Sits EOB unsupported to complete bilat LE strengthening ex - no LOB. Sit >stand to RW CGA for safety. Pt amb 100' with RW, SBA with short step length with shuffle gait. Pt returned to room ModA to advance LE's into bed. Remains in supine with call light in reach and bed alarm on and nursing was present. Total Physical Therapy Time Total Therapy Minutes 10 Total Physical Therapy Units 1 Summary Daily Note Summary Improved gait endurance with min SOB upon completion.
--- NOTE | 2023-06-16 12:09 | SWNOTE1 ---
Level of Care received from Area office on aging. SW sent to Ashley at [facility], waiting to hear back.
--- NOTE | 2023-06-16 13:11 | SWNOTE1 ---
ARNOLD received email back from Ashley and she stated the hr business partner stated they have to wait for authorization for them to approve penitentiary care under her medicaid. ARNOLD let her know ususally once the PASR and level of care is approved they can go. She stated the hr business partner has state they we have to wait for the approval.
--- NOTE | 2023-06-16 15:27 | SWNOTE1 ---
ARNOLD reached out to [facility] and they can't accept until they get the auth on there end from medicaid. ARNOLD let her know SW here until 4:30, will have packet ready on floor. Ashley will call if after 4:30.
[2023-06-16] MEDS: ENOXAPARIN SODIUM 80 MG/0.8 ML SYRINGE SUBQ (15:36)
--- NOTE | 2023-06-16 16:18 | SWNOTE1 ---
SW did speak to pt and possibility that she may stay tonight. Pt voiced understanding.
[2023-06-16 17:00] LABS: Glucometer 141 mg/dL (74-106)
[2023-06-16] MEDS: HYDROCODONE/ACET 10-325 MG TABLET 1 TAB PO (21:38)
[2023-06-16] MEDS: SENNOSIDES/DOCUSATE SODIUM 1 TAB TABLET PO (21:38)
[2023-06-16] MEDS: ATORVASTATIN CALCIUM 40 MG TABLET PO (21:39)
[2023-06-16] MEDS: TRAZODONE HCL 150 MG TABLET PO (21:40)
[2023-06-17] VITALS (9 sets, daily range): BP systolic 101–144; BP diastolic 58–78; PULSE 83–102; RESP 16–20; TEMP 36.6–36.8; O2SAT 90–97
[2023-06-17] MEDS: IPRATROPIUM/ALBUTEROL SULFATE 3 ML AMPUL.NEB IH ×4 (04:03→23:07)
[2023-06-17] MEDS: LEVOTHYROXINE SODIUM 100 MCG TABLET 200 MCG PO (06:18)
[2023-06-17] MEDS: SUCRALFATE 1 GM TABLET PO ×2 (07:57→11:34)
[2023-06-17] MEDS: ALLOPURINOL 300 MG TABLET PO (09:38)
[2023-06-17] MEDS: AMLODIPINE BESYLATE 5 MG TABLET PO (09:38)
[2023-06-17] MEDS: CITALOPRAM HYDROBROMIDE 20 MG TABLET PO (09:38)
[2023-06-17] MEDS: BUPROPION HCL 150 MG XL TABLET 24H 300 MG PO (09:38)
[2023-06-17] MEDS: FUROSEMIDE 40 MG TABLET PO (09:39)
[2023-06-17] MEDS: INSULIN DETEMIR 300 UNIT/3 ML INSULN.PEN 20 UNIT SUBQ ×2 (09:42→22:39)
[2023-06-17] MEDS: PIOGLITAZONE 15 MG TABLET 30 MG PO (09:43)
[2023-06-17] MEDS: LIOTHYRONINE SODIUM 5 MCG TABLET PO (09:43)
[2023-06-17] MEDS: MECLIZINE HCL 12.5 MG TABLET 25 MG PO ×2 (09:43→22:41)
[2023-06-17] MEDS: POTASSIUM CHLORIDE 10 MEQ ER TABLET 20 MEQ PO (09:44)
[2023-06-17] MEDS: HYDROCODONE/ACET 10-325 MG TABLET 1 TAB PO ×2 (09:47→22:42)
[2023-06-17] MEDS: DOCUSATE SODIUM 100 MG CAPSULE PO ×3 (09:50→22:42)
[2023-06-17] MEDS: GABAPENTIN 400 MG CAPSULE 800 MG PO ×3 (09:50→22:42)
[2023-06-17] MEDS: HYOSCYAMINE SULFATE 0.125 MG TAB.SUBL PO ×3 (09:50→22:41)
[2023-06-17] MEDS: PRIMIDONE 50 MG TABLET PO ×3 (09:51→22:40)
[2023-06-17] MEDS: TIZANIDINE HCL 4 MG TABLET 2 MG PO ×3 (09:51→22:41)
--- NOTE | 2023-06-17 10:14 | P.PN_ITS ---
Patient seen and examined, agree with assessment and plan. Improving with antibiotics and continue. Continue PT/OT for weakness. Insurance did not approve SNF and patient will go self pay. Awaiting medicaid waiver. Diagnosis: 1. Pneumonia 2. UTI 3. Acute hypoxic respiratory failure 4. Chest pain 5. DM2 6. HTN 7. CHF 8. Urinary retention Progress Note: Subjective Subjective Interval history: Date/time of exam: 06/17/23 The patient is resting in bed and continues to c/o sciatica pain. She was encouraged to get up with PT and walk as much as possible. She denies any CP, SOB, N/V/D, dizziness, or any other acute complaint. Pt was discharged yesterday to a LTC facility, but we were informed late in the day that Medicaid authorization was required before the LTC could take her. She remained in the hospital overnight. No acute events occurred overnight and she remains stable for discharge. Exam Constitutional Vital Signs, click to edit/add: Last Vital Signs Temp 98.2 F 06/17/23 06:00 Pulse 86 06/17/23 06:00 Resp 18 06/17/23 06:00 BP 142/78 H 06/17/23 09:38 Pulse Ox 92 L 06/17/23 06:00 O2 Del Method Room Air 06/17/23 06:00 O2 Flow Rate 1 06/13/23 05:26 Documenting provider has reviewed patient's vital signs: yes Common normals: no apparent distress, oriented x3, alert and well nourished Orientation/consciousness: Yes awake HENVA Common normals: normocephalic, head/scalp atraumatic, hearing grossly normal bilaterally, external ears normal, external nose normal and moist oral mucous membranes Eye Common normals: PERRL, EOMs intact bilaterally, conjunctivae normal and no scleral icterus General eye: normal appearance of both eyes Chest Common normals: inspection of chest normal Chest: symmetrical chest wall rise Respiratory Common normals: normal respiratory effort, no retractions, no use of accessory muscles and clear to auscultation bilaterally Effort & inspection: able to speak in complete sentences and symmetric chest movement Auscultation: diminished lung sounds (BLL) Cardio Common normals: no JVD, regular rate, regular rhythm, S1 normal heart sound, S2 normal heart sound, no gallops, no clicks, no murmurs, no rub and peripheral pulses 2+ throughout GI Common normals: Normal to inspection, nondistended, normoactive bowel sounds present, soft to palpation, non-tender, no hepatosplenomegaly, no masses and no bruits Bladder/kidney exam: bladder normal to palpation Extremity Common normals: normal to inspection, normal capillary refill, no calf tenderness and no pedal edema Neuro Gamaliel Coma Scale: GCS not evaluated Common normals: oriented x3, CN's II-XII intact bilaterally, moves all extremities, no focal motor deficits and no sensory deficits noted Psych Common normals: mental status grossly normal and affect normal Progress Note: A&P Assessment and Plan (1) Pneumonia: (2) Acute hypoxemic respiratory failure: (3) Atypical chest pain: (4) DM2 (diabetes mellitus, type 2): (5) Breast cancer: (6) Depression with anxiety: (7) Peripheral neuropathy: (8) Hypothyroidism: (9) Chronic GERD: (10) Gout: (11) Muscle spasm of back: (12) HTN (hypertension): (13) Essential tremor: (14) CHF (congestive heart failure): (15) Urinary retention: Plan Pt remains stable for discharge. No change in orders. D/C pending medicaid authorization of LTC transfer
--- NOTE | 2023-06-17 11:31 | CM.NOTE ---
Rounds made with Dr. Thorne pt will discharge long-term to [facility].
[2023-06-17] MEDS: CEFDINIR 300 MG CAPSULE PO ×2 (13:44→22:41)
[2023-06-17] MEDS: OMEPRAZOLE 40 MG CAPSULE.DR PO (13:44)
--- NOTE | 2023-06-17 13:56 | SWNOTE1 ---
SW has been in contact with Ashley ricardo, at [facility] all day. She has been working with medicaid. Pt is not able to be discharge to [facility] until they receive the approval, per the business investor at [facility].
[2023-06-17] MEDS: ACETAMINOPHEN 500 MG TABLET 1000 MG PO ×2 (15:14→22:43)
[2023-06-17] MEDS: ENOXAPARIN SODIUM 80 MG/0.8 ML SYRINGE SUBQ (15:14)
--- NOTE | 2023-06-17 16:02 | PC.NURSE ---
patient offered dinner. patient refused at this time. patient states they are not hungry at this time.
--- NOTE | 2023-06-17 16:14 | SWNOTE1 ---
Ashley at [facility] has still not heard back from medicaid. 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 SW left packet with nursing.
--- NOTE | 2023-06-17 17:15 | PC.NURSE ---
patient refused to order dinner at this time when offered
[2023-06-17] MEDS: INSULIN ASPART 300 UNIT/3 ML PEN SUBQ (22:38)
[2023-06-17] MEDS: SENNOSIDES/DOCUSATE SODIUM 1 TAB TABLET PO (22:40)
[2023-06-17] MEDS: ATORVASTATIN CALCIUM 40 MG TABLET PO (22:40)
[2023-06-17] MEDS: TRAZODONE HCL 150 MG TABLET PO (22:42)
[2023-06-18] VITALS (9 sets, daily range): BP systolic 131–160; BP diastolic 72–83; PULSE 86–96; RESP 16–20; TEMP 36.3–36.7; O2SAT 90–98
[2023-06-18] MEDS: IPRATROPIUM/ALBUTEROL SULFATE 3 ML AMPUL.NEB IH ×4 (04:14→22:26)
[2023-06-18] MEDS: OMEPRAZOLE 40 MG CAPSULE.DR PO (05:44)
[2023-06-18] MEDS: LEVOTHYROXINE SODIUM 100 MCG TABLET 200 MCG PO (05:44)
[2023-06-18] MEDS: POTASSIUM CHLORIDE 10 MEQ ER TABLET 20 MEQ PO (09:16)
[2023-06-18] MEDS: PRIMIDONE 50 MG TABLET PO ×3 (09:16→20:20)
[2023-06-18] MEDS: CEFDINIR 300 MG CAPSULE PO ×2 (09:16→20:19)
[2023-06-18] MEDS: PIOGLITAZONE 15 MG TABLET 30 MG PO (09:16)
[2023-06-18] MEDS: AMLODIPINE BESYLATE 5 MG TABLET PO (09:16)
[2023-06-18] MEDS: LIOTHYRONINE SODIUM 5 MCG TABLET PO (09:16)
[2023-06-18] MEDS: MECLIZINE HCL 12.5 MG TABLET 25 MG PO ×2 (09:16→20:20)
[2023-06-18] MEDS: DOCUSATE SODIUM 100 MG CAPSULE PO ×3 (09:16→20:19)
[2023-06-18] MEDS: HYOSCYAMINE SULFATE 0.125 MG TAB.SUBL PO ×3 (09:16→20:19)
[2023-06-18] MEDS: ALLOPURINOL 300 MG TABLET PO (09:16)
[2023-06-18] MEDS: TIZANIDINE HCL 4 MG TABLET 2 MG PO ×3 (09:17→20:20)
[2023-06-18] MEDS: CITALOPRAM HYDROBROMIDE 20 MG TABLET PO (09:17)
[2023-06-18] MEDS: GABAPENTIN 400 MG CAPSULE 800 MG PO ×3 (09:17→20:19)
[2023-06-18] MEDS: BUPROPION HCL 150 MG XL TABLET 24H 300 MG PO (09:17)
[2023-06-18] MEDS: ACETAMINOPHEN 500 MG TABLET 1000 MG PO ×2 (09:17→16:08)
[2023-06-18] MEDS: FUROSEMIDE 40 MG TABLET PO (09:17)
[2023-06-18] MEDS: INSULIN DETEMIR 300 UNIT/3 ML INSULN.PEN 20 UNIT SUBQ ×2 (09:19→21:27)
--- NOTE | 2023-06-18 10:47 | PT.DAILY ---
Physical Therapy Daily Note PT Daily Note/Assess Start: 06/14/23 10:22 Freq: Status: Active Protocol: Document 06/18/23 10:45 MOSHE (Rec: 06/18/23 10:47 MOSHE [id number]) Physical Therapy Daily Note/Assessment Time In/Time Out Time In 09:25 Time Out 09:35 Pain In Pain N/A Pain Out Pain N/A Subjective Subjective pt supine upon arrival. Agrees to PT. Denies sciatic pain at this time. Therapeutic Exercise Time Therapeutic Exercise Minutes (minutes) 4 Therapeutic Exercise Units 0 Therapeutic Exercise Treatment Therapeutic Exercise Treatment supine AP, QS, and heel slides 10x. seated LAQ, marches and add squeezes 10x ea at EOB. Therapeutic Activity Time Therapeutic Activity Minutes (minutes) 5 Therapeutic Activity Units 1 Therapeutic Activity Treatment Bed Mobility Ability Minimum Assist Chair Transfer Ability Standby Assistance Therapeutic Activity Comments Supine>sit EOB with Madhavi to advance upper body. Able to sit EOB 2 min to performs seated ex without LOB. Sit> stand to RW SBA. Pt amb 80' in room then remains in BS chair upon completion with call light in reach and needs met. Total Physical Therapy Time Total Therapy Minutes 9 Total Physical Therapy Units 1 Summary Daily Note Summary Denies change in pain. Improving bed mobility.
[2023-06-18] MEDS: INSULIN ASPART 300 UNIT/3 ML PEN SUBQ ×2 (12:13→21:27)
--- NOTE | 2023-06-18 15:37 | PM.IMPN1 ---
Progress Note: A&P Assessment and Plan (1) Pneumonia: Assessment and Plan: s/p 7 days course of abx therapy. Last day today No resp symptoms. Comfortable. Doing well. On RA (2) Acute hypoxemic respiratory failure: Assessment and Plan: On RA now. DOing well. (3) Atypical chest pain: Assessment and Plan: Likely due to PNA. Resolved (4) DM2 (diabetes mellitus, type 2): Assessment and Plan: /w home meds. Monitor (5) Depression with anxiety: Assessment and Plan: stable. c/w home meds (6) Peripheral neuropathy: Assessment and Plan: c/w gabapentin (7) Hypothyroidism: Assessment and Plan: c/w levothyroxine (8) Chronic GERD: Assessment and Plan: on protonix. (9) HTN (hypertension): Assessment and Plan: stable. c/w home meds. Internal Medicine - PN: Subj Subjective Interval history: Seen and examined. No events. Patient awaiting approval from insurance. Can d/c once it goes through. Exam Constitutional Vital Signs, click to edit/add: Last Vital Signs Temp 98.1 F 06/18/23 14:46 Pulse 86 06/18/23 14:46 Resp 16 06/18/23 14:46 BP 131/83 06/18/23 14:46 Pulse Ox 95 06/18/23 14:46 O2 Del Method Room Air 06/18/23 14:46 O2 Flow Rate 1 06/13/23 05:26 Documenting provider has reviewed patient's vital signs: yes Common normals: no apparent distress and oriented x3 General appearance: cooperative Respiratory Common normals: normal respiratory effort and clear to auscultation bilaterally Effort & inspection: able to speak in complete sentences Auscultation: clear to auscultation bilaterally Cardio Common normals: regular rate, S1 normal heart sound and S2 normal heart sound Rate: regular rate Heart sounds: S1 normal and S2 normal Extremity Common normals: no clubbing, cyanosis or edema Neuro Common normals: oriented x3 and moves all extremities Urinary Catheter Management Urinary Catheter Management Urethral: Cath placed during this visit: no
[2023-06-18] MEDS: ATORVASTATIN CALCIUM 40 MG TABLET PO (21:26)
[2023-06-18] MEDS: TRAZODONE HCL 150 MG TABLET PO (21:26)
[2023-06-18] MEDS: SENNOSIDES/DOCUSATE SODIUM 1 TAB TABLET PO (21:26)
[2023-06-19] VITALS (10 sets, daily range): BP systolic 132–174; BP diastolic 75–86; PULSE 84–111; RESP 18–20; TEMP 36.5–36.6; O2SAT 90–96
[2023-06-19] MEDS: IPRATROPIUM/ALBUTEROL SULFATE 3 ML AMPUL.NEB IH ×4 (04:23→22:45)
[2023-06-19] MEDS: OMEPRAZOLE 40 MG CAPSULE.DR PO (05:51)
[2023-06-19] MEDS: LEVOTHYROXINE SODIUM 100 MCG TABLET 200 MCG PO (05:51)
[2023-06-19] MEDS: HYDROCODONE/ACET 10-325 MG TABLET 1 TAB PO (05:53)
[2023-06-19] MEDS: GABAPENTIN 400 MG CAPSULE 800 MG PO ×3 (09:26→20:19)
[2023-06-19] MEDS: AMLODIPINE BESYLATE 5 MG TABLET PO (09:26)
[2023-06-19] MEDS: ACETAMINOPHEN 500 MG TABLET 1000 MG PO ×3 (09:27→20:19)
[2023-06-19] MEDS: CITALOPRAM HYDROBROMIDE 20 MG TABLET PO (09:27)
[2023-06-19] MEDS: DOCUSATE SODIUM 100 MG CAPSULE PO ×3 (09:27→20:19)
[2023-06-19] MEDS: LIOTHYRONINE SODIUM 5 MCG TABLET PO (09:27)
[2023-06-19] MEDS: PRIMIDONE 50 MG TABLET PO ×3 (09:27→20:19)
[2023-06-19] MEDS: FUROSEMIDE 40 MG TABLET PO (09:27)
[2023-06-19] MEDS: MECLIZINE HCL 12.5 MG TABLET 25 MG PO ×2 (09:27→20:18)
[2023-06-19] MEDS: INSULIN DETEMIR 300 UNIT/3 ML INSULN.PEN 20 UNIT SUBQ ×2 (09:27→20:22)
[2023-06-19] MEDS: ALLOPURINOL 300 MG TABLET PO (09:27)
[2023-06-19] MEDS: POTASSIUM CHLORIDE 10 MEQ ER TABLET 20 MEQ PO (09:27)
[2023-06-19] MEDS: BUPROPION HCL 150 MG XL TABLET 24H 300 MG PO (09:27)
[2023-06-19] MEDS: TIZANIDINE HCL 4 MG TABLET 2 MG PO ×3 (09:27→20:18)
[2023-06-19] MEDS: CEFDINIR 300 MG CAPSULE PO (09:27)
[2023-06-19] MEDS: PIOGLITAZONE 15 MG TABLET 30 MG PO (09:27)
[2023-06-19] MEDS: HYOSCYAMINE SULFATE 0.125 MG TAB.SUBL PO ×3 (09:28→20:19)
--- NOTE | 2023-06-19 13:35 | P.IMPN_ITS ---
Progress Note: A&P Assessment and Plan (1) Pneumonia: Assessment and Plan: s/p 7 days course of abx therapy. No resp symptoms. Comfortable. Doing well. On RA (2) Acute hypoxemic respiratory failure: Assessment and Plan: On RA now. DOing well. (3) Atypical chest pain: Assessment and Plan: Likely due to PNA. Resolved (4) DM2 (diabetes mellitus, type 2): Assessment and Plan: c/w home meds. Monitor (5) Depression with anxiety: Assessment and Plan: stable. c/w home meds (6) Peripheral neuropathy: Assessment and Plan: c/w gabapentin (7) Hypothyroidism: Assessment and Plan: c/w levothyroxine (8) Chronic GERD: Assessment and Plan: on protonix. (9) HTN (hypertension): Assessment and Plan: stable. c/w home meds. Internal Medicine - PN: Subj Subjective Interval history: Seen and examined. No events. Patient awaiting approval from insurance. Can d/c once it goes through. [place] comfortable and had no complaints to offer. Exam Constitutional Vital Signs, click to edit/add: Last Vital Signs Temp 97.7 F 06/19/23 05:22 Pulse 111 H 06/19/23 05:22 Resp 20 06/19/23 05:22 BP 155/86 H 06/19/23 05:48 Pulse Ox 93 L 06/19/23 10:26 O2 Del Method Room Air 06/19/23 10:26 O2 Flow Rate 1 06/13/23 05:26 Documenting provider has reviewed patient's vital signs: yes Common normals: no apparent distress and oriented x3 General appearance: cooperative Respiratory Common normals: normal respiratory effort and clear to auscultation bilaterally Effort & inspection: able to speak in complete sentences Auscultation: clear to auscultation bilaterally Cardio Common normals: regular rate, S1 normal heart sound and S2 normal heart sound Rate: regular rate Heart sounds: S1 normal and S2 normal Urinary Catheter Management Urinary Catheter Management Urethral: Cath placed during this visit: yes Urethral indwelling: Yes Reason for continuing: urinary obstruction Insertion date: 06/19/23 Insertion time: 06:45
[2023-06-19] MEDS: SENNOSIDES/DOCUSATE SODIUM 1 TAB TABLET PO (20:18)
[2023-06-19] MEDS: ATORVASTATIN CALCIUM 40 MG TABLET PO (20:19)
[2023-06-19] MEDS: INSULIN ASPART 300 UNIT/3 ML PEN SUBQ (20:21)
[2023-06-19] MEDS: TRAZODONE HCL 150 MG TABLET PO (21:02)
[2023-06-20 03:24] VITALS: BP 132/76; PULSE 67; RESP 18; TEMP 36.6; O2SAT 93
[2023-06-20] MEDS: OMEPRAZOLE 40 MG CAPSULE.DR PO (04:23)
[2023-06-20] MEDS: LEVOTHYROXINE SODIUM 100 MCG TABLET 200 MCG PO (04:24)
[2023-06-20 05:01] VITALS: PULSE 82; RESP 18; O2SAT 91
[2023-06-20] MEDS: IPRATROPIUM/ALBUTEROL SULFATE 3 ML AMPUL.NEB IH ×2 (05:01→11:19)
[2023-06-20 05:11] VITALS: PULSE 81; RESP 20; O2SAT 96
[2023-06-20 07:00] VITALS: BP 137/74; PULSE 85; RESP 18; TEMP 36.5; O2SAT 92
[2023-06-20] MEDS: INSULIN ASPART 300 UNIT/3 ML PEN SUBQ ×2 (08:51→13:25)
[2023-06-20] MEDS: INSULIN DETEMIR 300 UNIT/3 ML INSULN.PEN 20 UNIT SUBQ (08:53)
--- NOTE | 2023-06-20 09:58 | CM.NOTE ---
Called and spoke to Ashley at [facility] for update on senior living care bed. Ashley will call this morning to see if pt has been approved. Update given to pt.
[2023-06-20] MEDS: HYDROCODONE/ACET 10-325 MG TABLET 1 TAB PO (10:04)
[2023-06-20] MEDS: GABAPENTIN 400 MG CAPSULE 800 MG PO ×2 (10:04→16:30)
[2023-06-20] MEDS: CITALOPRAM HYDROBROMIDE 20 MG TABLET PO (10:04)
[2023-06-20] MEDS: PIOGLITAZONE 15 MG TABLET 30 MG PO (10:04)
[2023-06-20] MEDS: FUROSEMIDE 40 MG TABLET PO (10:05)
[2023-06-20] MEDS: BUPROPION HCL 150 MG XL TABLET 24H 300 MG PO (10:05)
[2023-06-20] MEDS: ALLOPURINOL 300 MG TABLET PO (10:05)
[2023-06-20] MEDS: MECLIZINE HCL 12.5 MG TABLET 25 MG PO (10:05)
[2023-06-20] MEDS: LIOTHYRONINE SODIUM 5 MCG TABLET PO (10:05)
[2023-06-20] MEDS: AMLODIPINE BESYLATE 5 MG TABLET PO (10:06)
[2023-06-20] MEDS: POTASSIUM CHLORIDE 10 MEQ ER TABLET 20 MEQ PO (10:06)
[2023-06-20] MEDS: ACETAMINOPHEN 500 MG TABLET 1000 MG PO ×2 (10:23→16:30)
[2023-06-20] MEDS: DOCUSATE SODIUM 100 MG CAPSULE PO ×2 (10:24→16:30)
[2023-06-20] MEDS: PRIMIDONE 50 MG TABLET PO ×2 (10:24→16:30)
[2023-06-20] MEDS: TIZANIDINE HCL 4 MG TABLET 2 MG PO ×2 (10:24→16:33)
[2023-06-20] MEDS: HYOSCYAMINE SULFATE 0.125 MG TAB.SUBL PO ×2 (10:25→16:30)
--- NOTE | 2023-06-20 10:51 | PM.IMPN1 ---
Progress Note: A&P Assessment and Plan (1) Pneumonia: Assessment and Plan: s/p 7 days course of abx therapy. No resp symptoms. Comfortable. Doing well. On RA (2) Acute hypoxemic respiratory failure: Assessment and Plan: On RA now. DOing well. (3) Atypical chest pain: Assessment and Plan: Likely due to PNA. Resolved (4) DM2 (diabetes mellitus, type 2): Assessment and Plan: c/w home meds. Monitor (5) Depression with anxiety: Assessment and Plan: stable. c/w home meds (6) Peripheral neuropathy: Assessment and Plan: c/w gabapentin (7) Hypothyroidism: Assessment and Plan: c/w levothyroxine (8) Chronic GERD: Assessment and Plan: on protonix. (9) HTN (hypertension): Assessment and Plan: stable. c/w home meds. Internal Medicine - PN: Subj Subjective Interval history: Seen and examined. No events. Patient awaiting approval from insurance. C. Exam Constitutional Vital Signs, click to edit/add: Last Vital Signs Temp 97.7 F 06/20/23 07:00 Pulse 85 06/20/23 07:00 Resp 18 06/20/23 07:00 BP 137/74 06/20/23 07:00 Pulse Ox 92 L 06/20/23 07:00 O2 Del Method Room Air 06/20/23 07:00 O2 Flow Rate 1 06/13/23 05:26 Documenting provider has reviewed patient's vital signs: yes Common normals: no apparent distress and oriented x3 General appearance: cooperative Respiratory Common normals: normal respiratory effort and clear to auscultation bilaterally Effort & inspection: able to speak in complete sentences Auscultation: clear to auscultation bilaterally Cardio Common normals: regular rate, S1 normal heart sound and S2 normal heart sound Rate: regular rate Heart sounds: S1 normal and S2 normal Urinary Catheter Management Urinary Catheter Management Urethral: Cath placed during this visit: yes Urethral indwelling: Yes Reason for continuing: urinary obstruction Insertion date: 06/19/23 Insertion time: 06:45
--- NOTE | 2023-06-20 11:11 | PT.DAILY ---
Physical Therapy Daily Note PT Daily Note/Assess Start: 06/14/23 10:22 Freq: Status: Active Protocol: Document 06/20/23 11:05 CLARITAEVELIAYARON (Rec: 06/20/23 11:11 MOSHE [id number]) Physical Therapy Daily Note/Assessment Time In/Time Out Time In 10:45 Time Out 11:00 Pain In Pain N/A Pain Out Pain N/A Subjective Subjective Supine upon arrival. reports sciatic pain this morning. Was medicated but not much relief . Agrees to PT. Therapeutic Exercise Time Therapeutic Exercise Minutes (minutes) 3 Therapeutic Exercise Units 0 Therapeutic Exercise Treatment Therapeutic Exercise Treatment Completes seated LE strengthening/ROM ex while sitting unsupported at EOB 10x ea. Therapeutic Activity Time Therapeutic Activity Minutes (minutes) 10 Therapeutic Activity Units 1 Therapeutic Activity Treatment Bed Mobility Ability Minimum Assist Chair Transfer Ability Standby Assistance Therapeutic Activity Comments Supine>sit Madhavi to advance upper body to sit EOB. Sits EOB unsupported for 3 min while completing LE strengthening ex. Sit>stand to RW SBA with increased time needed. Amb 80' with RW, SBA with 1x standing rest break due to pain. Returned to room. Madhavi to advance LEs into bed. Remains supine with call light in reach and needs met. Total Physical Therapy Time Total Therapy Minutes 13 Total Physical Therapy Units 1 Summary Daily Note Summary Pain limits gait ability/ distance today. Transfers improving - needing Madhavi vs ModA previous visit. Planned to go [facility] care facility at discharge. Poc or goals will need updated if pt is still in our facility tomorrow .
--- NOTE | 2023-06-20 11:15 | PT.DAILY ---
Physical Therapy Daily Note PT Daily Note/Assess Start: 06/14/23 10:22 Freq: Status: Active Protocol: Document 06/20/23 11:05 CLARITAEVELIAYARON (Rec: 06/20/23 11:11 MOSHE [id number]) Physical Therapy Daily Note/Assessment Time In/Time Out Time In 10:45 Time Out 11:00 Pain In Pain N/A Pain Out Pain N/A Subjective Subjective Supine upon arrival. reports sciatic pain this morning. Was medicated but not much relief . Agrees to PT. Therapeutic Exercise Time Therapeutic Exercise Minutes (minutes) 3 Therapeutic Exercise Units 0 Therapeutic Exercise Treatment Therapeutic Exercise Treatment Completes seated LE strengthening/ROM ex while sitting unsupported at EOB 10x ea. Therapeutic Activity Time Therapeutic Activity Minutes (minutes) 10 Therapeutic Activity Units 1 Therapeutic Activity Treatment Bed Mobility Ability Minimum Assist Chair Transfer Ability Standby Assistance Therapeutic Activity Comments Supine>sit Madhavi to advance upper body to sit EOB. Sits EOB unsupported for 3 min while completing LE strengthening ex. Sit>stand to RW SBA with increased time needed. Amb 80' with RW, SBA with 1x standing rest break due to pain. Returned to room. Madhavi to advance LEs into bed. Remains supine with call light in reach and needs met. Total Physical Therapy Time Total Therapy Minutes 13 Total Physical Therapy Units 1 Summary Daily Note Summary Pain limits gait ability/ distance today. Transfers improving - needing Madhavi vs ModA previous visit. Planned to go [facility] facility at discharge. Poc or goals will need updated if pt is still in our facility tomorrow .
[2023-06-20 11:20] VITALS: O2SAT 96
--- NOTE | 2023-06-20 11:38 | CM.NOTE ---
Spoke with Kerline at [facility] to request an update on the delay with approval for the patient to go to [facility]. Kerline stated she would escalate this to her business office that she was told she could not take this patient until she had an official approval. I gave my contact information to have someone from their business office call me that we have no clinical reason for this patient to continue to be here and we will have difficulty getting approval from her insurance for the last 3 days. Kerline voiced understanding and ensured me she would escalate my concern. Kerline also stated that the patient's family had already brought her belongings there and everything is ready for her arrival.
--- NOTE | 2023-06-20 11:46 | CM.NOTE ---
Rounds made with Dr. Alas. Awaiting approval to be discharged to [facility]. Discharge when approval received.
[2023-06-20 13:41] VITALS: BP 133/75; PULSE 86; RESP 18; TEMP 36.6; O2SAT 92
--- NOTE | 2023-06-20 14:46 | CM.NOTE ---
[facility] called and are ready for [facility], pt has been approved. [place] [facility] on Med-surg setting up transport. Updated pt about transfer to [facility] today, also messaged Dr. Alas.
--- NOTE | 2023-06-20 15:22 | P.DS_ITS ---
DS: Providers Provider Date of admission: 06/11/23 11:46 Primary care physician: Raghav Thorne MD Consults: 06/11/23 11:46 Consult to Security Orderly Routine Reason for consult:: Residential 06/12/23 12:31 Physical Therapy Eval and Treat Routine Reason for consultation: placement Has provider been notified: No 06/13/23 09:26 Occupational Therapy Eval and Treat Routine Reason for consultation: Generalized weakness, SNF placement DS: Diagnosis Discharge Diagnosis (1) Pneumonia: Assessment and plan: s/p treatment. (2) Acute hypoxemic respiratory failure: Assessment and plan: On RA now. (3) Atypical chest pain: Assessment and plan: Resolved. (4) DM2 (diabetes mellitus, type 2): Assessment and plan: Defer to PCP (5) Depression with anxiety: Assessment and plan: cw home meds (6) Peripheral neuropathy: Assessment and plan: C/w gabapentin (7) Hypothyroidism: Assessment and plan: C/w levothyroxine (8) Chronic GERD: Assessment and plan: Stable (9) HTN (hypertension): Assessment and plan: Stable. No changes made DS: Summary Hospital Course Hospital Course: The patient was admitted with atypical chest pain and associated shortness of breath. Her chest discomfort was pleuritic in nature and ACS was not clinically suspected. Serial cardiac enzymes remained negative and no evidence of acute ischemia on EKGs. Her chest discomfort completely resolved. There was some clinical suspicion for PE and a CTA of the chest was obtained which was negative for PE. The CTA did note bilateral infiltrates and the patient was initiated on IV antibiotics. She was initially on O2 supplementation but this was weaned off successfully. 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 We recommend further PT strengthening if available. She should follow up with her PCP within one week. She should also follow up with Dr Sanchez, urologist, [facility] as she still has an indwelling wilson catheter placed during an earlier admission for urinary retention and a follow up appointment has not yet been made. She is discharged in stable condition with a prescript for two more days of cefdinir to complete a 7 day course of treatment for pneumo mackenzie. Status at Discharge Overall status at discharge: patient is back to baseline Time Spent with Patient Time attestation: Total time spent providing and/or coordinating discharge services: Time spent: greater than 30 minutes Exam Constitutional Vital Signs, click to edit/add: Last Vital Signs Temp 98 F 06/20/23 13:41 Pulse 86 06/20/23 13:41 Resp 18 06/20/23 13:41 BP 133/75 06/20/23 13:41 Pulse Ox 92 L 06/20/23 13:41 O2 Del Method Room Air 06/20/23 13:41 O2 Flow Rate 1 06/13/23 05:26 Documenting provider has reviewed patient's vital signs: yes Common normals: no apparent distress and oriented x3 General appearance: cooperative Respiratory Common normals: normal respiratory effort and clear to auscultation bilaterally Effort & inspection: able to speak in complete sentences Auscultation: clear to auscultation bilaterally Cardio Common normals: regular rate, S1 normal heart sound and S2 normal heart sound Rate: regular rate Heart sounds: S1 normal and S2 normal Discharge Plan Discharge Disposition: er LTC Condition: Fair Discharge Medications: New cefdinir 300 mg capsule 300 mg PO BID 2 Days Qty: 4 0RF hydrocodone-acetaminophen 10-325 mg tablet 1 tab PO QID PRN (Reason: pain) Qty: 20 0RF Continued nitrofurantoin monohyd/m-cryst 100 mg capsule 100 mg PO Q12H levothyroxine 200 mcg tablet 200 mcg PO DAILY meclizine 25 mg tablet 25 mg PO BID furosemide 40 mg tablet 40 mg PO DAILY letrozole 2.5 mg tablet 2.5 mg PO Q24H tizanidine 4 mg tablet 2 mg PO Q8H citalopram 20 mg tablet 20 mg PO DAILY bupropion HCl 300 mg tablet extended release 24 hr 300 mg PO DAILY amlodipine 5 mg tablet 5 mg PO DAILY pioglitazone 30 mg tablet 30 mg PO DAILY pantoprazole 40 mg tablet,delayed release (DR/EC) 40 mg PO DAILY potassium chloride 20 mEq tablet extended release 20 meq PO DAILY allopurinol 300 mg tablet 300 mg PO DAILY primidone 50 mg tablet 50 mg PO Q8H gabapentin 400 mg capsule 800 mg PO TID liothyronine 5 mcg tablet 5 mcg PO DAILY docusate sodium [Colace] 100 mg capsule 100 mg PO TID cholecalciferol (vitamin D3) 50 mcg (2,000 unit) capsule 2,000 unit PO DAILY acetaminophen [Aphen] 325 mg tablet 1,000 mg PO TID hyoscyamine sulfate 0.125 mg tablet,disintegrating 0.125 mg PO Q8H atorvastatin 40 mg tablet 40 mg PO DAILY senna 187 mg tablet 50 mg PO DAILY alendronate 70 mg tablet 70 mg PO .TUESDAY Ozempic 1 mg/dose (2 mg/1.5 mL) pen injector 0.5 mg subcut QWEEK insulin lispro 100 unit/mL insulin pen 1 sliding scale dose SUBCUT ACHS insulin glargine [Lantus U-100 Insulin] 100 unit/mL solution 19 unit subcut DAILY trazodone 150 mg tablet 100 mg PO BEDTIME hydrocodone-acetaminophen 10-325 mg tablet 1 tab PO Q6H PRN (Reason: pain) Discontinued levofloxacin 750 mg tablet 750 mg PO Q24H Activity Restrictions/Additional Instructions: - SNF to make follow up appt with Dr Sanchez, Urologist, [facility] to assess for void trial/Wilson discontinuation - Consider PT for strengthening Forms: Portal Instructions Follow Up Appointments: - Dr Thorne, PCP, within 1 week - Dr Sanchez, Urologist, [facility] to assess for void trial/Wilson discontinuation
--- NOTE | 2023-06-20 15:40 | CM.NOTE ---
Called to set up [facility] for transport, RN notified and will call her family. Faxed SNF and discharge paper to [facility].
--- NOTE | 2023-06-20 15:45 | PC.NURSE ---
called report to [facility] at this time
== END 2023-06-20 17:10 | DRG 193 ==
LOC: ER 13:35 → MS 14:37
PROVIDERS: Family Medicine; Admitting Provider Internal Medicine; Emergency Provider Emergency Medicine; PCP Family Medicine; Visit Provider Nurse Practitioner
DX: J18.9 Pneumonia, unspecified organism (principal); J96.01 Acute respiratory failure with hypoxia; E87.1 Hypo-osmolality and hyponatremia; G81.94 Hemiplegia, unspecified affecting left nondominant side; N39.0 Urinary tract infection, site not specified; Z68.44 Body mass index [BMI] 60.0-69.9, adult; R07.89 Other chest pain; E11.42 Type 2 diabetes mellitus with diabetic polyneuropathy; F41.9 Anxiety disorder, unspecified; F32.A Depression, unspecified; E03.9 Hypothyroidism, unspecified; K21.9 Gastro-esophageal reflux disease without esophagitis; E66.01 Morbid (severe) obesity due to excess calories; I11.0 Hypertensive heart disease with heart failure; I50.9 Heart failure, unspecified; R00.0 Tachycardia, unspecified; C50.919 Malignant neoplasm of unspecified site of unspecified female breast; R33.9 Retention of urine, unspecified; M62.830 Muscle spasm of back; G25.0 Essential tremor; M10.9 Gout, unspecified; I25.2 Old myocardial infarction; Z86.73 Personal history of transient ischemic attack (TIA), and cerebral infarction without residual deficits; Z79.83 Long term (current) use of bisphosphonates; Z79.890 Hormone replacement therapy; Z79.4 Long term (current) use of insulin; Z79.85 Long-term (current) use of injectable non-insulin antidiabetic drugs; Z79.899 Other long term (current) drug therapy
CPT/HCPCS: 0202U; 36415; 51702; 71045; 71275; 80053; 81001; 82550; 82553; 82948; 83036; 83874; 83880; 84484; 85025; 85378; 86850; 86900; 86901; 87070; 87086; 87205; 87635; 87811; 93005; 93306; 94640; 94667; 94668; 94761; 96365; 96366; 96367; 96368; 96372; 96375; 96376; 97162; 97165; 97530; 97535; 99285; G0328; G0378; J1100; J2930; Q9967

== ENCOUNTER 2023-07-01 11:35 | Outpatient (REF) | payer MEDICARE, MEDICAID, SELFPAY ==
[2023-07-01 15:39] LABS: Magnesium 1.7 mg/dL (1.8-2.4); Phosphorus 4.4 mg/dL (2.6-4.7)
== END 2023-07-01 11:36 | disposition home or self-care (01) ==
LOC: LAB 11:35
PROVIDERS: PCP Family Medicine
DX: E83.42 Hypomagnesemia (principal)
CPT/HCPCS: 36415; 83735; 84100

== ENCOUNTER 2024-04-21 10:43 | Outpatient (REF) | payer MEDICARE, MEDICAID, SELFPAY ==
--- OUTSIDE RECORDS SUMMARY | 2024-04-21 10:48 | XMS_ITS | CCD ---
Author Organization [facility] ion [facility] Care Team Providers Care Mail Service Coordinator Name Role Phone Kalyan Hutton Unavailable Unavailable Kalyan Hutton Unavailable Unavailable RAGHAV JFEFRIES Unavailable Unavailable ArnoldoRomi Unavailable Unavailable ArnoldoRomi malave Unavailable Unavailable RAGHAV JEFFRIES Unavailable Unavailable MEENAERERAGHAV Bonilla Unavailable Unavailable Romi Mclaughlin Attending Unavailable Garrison Acosta Unavailable [phone] Kalyan Kingsley Unavailable Reji Flanagan Unavailable MD Raghav Jeffries Primary Care Provider DO Reji Flanagan Attending Provider MD Raghav Jeffries Primary Care Provider [phone] DO Reji Flanagan Attending Provider [phone] HUA RICARDO Admitting Unavailable NADEREChad, DR RAGHAV Metcalf Primary Care Unavailable HUA RICARDO Attending Unavailable HUA RICARDO Consulting Unavailable NADEREChad, DR RAGHAV Metcalf Admitting Unavailable NADERER, DR RAGHAV Metcalf Attending Unavailable NADERER, DR RAGHAV Metcalf Consulting Unavailable NADERER, DR RAGHAV Metcalf Primary Care Unavailable NADERER, DR RAGHAV Metcalf Attending Unavailable NADERER, DR RAGHAV Metcalf Consulting Unavailable NADEREChad, DR RAGHAV Metcalf Primary Care Unavailable NADERER, DR RAGHAV Metcalf Admitting Unavailable NADERER, DR RAGHAV Metcalf Primary Care Unavailable HUA RICARDO Attending Unavailable HUA RICARDO Admitting Unavailable NADERER, DR RAGHAV Metcalf Admitting Unavailable NADERER, DR RAGHAV Metcalf Primary Care Unavailable NADERER, DR RAGHAV Metcalf Attending Unavailable NADERER, DR RAGHAV Metcalf Consulting Unavailable PEDRO PUENTE Admitting Unavailable WEST, DR BERTRAM Gonzalez Consulting Unavailable NADERER, DR RAGHAV Metcalf Primary Care Unavailable PEDRO PUENTE Attending Unavailable PEDRO PUENTE Consulting Unavailable TY, SPRING Admitting Unavailable TY, SPRING Attending Unavailable NADERER, DR RAGHAV Metcalf Primary Care Unavailable TY, SPRING Attending Unavailable TY, SPRING Consulting Unavailable TY, SPRING Admitting Unavailable NADERER, DR RAGHAV Metcalf Primary Care Unavailable CATHIE MODI Consulting Unavailable JIMMY MYERS Consulting Unavailable MD Raghav Jeffries Primary Care Provider DO Reji Flanagan Attending Provider [phone] MYRA Walton Attending Provider [phone] Mino, Imad Unavailable MD Shelby Herzog Attending Provider [phone] MD Raghav Jeffries Primary Care Provider Asarodo, Imad Attending Unavailable Asarodo, Imad Admitting Unavailable Raghav Jeffries Primary Care Unavailable Elle Walton Attending Unavailable Nakia Waltonson Admitting Unavailable RAGHAV JEFFRIES Primary Care Physician Freddy CARR Attending Unavailable MARTY LORENZO Referring Unav ailable NADERERRAGHAV Primary Care Unavailable Raghav Jeffries MD Primary Care Provider SWAPNA JAMES Attending Unavailable RAGHAV JEFFRIES Primary Care Unavailabl e ELATTAR, OSAMA Referring Unavailable ELATTAR, OSAMA Referring Unavailable ELATTAR, OSAMA Attending Unavailable ELATTAR, OSAMA Attending Unavailable ELATTAR, OSAMA Referring Unavailable ELATTAR, OSAMA Referring Unavailable NADERERAGHAV Bonilla Primary Care Unavailable RAGHAV JEFFRIES Primary Care Unavailable MARTY LORENZO Attending Unav ailable MARTY LORENZO Referring Unav ailable NADERERRAGHAV Primary Care Unavailable MARTY LORENZO Attending Unav ailable MARTY LORENZO Referring Unav ailable NADERER, RAGHAV Primary Care Unavailable MARTY LORENZO Attending Unav ailable MAURAMARTY MARTINEZ Referring Unav ailable NADERERRAGHAV Primary Care Unavailable MARTY LORENZO Attending Unav MARTY Barahona Referring Unav ailable RAGHAV JEFFRIES Primary Care Unavailable OLAMIDE SMITH Attending Unavailable OLAMIDE SMITH Referring Unavailable RAGHAV JEFFRIES Primary Care Unavailable Allergies Allergy Classification Reported Allergen(s) Allergy Type Date of Onset Reaction(s) Facility egg extract (1 source) egg extract Drug Allergy 2 Unknown [facility] (1 source) banana extract; Translations: [Banana] Drug Allergy [facility] Repository (1 source) Chocolate; Translations: [Chocolate] Propensity to adverse reactions to food (disorder) [facility] Repository (1 source) Egg; Translations: [Egg Allergy] Propensity to adverse reactions to food (disorder) [facility] Repository (1 source) Oats; Translations: [Oats] Propensity to adverse reactions to food (disorder) [facility] Repository (6 sources) Shellfish; Translations: [shellfish] Propensity to adverse reactions to food (disorder) 6 Pharyngeal swelling (finding) [facility] Repository (1 source) [place]; Translations: [Strawberries] Propensity to adverse reactions to food (disorder) [facility] Repository (1 source) Tomatoes; Translations: [Tomatoes] Propensity to adverse reactions to food (disorder) [facility] Repository (1 source) Potatoes; Translations: [Potatoes] Propensity to adverse reactions to food (disorder) [facility] Repository (8 sources) Egg protein Drug allergy Unknown [facility] Other (8 sources) Glucosamine Drug Allergy Unknown [facility] Other (10 sources) egg extract; Translations: [Egg] Drug Allergy 6 Vomiting, headache [facility] (8 sources) Shellfish; Translations: [shellfish derived] Allergy to substance 1 Difficulty Breathing [facility] (2 sources) Misc-Food; Translations: [Misc-Food] Food allergy (disorder) 6 [facility] Repository (1 source) Egg Drug allergy Unknown [place] Other (2 sources) Shellfish Drug allergy 1 Unknown [facility] Other (1 source) Eggs or Egg-derived Products Drug allergy Unknown [facility] Other (2 sources) Egg; Translations: [Eggs] Food allergy unknown [facility] (2 sources) SHELLFISH CONTAINING PRODUCTS; Translations: [SHELLFISH CONTAINING PRODUCTS] Propensity to adverse reactions to food (disorder) 1 [facility] 3 Repository (1 source) ALLERGIES NOT ON FILE; Translations: [ALLERGIES NOT ON FILE] Propensity to adverse reactions (disorder) [facility] Repository Medications Current Medications Medication Drug Class(es) Dates Sig (Normalized) Sig (Original) acetaminophen 500 mg oral capsule (2 sources) Start: 05-06-2023 take 2 capsules by mouth three times daily Acetaminophen (Tylenol Extra Strength) 500 mg Capsule Active 1000 MG PO Three times daily May 06, 2023 12:00am Start: 05-29-2022 take 2 tablets by mo uth every six hours as needed acetaminophen (Tylenol) 325 mg tablet Take 2 tablets (650 mg) by mouth every 6 hours if needed. 05/29/2022 Active acetaminophen 325 mg / HYDROcodone bitartrate 10 mg oral tablet (20 sources) Opioid Agonist Start: 11-18-2023 HYDROcodone-ac etaminophen (Clare) 10-325 mg tablet 11/18/2023 Active Start: 04-13-2022 take 1 tablet by josephine th at bedtime Hydrocodone-Acetaminophen Active 1 TAB P O Bedtime April 13, 2022 12:00am Start: 04-13-2022 take 1 tablet by josephine th every six hours Hydrocodone-Acetaminophen Active 1 TAB P O Q6H April 12, 2022 11:00pm Start: 04-08-2021 take 1 tablet by josephine th every four hours for pain acetaminophen-hydrocodone 325 mg-10 mg oral tablet See Instructions, for pain, Refill(s) 0, 1 tab(s) Oral q4hr Start Date: 04/08/21 Status: Ordered Start: 09-26-2017 End: 10-23-2018 take 1 tablet by mouth every six hours Hydrocodone-Acetaminophen Discontinued 1 TAB PO Q6H September 26, 2017 1:00am October 23, 2018 12:58pm [id number] 200 actuat albuterol 0.09 mg/actuat metered dose inhaler (1 source) beta2-Adrenergic Agonist take 1 puff(s) by inhalation every four hours as needed Ventolin HFA 108 (90 Base) MCG/ACT 1 puff as needed Inhalation every 4 hrs Active Albuterol (Eqv-ProAir HFA) 90 mcg/inh inhalation aerosol (1 source) Start: 04-07-20 take 2 puff(s) by inhalation every four hours as needed for wheezing Albuterol (Eqv-ProAir HFA) 90 mcg/inh inhalation aerosol 2 puff(s), Inhalation, q4hr as needed for wheezing Start Date: 04/07/21 Status: Ordered alendronic acid 70 mg oral tablet (16 sources) Bisphosphonate Start: 11-17-19 24 alendronate (Fosamax) 70 mg tablet 11/17/2023 Active Start: 09-26-2017 take 1 tablet by josephine every week alendronate 70 mg oral tablet 70 mg = 1 tab(s), Oral, qWeek Start Date: 04/07/21 Status: Ordered Alendronate / Cholecalciferol (1 source) Bisphosphonate, Vitamin D Alendronate-Cholecal ciferol Active allopurinol 300 mg oral tablet (17 sources) Xanthine Oxidase Inhibitor Start: 2023 allopurinol (Zyloprim) 300 m g tablet 11/21/2023 Active Start: 09-19-2019 allopurinol Re fills(s) 0 Start Date: 09/19/19 Status: Ordered Start: 09-27-2017 take 1 tablet by josephine th once daily Allopurinol Active 300 TAB PO Daily September 27, 2017 1:00am amLODIPine 5 mg oral tablet (4 sources) Dihydropyridine Calcium Channel Roseline Start: 05-29-2022 take 5 mg by mouth once daily Amlodipine Active 5 MG PO Daily May 06, 2023 12:00am ASA 81 mg (1 source) ASA 81 mg 1 tab Oral Active aspirin 81 mg oral tablet (20 sources) Platelet Aggregation Inhibitor, Nonsteroidal Anti-inflammatory Drug Start: 09-19-2019 take 1 tablet by mouth once daily aspirin 81 mg oral tablet 81 mg = 1 tab(s), Oral, Daily, # 30 tab(s), Refills(s) 0 Start Date: 09/19/19 Status: Ordered Start: 09-26-2017 End: 05-06-2023 take 81 mg by mouth once daily in the morning Aspirin Discontinued 81 MG PO Every morning September 26, 2017 1:00am May 06, 2023 11:49am One-Daily Multi- Vitamin - Oral for 30 Days Active atorvastatin 40 mg oral tablet (17 sources) HMG-CoA Reductase Inhibitor Start: 11-07-2023 atorvastatin (Lipito r) 40 mg tablet 11/07/2023 Active Start: 09-19-2019 atorvastatin O ral, Daily, Refills(s) 0 Start Date: 09/19/19 Status: Ordered Start: 09-26-2017 take 1 tablet by josephine th once daily in the morning Atorvastatin Active 40 TAB PO Every morning September 26, 2017 1:00am 24 hr buPROPion hydrochloride 300 mg extended release oral tablet (17 sources) Aminoketone Start: 10-31-2023 buPROPion XL ( Wellbutrin XL) 300 mg 24 hr tablet 10/31/2023 Active Start: 09-26-2017 take 1 tablet by josephine th once daily buPROPion 300 mg/24 hours ER Tab 300 mg = 1 tab(s), Oral, Daily Start Date: 04/08/21 Status: Ordered calcium carbonate 1500 mg oral tablet (1 source) Start: 09-19-2019 take 1 mg by mouth once daily calcium (as carbonate) 600 mg oral tablet mg tab(s), Oral, Daily, Refills(s) 0 Start Date: 09/19/19 Status: Ordered cholecalciferol 0.05 mg oral capsule (13 sources) Vitamin D Start: 04-13-2022 take 2000 [IU] by mouth once daily Cholecalciferol (Vitamin D3) Active 2000 UNIT PO Daily April 13, 2022 12:00am [facility] 1 [facility]-four hours Vitamin D3 50 MCG (1999) 1 cap(s) p.o. qd Active citalopram 20 mg oral tablet (17 sources) Serotonin Reuptake Inhibitor Start: 11-20-2023 citalopram (CeleXA) 20 mg tablet 11/20/2023 Active Start: 09-19-2019 citalopram Ora l, Daily, Refills(s) 0 Start Date: 09/19/19 Status: Ordered Start: 09-26-2017 take 1 tablet by josephine th once daily in the morning Citalopram Active 20 TAB PO Every morning September 26, 2017 1:00am cyclobenzaprine (7 sources) Muscle Relaxant Start: 09-19-2019 cyclobenzaprin e Oral, Refills(s) 0 Start Date: 09/19/19 Status: Ordered Start: 09-26-2017 End: 10-23-2018 take 1 tablet by mouth three times daily Cyclobenzaprine Discontinued 1 TAB PO Three times daily September 26, 2017 1:00am October 23, 2018 12:56pm take 1 tablet by josephine th once daily at bedtime Cyclobenzaprine HCl 10 mg 1 tablet Orally qhs Not-Taking docusate sodium 100 mg oral capsule (2 sources) Start: 05-06-2023 take 1 capsule by mouth three times daily Docusate Sodium (Colace) 100 mg Capsule Active 100 MG PO Three times daily May 06, 2023 12:00am docusate sodium 50 mg / sennosides, residential 8.6 mg oral tablet (1 source) Start: 05-29-2022 take 2 tablets by mouth twice daily sennosides-docu sate sodium (Angelica-Colace) 8.6-50 mg tablet Take 2 tablets by mouth twice a day. 05/29/2022 Active dulaglutide (1 source) GLP-1 [facility]ceptor [facility] empagliflozin 10 mg oral tablet (1 source) Sodium-Glucose Cotransporter 2 Inhibitor Start: 11-22-2023 Jardiance 10 mg 11/22/2023 Active 0.85 ml exenatide 2.35 mg/ml auto-injector (1 source) GLP-1 Receptor Agonist Start: 01-26-2024 Bydureon BCise 2 mg/0.85 mL auto-injector 01/26/2024 Active Fiber (1 source) Fiber Active Fiberlax 625 mg oral tablet (1 source) Start: 04-08-2021 take 2 tablets by mouth once daily Fiberlax 625 mg oral tablet 1,250 mg = 2 tab(s), Oral, Daily Start Date: 04/08/21 Status: Ordered Fish Oils (2 sources) Start: 04-07-2021 take 1200 mg by mouth twice daily Fish Oil 1,200 mg, Oral, BID Start Date: 04/07/21 Status: Ordered Start: 09-19-2019 Fish Oil Oral, Refill(s) 0 Start Date: 09/19/19 Status: Ordered FreeStyle Raissa 2 [place] misc (1 source) Start: 12-13-2023 FreeStyle Libr e 2 [place] misc USE CONTINUOUSLY DAILY 12/13/2023 Active FreeStyle Raissa 2 Sensor kit (1 source) Start: 12-13-2023 FreeStyle Libr e 2 Sensor kit CHANGE SENSOR EVERY 14 DAYS 12/13/2023 Active furosemide 40 mg oral tablet (16 sources) Loop Diuretic Start: 04-07-2021 take 1 tablet by mouth twice daily Lasix 40 mg Tab 40 mg = 1 tab(s), Oral, BID Start Date: 04/07/21 Status: Ordered Start: 09-26-2017 take 40 mg by mouth once daily in the morning Furosemide Active 40 MG PO Every morning September 26, 2017 1:00am gabapentin 800 mg oral tablet (17 sources) Anti-epileptic Agent Start: 11-19-2023 gabapenti n (Neurontin) 800 mg tablet 11/19/2023 Active Start: 09-19-2019 gabapentin Ora l, Refills(s) 0 Start Date: 09/19/19 Status: Ordered Start: 09-26-2017 take 800 mg by mouth three times daily Gabapentin Active 800 MG PO Three times daily September 26, 2017 1:00am Start: 09-26-2017 take 400 mg by mouth three times daily Gabapentin Active 400 MG PO Three times daily September 26, 2017 12:00am take 1 capsule by [facility] every twelve hours Gabapentin 400 MG 1 capsule Orally bid Active hyoscyamine sulfate 0.125 mg disintegrating oral tablet (2 sources) Start: 05-06-2023 take 0.125 mg by mouth three times daily Hyoscyamine Sulfate Active 0.125 MG PO Three times daily May 06, 2023 12:00am take 5 mL by mouth three times d aily hyoscyamine (Levsin) 0.125 mg/5 mL elixir Take 5 mL (125 mcg) by mouth 3 times a day. Active ibuprofen 800 mg oral tablet (1 source) Nonsteroidal Anti-inflammatory Drug Start: 09-19-2019 take 1 tablet by mouth three times daily as needed for pain ibuprofen 800 mg Tab 800 mg = 1 tab(s), Oral, TID, PRN for pain, # 30 tab(s), Refills(s) 0 Start Date: 09/19/19 Status: Ordered insulin glargine 100 unt/ml injectable solution (1 source) Insulin Analog Lantus 100 UNIT/ML as directed Subcutaneous Active Insulin Glargine (Lantus U-100 Insulin) 100 unit/mL solution (1 source) Start: 05-06-2023 inject 19 [IU] by subcutaneous injection once daily Insulin Glargine (Lantus U-100 Insulin) 100 unit/mL solution Active 19 UNIT SUBCUT Daily May 06, 2023 12:00am insulin glargine-yfgn 100 unit/mL (3 mL) Pen (1 source) Start: 06-06-2023 insulin glargine-yfgn 100 unit/mL (3 mL) Pen INJECT 19 UNITS UNDER SKIN DAILY 06/06/2023 Active Insulin Lispro (2 sources) Insulin Analog Start: 05-06-2023 Insulin Lispro Active 0 .ROUTE .COMPLEX May 06, 2023 12:00am per sliding scale Insulin Lispro A ctive lactulose 667 mg/ml oral solution (6 sources) Osmotic Laxative Start: 04-13-2022 take 1 mL by mouth once daily Lactulose Active 30 ML PO Daily April 13, 2022 12:00am Lactulose Active letrozole 2.5 mg oral tablet (17 sources) Aromatase Inhibitor Start: 11-06-2023 letrozole (Femara) 2.5 mg tablet 11/06/2023 Active Start: 09-19-2019 take 1 mg by mouth once daily letrozole mg, Oral, Daily, Refills(s) 0 Start Date: 09/19/19 Status: Ordered Start: 09-26-2017 take 2.5 mg by mouth once daily in the morning Letrozole Active 2.5 MG PO Every morning September 26, 2017 1:00am levothyroxine sodium 0.2 mg oral tablet (20 sources) l-Thyroxine Start: 11-12-2023 levothyroxine (Synthroid, Levoxyl) 200 mcg tablet 11/12/2023 Active Start: 09-19-2019 levothyroxine Daily, Refills(s) 0 Start Date: 09/19/19 Status: Ordered Start: 03-28-2018 take 200 ug by mouth once daily Levothyroxine Active 200 MCG PO Daily March 28, 2018 12:00am Start: 09-26-2017 End: 03-28-2018 take 1 tablet by mouth once daily Levothyroxine Discontinued 1 TAB PO Daily September 26, 2017 1:00am March 28, 2018 9:53am take 1 tablet by josephine th every twenty-four hours Levothyroxine Sodium 200 MCG 1 tablet Orally Once a day Active liothyronine sodium 0.005 mg oral tablet (17 sources) l-Triiodothyronine Start: 11-25-2023 liothyronin e (Cytomel) 5 mcg tablet 11/25/2023 Active Start: 04-07-2021 take 1 tablet by josephine th once daily liothyronine 5 mcg Tab 5 mcg = 1 tab(s), Oral, Daily Start Date: 04/07/21 Status: Ordered Start: 09-26-2017 take 5 ug by mouth o nce daily in the morning Liothyronine Active 5 MCG PO Every morning September 26, 2017 1:00am Lisinopril (7 sources) Angiotensin Converting Enzyme Inhibitor Start: 09-19-2019 lisinopril Oral, Mariella ly, Refills(s) 0 Start Date: 09/19/19 Status: Ordered Start: 09-26-2017 End: 04-13-2022 take 1 tablet by mouth once daily Lisinopril Discontinued 1 TAB PO Daily September 26, 2017 1:00am April 13, 2022 2:11pm loratadine 10 mg oral tablet (1 source) take 1 tablet by mouth once daily loratadine (Claritin) 10 mg tablet Take 1 tablet (10 mg) by mouth once daily. Active magnesium hydroxide 80 mg/ml oral suspension (1 source) Start: 05-29-2022 take 30 mL by mouth twice daily magnesium hydroxide (Milk of Magnesia) 400 mg/5 mL suspension Take 30 mL by mouth twice a day. 05/29/2022 Active meclizine hydrochloride 25 mg oral tablet (17 sources) Antiemetic Start: 11-20-2023 meclizine (Antivert) 25 mg tablet 11/20/2023 Active Start: 09-19-2019 meclizine TID, Refills(s) 0 Start Date: 09/19/19 Status: Ordered Start: 02-06-2018 take 25 mg by mouth twice ayleen y Meclizine Active 25 MG PO Twice daily February 06, 2018 12:00am Start: 02-06-2018 take 25 mg by mouth three times daily Meclizine Active 25 MG PO Three times daily February 05, 2018 11:00pm take 1 tablet by josephine th every twelve hours Meclizine HCl 25 MG 1 tablet as needed Orally TWICE A DAY Active 24 hr metFORMIN hydrochloride 500 mg extended release oral tablet (5 sources) Biguanide Start: 04-21-2022 take 1 tablet by mouth every twenty-four hours metFORMIN HCl ER 500 MG 1 tablet with breakfast Orally Once a day for 30 day(s) Apr, Active Multi Vitamin+ (1 source) Start: 09-19-2019 Multi Vitamin+ Refill(s) 0 Start Date: 09/19/19 Status: Ordered Multivitamin preparation (1 source) Multivitamin Active One-Daily Multi-Vitamin - (2 sources) One-Daily Multi-Vitamin - Oral for 30 Days Active pantoprazole 40 mg delayed release oral tablet (19 sources) Proton Pump Inhibitor Start: 09-23-2023 take 1 tablet by mouth once daily pantoprazole (ProtoNix) 40 mg EC tablet Take 1 tablet (40 mg) by mouth once daily. 09/23/2023 Active Start: 04-08-2021 take 1 tablet by josephine th once daily pantoprazole 40 mg Oral EC Tab 40 mg = 1 tab(s), Oral, Daily Start Date: 04/08/21 Status: Ordered Start: 09-19-2019 pantoprazole D aily, Refills(s) 0 Start Date: 09/19/19 Status: Ordered Start: 09-26-2017 take 40 mg by mouth once daily Pantoprazole Active 40 MG PO Daily September 26, 2017 1:00am take 1 tablet by josephine th every twenty-four hours Pantoprazole Sodium 20 MG 1 tablet Orally Once a day Active pioglitazone 30 mg oral tablet (10 sources) Peroxisome Proliferator Receptor alpha Agonist, Peroxisome Proliferator Receptor gamma Agonist, Thiazolidinedione Start: 11-25-2023 pioglitazone (Actos) 30 mg tablet 11/25/2023 Active Start: 05-06-2023 take 30 mg by mouth once daily Pioglitazone Active 30 MG PO Daily May 06, 2023 12:00am Start: 09-19-2019 pioglitazone O ral, Daily, Refills(s) 0 Start Date: 09/19/19 Status: Ordered Start: 09-26-2017 End: 04-13-2022 take 1 tablet by mouth once daily Pioglitazone Discontinued 1 TAB PO Daily September 26, 2017 1:00am April 13, 2022 2:12pm Potassium (1 source) Potassium Active potassium chloride 20 meq extended release oral tablet (16 sources) Start: 11-20-2023 potassium chlo ride CR 20 mEq ER tablet 11/20/2023 Active Start: 04-13-2022 take 20 mEq by mouth once ayleen y Potassium Chloride Active 20 MEQ PO Daily April 13, 2022 12:00am Start: 04-08-2021 take 1 tablet by josephine once daily Potassium Chloride (Dwz-Vvzj-Mxs M20) 20 mEq oral tablet, extended release 20 mEq = 1 tab(s), Oral, Daily Start Date: 04/08/21 Status: Ordered primidone 50 mg oral tablet (17 sources) Anti-epileptic Agent Start: 11-16-2023 primidone (Mysoline) 50 mg tablet 11/16/2023 Active Start: 09-19-2019 take 50 mg by mouth once daily at bedtime primidone See Instructions, 50 mg Oral Once a day (at bedtime), Refills(s) 0 Start Date: 09/19/19 Status: Ordered Start: 02-06-2018 take 50 mg by mouth three times daily Primidone Active 50 MG PO Three times daily February 06, 2018 12:00am Start: 02-06-2018 take 150 mg by mouth once daily at bedtime Primidone Active 150 MG PO Daily at bedtime February 05, 2018 11:00pm take [address] [facility] at bedtime Primidone 50 MG 3 tablets Orally At bedtime Active Semaglutide (1 source) Start: 05-06-2023 Semaglutide (O zempic) 0.25 mg or 0.5 mg (2 mg/3 mL) pen injector Active 0.5 MG SUBCUT every week May 06, 2023 12:00am sennosides, residential 25 mg oral tablet (1 source) Start: 05-06-2023 Sennosides (Se nna Laxative) 25 mg Tablet Active 50 MG PO Daily at bedtime May 06, 2023 12:00am Stool Softener with Laxative (1 source) Start: 09-19-2019 Stool Softener with Laxative Oral, Once a day (at bedtime), Refill(s) 0 Start Date: 09/19/19 Status: Ordered tiZANidine 2 mg oral tablet (17 sources) Central alpha-2 Adrenergic Agonist Start: 05-29-2022 tiZANidine (Zanaflex ) 2 mg tablet 05/29/2022 Active Start: 04-13-2022 take 4 mg by mouth t hree times daily Tizanidine Active 4 MG PO Three times daily April 13, 2022 12:00am Start: 04-13-2022 take 4 mg by mouth f our times daily Tizanidine Active 4 MG PO Four times daily April 12, 2022 11:00pm Start: 09-19-2019 tizanidine Ora l, Refills(s) 0 Start Date: 09/19/19 Status: Ordered tiZANidine HCl A ctive topiramate (7 sources) Start: 09-19-2019 topiramate Ora l, Refills(s) 0 Start Date: 09/19/19 Status: Ordered Start: 09-26-2017 End: 05-06-2023 take 1 tablet by mouth once daily in the evening Topiramate Discontinued 50 TAB PO Every evening September 26, 2017 1:00am May 06, 2023 11:49am traZODone hydrochloride 50 mg oral tablet (7 sources) Serotonin Reuptake Inhibitor Start: 11-20-2023 traZODone (Desyrel) 50 mg tablet 11/20/2023 Active Start: 04-13-2022 take 100 mg by mouth once daily at bedtime Trazodone Active 100 MG PO Daily at bedtime April 13, 2022 12:00am Start: 04-13-2022 take 50 mg by mouth once daily at bedtime Trazodone Active 50 MG PO Daily at bedtime April 12, 2022 11:00pm take 1 tablet by josephine th every twenty-four hours traZODone HCl 100 MG 1 tablet at bedtime Orally Once a day Active Vitamin D3 (1 source) Vitamin D3 Activ e Vitamin D3 50 MCG (1999 UT) (1 source) take 1 capsule by mouth once daily Vitamin D3 50 MCG (1999 UT) 1 cap(s) p.o. qd Active zolpidem tartrate 5 mg oral tablet (11 sources) gamma-Aminobutyric Acid-ergic Agonist Start: 04-07-2021 take 1 tablet by mouth once daily at bedtime as needed for sleep zolpidem 5 mg Tab 5 mg = 1 tab(s), Oral, Once a day (at bedtime), PRN for sleep Start Date: 04/07/21 Status: Ordered take 1 tablet by josephine th every twenty-four hours Zolpidem Tartrate 10 MG 1 tablet at bedtime as needed Orally Once a day Active Zolpidem Tartrat e Active Completed/Discontinued Medications Medication Drug Class(es) Dates Sig (Normalized) Sig (Original) bisoprolol fumarate 10 mg / hydroCHLOROthiazide 6.25 mg oral tablet (6 sources) Thiazide Diuretic, beta-Adrenergic Roseline Start: 09-26-2017 End: 02-06-2018 take 1 tablet by mouth once daily Bisoprolol-Hydroc hlorothiazide Discontinued 1 TAB PO Daily September 26, 2017 1:00am February 06, 2018 3:18pm take 1 tablet by josephine th every twelve hours Bisoprolol-hydroCHLOROthiazide 10-6.25 M G 1 tablet Orally bid Not-Taking calcium carbonate 1500 mg / cholecalciferol 0.01 mg oral tablet (10 sources) Vitamin D Start: 09-26-2017 End: 05-06-2023 take 1 tablet by mouth twice daily Calcium Carbonate-Vitamin D3 (Calcium 600 + D(3)) 600 mg(1,500mg) -400 unit tablet Discontinued 1 TAB PO Twice daily 180 March 28, 2018 10:17am May 06, 2023 11:47am calcium polycarbophil 625 mg oral tablet (1 source) Start: 04-07-2021 take 2 tablets by mouth once daily FiberCon 625 mg Tab See Instructions, 625 mg Oral 2 tabs qd Start Date: 04/07/21 Status: Ordered ciprofloxacin 500 mg oral tablet (1 source) Quinolone Antimicrobial Start: 09-20-2019 take 1 tablet by mouth once daily Cipro 500 mg Tab 500 mg = 1 tab(s), Oral, q12hr, take 1 tablet the day prior to the procedure and 2nd tablet day of procedure, # 2 tab(s), Refills(s) 0, Pharmacy: [facility] [id number] Start Date: 09/20/19 Status: Ordered cloNIDine hydrochloride 0.3 mg oral tablet (1 source) Central alpha-2 Adrenergic Agonist take 1 tablet by mouth every twelve hours cloNIDine HCl 0.3 MG 1 tablet Orally bid Not-Taking docosahexaenoic acid 144 mg / eicosapentaenoic acid 216 mg / vitamin e 2 unt oral capsule (5 sources) Start: 09-26-2017 End: 04-13-2022 take 1 tablet by mouth twice daily [place]-3 Fatty Acids-Fish Oil (Fish Oil) 360-1,200 mg capsule Discontinued 1 TAB PO Twice daily September 26, 2017 1:00am April 13, 2022 2:12pm exemestane 25 mg oral tablet (1 source) Aromatase Inhibitor take 1 tablet by mouth every twenty-four hours Exemestane 25 MG 1 tablet with a meal Orally Once a day Not-Taking HYLAN G-F 20 (12 sources) Start: 04-12-2022 Synvisc One Mar, 48 mg ibandronic acid 150 mg oral tablet (1 source) Bisphosphonate take 1 tablet by mouth every month Ibandronate Sodium 150 MG 1 tablet Orally qmonth Not-Taking Jentaduento 2.5 MG / 1000 MG 2.5 MG / 1000 MG (1 source) take 1 tablet by mouth twice daily Jentaduento 2.5 MG / 1000 MG 2.5 MG / 1000 MG 1 Tablet Orally bid Not-Taking meloxicam 15 mg oral tablet (1 source) Nonsteroidal Anti-inflammatory Drug take 1 tablet by mouth every twenty-four hours Meloxicam 15 MG 1 tablet Orally Once a day Not-Taking Multivitamin (Daily-Yanira) tablet (5 sources) Start: 09-26-2017 End: 05-06-2023 take 1 tablet by mouth once daily Multivitamin (Daily-Yanira) tablet Discontinued 1 TAB PO Daily September 26, 2017 1:00am May 06, 2023 11:49am Start: 09-26-2017 take 1 tablet by josephine th once daily Multivitamin (Daily-Yanira) tablet Active 1 TAB PO Daily September 26, 2017 12:00am Start: 09-26-2017 take 1 tablet by josephine th once daily Multivitamin (Daily-Yanira) tablet Active 1 TAB PO Daily September 26, 2017 1:00am naproxen sodium 550 mg oral tablet (20 sources) Nonsteroidal Anti-inflammatory Drug Start: 04-13-2022 End: 05-06-2023 take 550 mg by mouth twice daily Naproxen Sodium Discontinued 550 MG PO Twice daily April 13, 2022 12:00am May 06, 2023 11:49am Start: 09-19-2019 naproxen Oral, Refills(s) 0 Start Date: 09/19/19 Status: Ordered Start: 09-26-2017 End: 04-13-2022 take 375 mg by mouth twice daily Naproxen Discontinued 375 MG PO Twice daily September 26, 2017 1:00am April 13, 2022 2:16pm take 1 tablet by josephine th every twelve hours Naproxen 250 MG 1 tablet with food or milk Orally Twice a day Active polyethylene glycol 3350 09264 mg powder for oral solution (15 sources) Osmotic Laxative Start: 04-13-2022 End: 05-06-2023 take 17 g by mouth once daily Polyethylene Glycol 3350 Discontinued 17 GM PO Daily April 13, 2022 12:00am May 06, 2023 11:49am Start: 04-07-2021 take 17 g by mouth twice daily GlycoLax 17 gm, Oral, BID Start Date: 04/07/21 Status: Ordered MiraLax Active 0.25 mg, 0.5 mg dose 1.5 ml semaglutide 1.34 mg/ml pen injector (14 sources) Start: 04-13-2022 End: 05-06-2023 Semaglutide (Ozempic) 0.25 m g or 0.5 mg(2 mg/1.5 mL) Pen Injector Discontinued 0.5 MG SUBCUT every week April 13, 2022 12:00am May 06, 2023 11:46am Start: 03-01-2022 Ozempic (0.25 or 0.5 MG/DOSE) 2 MG/1.5ML 0.5 mg Subcutaneous weekly for 30 days Intolerance of Trulicity due to significant constipation and some symptoms of low blood sugar. Feb, Active Start: 03-01-2022 Ozempic (0.25 or 0.5 MG/DOSE) 2 MG/1.5ML 0.25 mg for one month and then increase to 0.5 mg dose Subcutaneous weekly for 30 days Intolerance of Trulicity due to significant constipation and some symptoms of low blood sugar. Feb, Active triamcinolone acetonide 40 mg/ml injectable suspension (20 sources) Corticosteroid Start: 12-14-2021 Kenalog-40 Mar, 40 mg Start: 12-14-2021 Kenalog-40 December, 20 mg Start: 03-12-2021 Kenalog -40 mg Feb, 40 mg Start: 01-05-2021 Kenalog -40 mg December, 40 mg Vitamin D3 5000 UNIT (1 source) Vitamin D3 5000 UNIT Orally Not-Taking Wrist Splint/Cock-Up/Left L - (1 source) Start: 03-07-2017 Wrist Splint/C ock-Up/Left L - as directed wrist splint with thumb spica as directed for days Feb, Not-Taking Problems Active Problems Problem Classification Problem Date Documented Da te Episodic/Chronic Cancer of bladder (5 sources) Cancer in situ of urinary bladder; Translations: [Carcinoma in situ of bladder] 09-27-2017 Chronic Cancer of breast (6 sources) Malignant neoplasm of upper-outer quadrant of female breast; Translations: [Malignant neoplasm of upper-outer quadrant of right female breast] 09-27-2017 Chronic Cancer of thyroid (16 sources) Malignant tumor of thyroid gland; Translations: [Malignant neoplasm of thyroid gland] 09-27-2017 Chronic Chronic kidney disease (1 source) Chronic kidney disease stage 3A 04-07-2021 Chronic Complications of surgical procedures or medical care (11 sources) Postoperative hypothyroidism; Translations: [Postprocedural hypothyroidism] Onset: 2 Chronic Diabetes mellitus with complications (16 sources) Disorder due to type 2 diabetes mellitus; Translations: [Type 2 diabetes mellitus with unspecified complications] Onset: 2 Resolved: 2 Chronic Diabetes mellitus without complication (3 sources) Type 2 diabetes mellitus without complications; Translations: [Diabetes mellitus] Onset: 2 10-17-2019 Chronic Disorders of lipid metabolism (14 sources) Mixed hyperlipidemia; Translations: [Mixed hyperlipidemia] Onset: 2 Resolved: 2 Chronic E Codes: Fall (1 source) Fall Onset: 4 Esophageal disorders (14 sources) Gastroesophageal reflux disease; Translations: [Gastro-esophageal reflux disease without esophagitis] Onset: 2 Resolved: 2 Chronic Essential hypertension (18 sources) Hypertensive disorder; Translations: [Essential (primary) hypertension] Onset: 2 Resolved: 2 Chronic Fracture of lower limb (5 sources) Displaced other fracture of tuberosity of left calcaneus, subsequent encounter for fracture with malunion; Translations: [Nondisplaced other extraarticular fracture of left calcaneus, initial encounter for closed fracture] Onset: 4 Episodic Genitourinary symptoms and ill-defined conditions (3 sources) Genuine stress incontinence; Translations: [Incontinence without sensory awareness] 10-17-2019 Chronic Genitourinary symptoms and ill-defined conditions (2 sources) Dysuria; Translations: [Increased frequency of urination] Onset: 2 12-31-2019 Episodic Gout and other crystal arthropathies (1 source) Gout 04-07-2021 Chronic Hemorrhoids (1 source) Hemorrhoids 04-07-2021 Episodic Malaise and fatigue (1 source) Weakness; Translations: [WEAKNESS] Onset: 2 Episodic Melanomas of skin (6 sources) H/O Malignant melanoma; Translations: [Personal history of malignant melanoma of skin] 09-27-2017 Episodic Mood disorders (11 sources) Major depression, single episode; Translations: [Major depressive disorder, single episode, unspecified] Onset: 2 Resolved: 2 Chronic Neoplasms of unspecified nature or uncertain behavior (1 source) Neoplasm of uncertain behavior of bladder 09-19-2019 Episodic Nutritional deficiencies (11 sources) Vitamin D deficiency; Translations: [Vitamin D deficiency, unspecified] Onset: 2 Chronic Osteoarthritis (20 sources) Arthritis of left knee; Translations: [Unilateral primary osteoarthritis, left knee] Onset: 2 Resolved: 2 Chronic Osteoporosis (1 source) Osteoporosis 04-07-2021 Chronic Other aftercare (1 source) Other terminologist (current) drug therapy; Translations: [OTH KARATE BLACK BELT CURRENT DRUG THERAPY] Onset: 2 Episodic Other aftercare (1 source) [facility] (current) use of aspirin; Translations: [KARATE BLACK BELT CURRENT USE OF ASPIRIN] Onset: 2 Episodic Other bone disease and musculoskeletal deformities (5 sources) Osteopenia; Translations: [Other specified disorders of bone density and structure, unspecified site] 09-27-2017 Episodic Other connective tissue disease (1 source) Fibromyalgia 04-07-2021 Episodic Other diseases of veins and lymphatics (10 sources) Venous insufficiency of leg; Translations: [Venous insufficiency (chronic) (peripheral)] Episodic Other ear and sense organ disorders (5 sources) Hearing loss associated with syndrome; Translations: [Unspecified hearing loss, right ear] 09-27-2017 Chronic Other ear and sense organ disorders (2 sources) Conductive hearing loss, bilateral; Translations: [Conductive hearing loss, bilateral] Onset: 4 01-30-2024 Chronic Other ear and sense organ disorders (1 source) Conductive hearing loss, bilateral; Translations: [Conductive hearing loss, bilateral] Onset: 4 Chronic Other fractures (1 source) Unspecified displaced fracture of seventh cervical vertebra, initial encounter for closed fracture; Translations: [[employer] DSPL FX 7TH CERV INIT CLOS FX] Onset: 2 Episodic Other gastrointestinal disorders (1 source) Dysphagia; Translations: [Dysphagia, unspecified] Episodic Other gastrointestinal disorders (2 sources) Dysphagia, unspecified; Translations: [Dysphagia, unspecified] Onset: 3 Episodic Other gastrointestinal disorders (1 source) Alteration in bowel elimination 04-08-2021 Episodic Other gastrointestinal disorders (1 source) Chronic constipation 04-07-2021 Episodic Other nervous system disorders (9 sources) Carpal tunnel syndrome of left wrist; Translations: [Carpal tunnel syndrome, left upper limb] Chronic Other nervous system disorders (2 sources) Carpal tunnel syndrome, left upper limb Onset: 2 Resolved: 2 Chronic Other nervous system disorders (1 source) Other chronic pain; Translations: [OTHER CHRONIC PAIN] Onset: 2 Chronic Other non-traumatic joint disorders (3 sources) Pain in right hip; Translations: [PAIN IN RIGHT HIP] Onset: 2 Episodic Other nutritional; endocrine; and metabolic disorders (20 sources) Body mass index 40+ - severely obese; Translations: [Body mass index (BMI) 50.0-59.9, adult] 09-27-2017 Chronic Other nutritional; endocrine; and metabolic disorders (11 sources) Morbid obesity; Translations: [Morbid (severe) obesity due to excess calories] 04-07-2021 Chronic Other nutritional; endocrine; and metabolic disorders (3 sources) Morbid (severe) obesity due to excess calories Onset: 2 Resolved: 2 Chronic Other nutritional; endocrine; and metabolic disorders (9 sources) Severe obesity; Translations: [Morbid (severe) obesity due to excess calories] Chronic Other nutritional; endocrine; and metabolic disorders (3 sources) Body mass index (BMI) 50.0-59.9, adult Onset: 2 Resolved: 2 Chronic Other upper respiratory infections (1 source) Acute upper respiratory infection, unspecified; Translations: [ACUTE UP RESPIRATORY INFECTION UNS] Onset: 2 Episodic Otitis media and related conditions (1 source) Chronic otitis media of bilateral ears; Translations: [Otitis media, unspecified, bilateral] 01-30-2024 Episodic Peripheral and visceral atherosclerosis (15 sources) Peripheral vascular disease; Translations: [Peripheral vascular disease, unspecified] 09-27-2017 Chronic Residual codes; unclassified (9 sources) Obstructive sleep apnea syndrome; Translations: [Obstructive sleep apnea (adult) (pediatric)] Chronic Residual codes; unclassified (2 sources) Obstructive sleep apnea (adult) (pediatric) Onset: 2 Resolved: 2 Chronic Residual codes; unclassified (9 sources) Insomnia; Translations: [Insomnia, unspecified] Episodic Residual codes; unclassified (1 source) Bilateral lower limb edema 04-07-2021 Episodic Superficial injury; contusion (1 source) Contusion of right hip, initial encounter; Translations: [CONTUSION RIGHT HIP INITIAL ENC] Onset: 2 Episodic Thyroid disorders (1 source) Hypothyroidism, unspecified; Translations: [HYPOTHYROIDISM UNSPECIFIED] Onset: 2 Chronic Unclassified (1 source) LOW BACK PAIN, UNSPECIFIED; Translations: [LOW BACK PAIN, UNSPECIFIED] Onset: 2 Unclassified (2 sources) COUGH, UNSPECIFIED; Translations: [COUGH, UNSPECIFIED] Onset: 2 Unclassified (1 source) EMS Onset: 4 Urinary tract infections (1 source) Postinfective urethral stricture of female 12-31-2019 Episodic Past or Other Problems Problem Classification Problem Date Documented Da te Episodic/Chronic E Codes: Fall (2 sources) Unspecified fall, initial encounter; Translations: [UNSPECIFIED FALL INITIAL ENCOUNTER] Onset: 05-21-2022 Episodic Other circulatory disease (4 sources) Other specified symptoms and signs involving the circulatory and respiratory systems; Translations: [OTH SPEC SX SIGNS INVLV CIRC RS] Onset: 10-14-2021 Episodic Other connective tissue disease (2 sources) Pain in left foot; Translations: [Pain in left foot] Onset: 11-28-2023 Episodic Other non-traumatic joint disorders (2 sources) Pain in right knee Onset: 03-17-2022 Resolved: 04-12-2022 Episodic Other non-traumatic joint disorders (2 sources) Pain in left knee Onset: 03-17-2022 Resolved: 04-12-2022 Episodic Other nutritional; endocrine; and metabolic disorders (1 source) Abnormal weight gain Onset: 03-01-2022 Resolved: 03-01-2022 Episodic Residual codes; unclassified (2 sources) Insomnia, unspecified Onset: 03-01-2022 Resolved: 04-21-2022 Episodic Spondylosis; intervertebral disc disorders; other back problems (2 sources) Other specified dorsopathies, lumbar region Onset: 03-01-2022 Resolved: 04-21-2022 Episodic Unclassified (1 source) COUGH, UNSPECIFIED; Translations: [COUGH, UNSPECIFIED] Onset: 04-30-2022 Unclassified (1 source) Onset: 01-30-2024 01-30-2024 Results Test Name Value Interpretation Reference Range Facility MR ANKLE LT WO CONTon 2023 MR ANKLE LT WO CONT MR ANKLE LT WO CONT MR ANKLE LT WO CONT INDICATION: Left calcaneal fracture follow-up COMPARISON: XR foot 09/04/2023 MR foot 10/10/2023 TECHNIQUE: Multisequence, multiplanar imaging of the ankle obtained. FINDINGS: Healing changes of the prior posterior calcaneal fracture with some subtle high fluid weighted planes of the fracture site, degree of osseous bridging better characterize with CT. Unchanged alignment however. No significant bone marrow edema through the rest of the calcaneus. New sites of subtle vague marrow edema involving the first and fifth metatarsal shafts, possibly from stress injury/fracture, recommend dedicated MRI. Moderate distal Achilles tendinosis with intrasubstance tearing. Additional more clefting/regularity posteriorly through the site of a large calcaneal enthesophyte. Small-volume posterior, peroneal tendon sheath fluid suggesting mild tenosynovitis. No evidence of tendon tear. Os navicular as before. Intact Lisfranc ligament complex. Diffuse fatty atrophy and infiltration of the foot musculature. No talar dome as chondral abnormality. No significant joint fluid. Sinus tarsi fat preserved. No evidence of acute or subacute ligamentous injury. Moderate thickening proximal portion of the plantar fascia without tear. IMPRESSION: * Progressive healing posterior calcaneal fracture, degree of osseous bridging better characterized with CT * Marrow edema first and fifth metatarsal shafts potentially stress injury/fracture. Recommend dedicated forefoot/midfoot MRI * Other chronic findings as described. I, Rustam Antonio MD have personally reviewed the image(s) and agree with and/or edited the report Finalized by Rustam Antonio MD on 04/12/2024 2:10 PM Normal [facility] Follow-Upon 04-02-2024 Follow-Up [id number] Gaby Siegel 1960 F Date Provider Department Center 04/02/2024 264-CHAVO YOUNGBLOOD MP ORTHO MPORTHO Family History Problem Relation Age of Onset Hypertension Mother Heart failure Mother Cancer Father Hypertension Father Family Status - Relation Status Age at Mother Father Level of Service:85228 DC OFFICE/OUTPATIENT ESTABLISHED LOW MDM 20 MIN (GC) Reason for Visit and Comments: Pain [136] Normal [facility] Bacterial susceptibility dominguez el by Laura 03-23-2024 Bacterial susceptibility panel DANA (Isol) ORDER#: [id number] ORDERED BY: ROSIE JUAREZ SOURCE: Urine Clean Catch COLLECTED: 03/23/24 22:47 ANTIBIOTICS AT ALEXA.: RECEIVED : 03/23/24 22:47 Culture, Urine FINAL 03/26/24 20:42 Performed at [facility] [address] [place] [id number] ([phone] Escherichia coli >100,000 CFU/ML This organism is an Extended Spectrum Beta Lactamase (ESBL) Iron Installer and resistance to therapy with penicillins, cephalosporins and aztreonam is expected. These organisms generally remain susceptible to carbapenems. Consider ID Consultation. CONTACT PRECAUTIONS INDICATED. E. coli ANTIBIOTICS DANA Interp Ampicillin >=32 R Cefazolin >=64 R D1 Cefepime 16 R Ceftriaxone >=64 R Confirmatory ESBL POSITIV R Gentamicin >=16 R Imipenem <=0.25 S Levofloxacin >=8 R Meropenem <=0.25 S Nitrofurantoin 64 I Piperacillin/Tazobactam <=4 R Tobramycin 8 I Trimethoprim/Sulfamethoxazol e >=320 R -----DRUG COMMENTS D1: Cefazolin sensitivity results can be used to predict the effectiveness of oral cephalosporins (eg. Cephalexin) in uncomplicated Urinary Tract Infections due to E. coli, K. pneumoniae, and P. mirabilis S=SUSCEPTIBLE I=INTERMEDIATE R=RESISTANT Normal [facility] Comment on above: Performed By: #### 5 [id number] #### [facility] [address] [place] [address] Culture, Urineon 03-23-2024 Culture, Urine ORDER#: [id number] OR DERED BY: ROSIE JUAREZ SOURCE: Urine Clean Catch COLLECTED: 03/23/24 22:47 ANTIBIOTICS AT ALEXA.: RECEIVED : 03/23/24 22:47 Culture, Urine PRELIM 03/25/24 07:46 Performed at [address] [address] ([phone] Escherichia coli >100,000 CFU/ML Normal [facility] Comment on above: Performed By: #### C COLEMAN #### [facility] [address] [place] [address] Urinalysis, reflex to cultur lee 03-23-2024 Urine Reflexed to Culture Yes Normal [facility] Comment on above: Performed By: #### U AR #### [facility] [address] [place] [address] Bilirubin Ql (U) Negative Normal Negative [facility] Comment on above: Performed By: #### U AR #### [facility] [address] [place] [address] Clarity (U) Clear Normal Clear [facility] Comment on above: Performed By: #### U AR #### [facility] [address] [place] [address] Color (U) Yellow Normal Straw/Love [facility] Comment on above: Performed By: #### U AR #### [facility] [address] [place] [address] Glucose Ql (U) >=1000 Abnormal Negative [facility] Comment on above: Performed By: #### U AR #### [facility] [address] [place] [address] Hemoglobin Ql (U) Negative Normal Negative [facility] Comment on above: Performed By: #### U AR #### [facility] [address] [place] [address] Ketones Ql (U) Negative Normal Negative [facility] Comment on above: Performed By: #### U AR #### [facility] [address] [place] [address] Leukocyte esterase Test strip Ql (U) Negative Normal Negative [facility] Comment on above: Performed By: #### U AR #### [facility] [address] [place] [address] Nitrite Ql (U) Positive Abnormal Negative [facility] Comment on above: Performed By: #### U AR #### [facility] [address] [place] [address] pH (U) 5.0 [pH] Normal 5.0-9.0 [facility] Comment on above: Performed By: #### U AR #### [facility] [address] [place] [address] Protein Ql (U) Negative Normal Negative [facility] Comment on above: Performed By: #### U AR #### [facility] [address] [place] [address] Specific gravity (U) [Rel density] 1.038 Normal 1.005-1.03 [facility] Comment on above: Performed By: #### U AR #### [facility] [address] [place] [address] Urobilinogen Qn (U) 0.2 {Avani'U}/dL Normal < 2.0 [facility] Comment on above: Performed By: #### U AR #### [facility] [address] [place] [address] Urine Microscopicon 03-23-20 24 Urine Bacteria MANY Abnormal Negative [facility] Comment on above: Performed By: #### U DANA #### [facility] [address] [place] [address] Urine Epithelial Cells Auto 0-2 Normal 0-5 [facility] Comment on above: Performed By: #### U DANA #### [facility] [address] [place] [address] Urine Hyaline Casts Auto 1-3 Normal 0-5 [facility] Comment on above: Performed By: #### U DANA #### [facility] [address] [place] [address] Urine RBC Auto 0-2 Normal 0-5 [facility] Comment on above: Performed By: #### U DANA #### [facility] [address] [place] [address] Urine WBC Auto 10-20 Abnormal 0-5 [facility] Comment on above: Performed By: #### U DANA #### [facility] [address] [place] [address] 36on 02-02-2024 36 If you would see the above message before the order was faxed over [facility] 36 Keysha called and jules antoniold like the order for discontinue boot faxed to [phone] fax at [facility] If any questions to call back Keysha- [phone] [facility] 36on 01-31-2024 36 Order to come out of boot was faxed over [facility] 36 LVM with Keysha jesus barahona per Dr. Youngblood she should of been out of the boot weeks ago. If she needs a order stating this to call the office and let us know what fax number she would like it sent [facility] 36on 01-27-2024 36 Spoke with Keysha arabella nd let her know that she should of been FWB two weeks after her appointment. She wants a order stating she can come out of the boot. I let her know that I will talk to Dr. Youngblood on Tuesday and verify everything and will send order if he approves [facility] 36 Keysha would like t o know if patient should be wearing camboot Please give a call back [phone] [facility] Telephoneon 01-27-2024 Telephone [id number] Gaby Siegel 1960 F Date Provider Department Center 01/27/2024 836-ALFRED OLIVA MP ORTHO MPORTHO Family History Problem Relation Age of Onset Hypertension Mother Heart failure Mother Cancer Father Hypertension Father Family Status - Relation Status Age at Mother Father Reason for Visit and Comments: Cam Boot [Other] Normal [facility] Office Visiton 11-28-2023 Follow-up visit [id number] Gaby Siegel 1960 F Date Provider Department Center 11/28/2023 264-CHAVO YOUNGBLOOD MP ORTHO MPORTHO Family History Problem Relation Age of Onset Hypertension Mother Heart failure Mother Cancer Father Hypertension Father Family Status - Relation Status Age at Mother Father Level of Service:02378 DC OFFICE/OUTPATIENT NEW LOW MDM 30 MINUTES Reason for Visit and Comments: Pain [136] Normal [facility] MR FOOT LT WO CONTon 024 MR FOOT LT WO CONT MR FOOT LT WO CONT History: Patient fell a month ago. Persistent pain.. MRI Left Foot Comparison: 09/04/2023 Technique: Multiplanar multisequence imaging of the foot was obtained without contrast. Findings: Calcaneal fracture is confirmed fractures through the large insertional enthesophyte. Additionally there is an incomplete fracture extending obliquely towards the plantar calcaneal spur. Edema in the posterior calcaneus is appreciated. Surgical consultation is advised. Calcific Achilles insertional tendinopathy is noted. The caliber size of the Achilles tendon is increased as well. Surrounding edema along the distal Achilles tendon is noted. Coarse the peroneal tendons appears appropriate. Study is degraded by patient motion. Posterior medial tendons appear intact. No soft tissue mass is seen. No evidence of bursitis. Impression: * Fracture through the large Achilles enthesophyte has occurred. Additionally there is an incomplete calcaneal fracture present. Significant edema is noted. Surgical follow-up is advised. Please see above discussion.. Finalized by Romi Rosenbaum MD on 10/12/2023 10:30 AM Normal [facility] CBC AND AUTO DIFFon 09-04-19 24 ABSOLUTE BASOPHIL 0.0 X10E9/L Normal 0.0-0.2 [facility] Comment on above: Performed By: #### C BCA, CMP, 2157-6 #### [facility] ([id number]) [address] [place] [address] 39252 ABSOLUTE NEUTROPHIL 7.1 X10E9/L High 1.5-6.6 [facility] Comment on above: Performed By: #### Mei VALDEZ [facility], 2157-01 #### [facility] ([id number]) [address] [place] [address] 81061 Basophils/100 WBC (Bld) 0.4 % Normal [facility] Comment on above: Performed By: #### Mei VALDEZ [facility], 2157-01 #### [facility] ([id number]) [address] [place] [address] 43266 Eosinophils (Bld) [#/Vol] 0.2 10*3/uL Normal 0.0-0.4 [facility] Comment on above: Performed By: #### Mei VALDEZ [facility], 2157-01 #### [facility] ([id number]) [address] [place] [address] 18629 Eosinophils/100 WBC (Bld) 1.7 % Normal [facility] Comment on above: Performed By: #### Mei VALDEZ [facility], 2157-01 #### [facility] ([id number]) [address] [place] [address] 56234 Erythrocyte distribution width (RBC) [Ratio] 15.4 % High 11.5-15.0 [facility] Comment on above: Performed By: #### Mei VALDEZ [facility], 2157-01 #### [facility] ([id number]) [address] [place] [address] 00131 Hematocrit (Bld) [Volume fraction] 38.3 % Normal 35-47 [facility] Comment on above: Performed By: #### Mei VALDEZ [facility], 2157-01 #### [facility] ([id number]) [address] [place] [address] 29993 Hemoglobin (Bld) [Mass/Vol] 12.5 g/dL Normal 11.7-15.5 [facility] Comment on above: Performed By: #### Mei VALDEZ [facility], 2157-01 #### [facility] ([id number]) [address] [place] [address] 18409 Lymphocytes (Bld) [#/Vol] 1.7 10*3/uL Normal 1.0-3.5 [facility] Comment on above: Performed By: #### Mei VALDEZ [facility], 2157-01 #### [facility] ([id number]) [address] [place] [address] 00486 Lymphocytes/100 WBC (Bld) 17.7 % Normal [facility] Comment on above: Performed By: #### Mei VALDEZ [facility], 2157-01 #### [facility] ([id number]) [address] [place] [address] 66351 MCH (RBC) [Entitic mass] 23.2 pg Low 27-34 [facility] Comment on above: Performed By: #### Mei VALDEZ [facility], 2157-01 #### [facility] ([id number]) [address] [place] [address] 04908 MCHC (RBC) [Mass/Vol] 32.7 g/dL Normal 32-36 [facility] Comment on above: Performed By: #### Mei VALDEZ [facility], 2157-01 #### [facility] ([id number]) [address] [place] [address] 67892 MCV (RBC) [Entitic vol] 71 fL Low 80-100 [facility] Comment on above: Performed By: #### Mei VALDEZ [facility], 2157-01 #### [facility] ([id number]) [address] [place] [address] 23537 Monocytes (Bld) [#/Vol] 0.8 10*3/uL Normal 0-0.9 [facility] Comment on above: Performed By: #### C COURTNEY, CMP, 2157-01 #### [facility] ([id number]) [address] [place] [address] 38388 Monocytes/100 WBC (Bld) 7.9 % Normal [facility] Comment on above: Performed By: #### Mei VALDEZ, CMP, 2157-01 #### [facility] ([id number]) [address] [place] [address] 90825 Neutrophils/100 WBC (Bld) 72.3 % Normal [facility] Comment on above: Performed By: #### Mei VALDEZ, [facility], 2157-01 #### [facility] ([id number]) [address] [place] [address] 80128 Platelet mean volume (Bld) [Entitic vol] 9.1 fL Normal 7-12 [facility] Comment on above: Performed By: #### Mei VALDEZ, [facility], 2157-01 #### [facility] ([id number]) [address] [place] [address] 57697 Platelets (Bld) [#/Vol] 271 10*3/uL Normal 150-450 [facility] Comment on above: Performed By: #### Mei VALDEZ, [facility], 2157-01 #### [facility] ([id number]) [address] [place] [address] 23131 RBC COUNT 5.39 X10E12/L High 3.80-5.20 [facility] Comment on above: Performed By: #### Mei VALDEZ, [facility], 2157-01 #### [facility] ([id number]) [address] [place] [address] 05352 WBC (Bld) [#/Vol] 9.9 10*3/uL Normal 4.0-11.0 [facility] Comment on above: Performed By: #### Mei VALDEZ, CMP, 2157-01 #### [facility] ([id number]) [address] [place] [address] 87199 CK [Catalytic activity/Vol]o n 09-04-2023 CPK 31 U/L Normal 24-170 [facility] Comment on above: Performed By: #### C COURTNEY CMP, 2157-01 #### [facility] ([id number]) [address] [place] [address] 11518 COMPREHENSIVE METABOLIC PANE Eligio 09-04-2023 Albumin [Mass/Vol] 3.8 g/dL Normal 3.2-5.3 [facility] Comment on above: Performed By: #### C COURTNEY CMP, 2157-01 #### [facility] ([id number]) [address] [place] [address] 25068 ALP [Catalytic activity/Vol] 79 U/L Normal 39-130 [facility] Comment on above: Performed By: #### Mei VALDEZ CMP, 2157-01 #### [facility] ([id number]) [address] [place] [address] 05158 ALT [Catalytic activity/Vol] 19 U/L Normal 0-31 [facility] Comment on above: Performed By: #### Mei VALDEZ CMP, 2157-01 #### [facility] ([id number]) [address] [place] [address] 26747 Anion gap [Moles/Vol] 9 mmol/L Normal 5-15 [facility] Comment on above: Performed By: #### C BCA, CMP, 2157-01 #### [facility] ([id number]) [address] [place] [address] 66722 AST [Catalytic activity/Vol] 21 U/L Normal 0-41 [facility] Comment on above: Performed By: #### Mei BCA, CMP, 2157-01 #### [facility] ([id number]) [address] [place] [address] 10566 Bilirubin [Mass/Vol] 0.5 mg/dL Normal 0.3-1.2 [facility] Comment on above: Performed By: #### C COURTNEY [facility], 2157-01 #### [facility] ([id number]) [address] [place] [address] 34059 Calcium [Mass/Vol] 9.0 mg/dL Normal 8.5-10.5 [facility] Comment on above: Performed By: #### C COURTNEY [facility], 2157-01 #### [facility] ([id number]) [address] [place] [address] 50014 Chloride [Moles/Vol] 102 mmol/L Normal 98-109 [facility] Comment on above: Performed By: #### Mei VALDEZ CMP, 2157-01 #### [facility] ([id number]) [address] [place] [address] 58950 CO2 [Moles/Vol] 24 mmol/L Normal 22-32 [facility] Comment on above: Performed By: #### C COURTNEY [facility], 2157-01 #### [facility] ([id number]) [address] [place] [address] 13686 Creatinine [Mass/Vol] 0.81 mg/dL Normal 0.40-1.00 [facility] Comment on above: Result Comment: METH OD TRACEABLE TO IDMS STANDARD Performed By: #### C ALEXIS VALDEZ, 2157-01 #### [facility] ([id number]) [address] [place] [address] 60128 GFR/1.73 sq M.predicted among non-blacks MDRD (S/P/Bld) [Vol rate/Area] 81 mL/min/{1.73_m2} Normal >59 [facility] Comment on above: Result Comment: Reported eGFR is based on the CKD-EPI 2020 equation that does not use a race coefficient. Performed By: #### C ALEXIS VALDEZ, 2157-01 #### [facility] ([id number]) [address] [place] [address] 71257 Glucose [Mass/Vol] 190 mg/dL High 65-99 [facility] Comment on above: Performed By: #### C COURTNEY [facility], 2157-01 #### [facility] ([id number]) [address] [place] [address] 33825 Potassium [Moles/Vol] 4.0 mmol/L Normal 3.5-5.0 [facility] Comment on above: Performed By: #### C COURTNEY [facility], 2157-01 #### [facility] ([id number]) [address] [place] [address] 10948 Protein [Mass/Vol] 6.9 g/dL Normal 6.0-8.0 [facility] Comment on above: Performed By: #### Mei VALDEZ [facility], 2157-01 #### [facility] ([id number]) [address] [place] [address] 78015 Sodium [Moles/Vol] 135 mmol/L Normal 134-146 [facility] Comment on above: Performed By: #### Mei VALDEZ [facility], 2157-01 #### [facility] ([id number]) [address] [place] [address] 03906 Urea nitrogen [Mass/Vol] 18 mg/dL Normal 5-27 [facility] Comment on above: Performed By: #### Mei VALDEZ [facility], 2157-01 #### [facility] ([id number]) [address] [place] [address] ABDOMEN AND PELVIS WO CON Ton 09-04-2023 CT ABDOMEN AND PELVIS WO CONT CT ABDOMEN AND PELVIS WO CONT CLINICAL INFORMATION: Abdominal trauma, blunt; lower lumbosacral back pain s/p mechanical fall from standing TECHNIQUE: CT Abdomen and Pelvis without intravenous contrast. All CT scans at this facility use dose modulation, iterative reconstruction, and/or weight based dosing when appropriate to reduce radiation dose to as low as reasonably achievable. COMPARISON: 05/20/2022 FINDINGS: Although, mild by lack of intravenous contrast, no gross abnormalities are seen within the liver, spleen, adrenal glands, kidneys, or pancreas. No abdominal or retroperitoneal masses or adenopathy are seen. No pelvic masses, adenopathy, or fluid collections are identified. Portions of the abdomen were not in the [id number] of the study. There is no evidence for an acute osseous abnormality. IMPRESSION: * Normal noncontrast CT abdomen and pelvis. Finalized by Bertram Herron MD on 09/04/2023 3:56 AM Normal [facility] CT BRAIN WO CONTon CT BRAIN WO CONT CT BRAIN WO CONT CT BRAIN WO CONT CLINICAL INFORMATION: 63 years old Female with fall, head and neck pain. COMPARISON: CT brain dated 05/20/2022 TECHNIQUE: CT brain without intravenous contrast. Automated exposure control was utilized. All CT scans at this facility use dose modulation, iterative reconstruction, and/or weight based dosing when appropriate to reduce radiation dose to as low as reasonably achievable. FINDINGS: No shift of midline structures. No acute intracranial blood products or fluid collections. No loss of cabrera-white differentiation. Ventricles and cisterns are appropriate for patient's age. Unchanged calcifications within the basal ganglia. Brainstem and cerebellum are unremarkable. Orbits, soft tissues, paranasal sinuses, and external auditory canals are unremarkable. Right-sided mastoid effusion. Left mastoid is not well-visualized. No acute skull fracture. Please note, MRI is more sensitive for evaluation of acute or occult process. IMPRESSION: * No acute intracranial findings. * Chronic findings as described above. Approved by Resident Idris Zhong DO on 09/04/2023 3:42 AM IBertram MD have personally reviewed the image(s) and agree with and/or edited the report Finalized by Bertram Herron MD on 09/04/2023 3:48 AM Normal [facility] CT CERVICAL SPINE WO CONTon 09-04-2023 CT CERVICAL SPINE WO CONT CT CERVICAL SPINE WO CONT History: Pain after falling Technique: Thin axial images through the cervical spine were obtained. The study was supplemented by sagittal and coronal reconstructed images. Automated exposure control was utilized. Comparison: 05/20/2022 Findings: There are laminectomies at C4-C5 and C6, new since the previous examination. The vertebral heights and disc spaces are well-maintained. Prevertebral soft tissues are within normal limits. The odontoid is intact. There is no evidence for an acute osseous abnormalities. Impression: Postoperative changes as described above, new since the previous examination dated 05/20/2022. There is no evidence for an acute osseous abnormality. Finalized by Bertram Herron MD on 09/04/2023 3:46 AM Normal [facility] CT LUMBAR RECONSTRUCTIONon 0 09-04-[address] LUMBAR RECONSTRUCTION History: Pain after falling Technique: Thin axial images through the lumbar spine were obtained. The study was supplemented by sagittal and coronal reconstructed images. Automated exposure control was utilized. Comparison: 05/20/2022 Findings: The vertebral heights and disc spaces are well-maintained. There is multilevel facet arthropathy. Endplate osteophyte formation again seen at T12-L1. There is no evidence for an acute osseous abnormality. Impression: Multilevel facet arthropathy. There is no evidence for an acute osseous abnormality. Finalized by Bertram Herron MD on 09/04/2023 3:58 AM Normal [facility] XR FOOT LT MIN 3 VWSon 09-04 XR FOOT LT MIN 3 VWS XR FOOT LT MIN 3 VW S History: Pain after falling Exam/Technique: Frontal lateral and oblique views of the left foot were obtained. Comparison: Study was correlated with a left ankle study performed on 05/27/2022 Findings: Large loose bodies are seen posterior to the calcaneus. These were present on the previous examination with increased in size since the prior study. The visualized osseous structures are diffusely osteopenic but intact. There is no evidence for an acute fracture. IMPRESSION: * Large loose bodies posterior to the calcaneus, increased in size since the previous examination dated 05/27/2022. * Otherwise normal left foot. Finalized by Bertram Herron MD on 09/04/2023 3:42 AM Normal [facility] XR TIBIA FIBULA LT MIN 2 VWS on 09-04-2023 XR TIBIA FIBULA LT MIN 2 VWS XR TIBIA FIBULA LT MIN 2 VWS XR TIBIA FIBULA LT MIN 2 VWS CLINICAL STATEMENT: 63 years old Female with fall, left lower leg pain. COMPARISON: Comparison made to a left ankle study dated 05/27/2022 FINDINGS: There is an acute mildly displaced fracture of the superior calcaneus. Visualized joints are adequate anatomic alignment. Severe tricompartmental degenerative change of the left knee joint. Mild degenerative change of the left ankle joint No suspicious osseous lesion. Mild soft tissue swelling surrounding the left ankle and hindfoot. No radiopaque foreign body. IMPRESSION: * Acute mildly displaced fracture of the superior calcaneus. Approved by Resident Idris Zhong DO on 09/04/2023 3:40 AM Bertram Plascencia MD have personally reviewed the image(s) and agree with and/or edited the report Finalized by Bertram Herron MD on 09/04/2023 3:44 AM Normal [facility] XR WRIST LT MIN 3 VWSon 08-16 XR WRIST LT MIN 3 VWS XR WRIST LT MIN 3 VWS History: Pain after falling Exam/Technique: Frontal lateral oblique and scaphoid views of the left wrist were obtained Comparison: None Findings: There is no evidence for an acute osseous abnormality. Definite fracture is not seen. IMPRESSION: Normal left wrist. Finalized by Bertram Herron MD on 09/04/2023 3:43 AM Normal [facility] Glucose Glucometer (BldC) [M ass/Vol]Ordered By: Shelby Herzog on 05-06-2023 Glucose [Mass/Vol] 170 mg/dL [facility] Comment on above: Random Glucose Refer ence Range is dependent on time and content of last meal. Glucose of more than 200 mg/dL in a nonstressed, ambulatory subject supports the diagnosis of Diabetes Mellitus. Glucose Poct Glucometerson 0 05-06-2023 Glucose [Mass/Vol] 170 mg/dL Normal [facility] Comment on above: Result Comment: [place] Glucose Reference Range is dependent on time and content of last meal. Glucose of more than 200 mg/dL in a nonstressed, ambulatory subject supports the diagnosis of Diabetes Mellitus. PERFORMED BY: [address] [address] PATHOLOGIST GAS ANALYST NUNU LINCOLN M.D. Performed By: #### G MASOUD #### Point of Care testing , Eligio 05-06-2023 L -------- -------- Specimen: [id number] Received: 05/06/23 Status: LUCY Govea Num: [id number] Spec Type: Surgical Subm Dr: Shelby Herzog MD Tissues: A Gastric Biopsy (GASTRIC BX) B Esophagus Biopsy (ESO BX) Procedures: HE/4, Gross/Micro L4/2, PAS-Alcian Blue, H PYLORI -------- Age/ Patient Sex Location Account Attending Physician -------- Rosa Maria Siegel/Jose [id number] Shelby Herzog MD -------- SPEC NUM: [id number] RECD: 05/06/23 STATUS: LUCY GOVEA NUM: [id number] ALEXA: 05/06/[address] [facility] [address]: Shelby Herzog MD ENTERED: 05/06/[address] [facility] DR: SPEC TYPE: Surgical DEPT: S ENTERED BY: [id number] RECV BY: [id number] ORDERED: HE/4, Gross/Micro L4/2, PAS-Alcian Blue, H PYLORI ORDERED: HE/4, Gross/Micro L4/2, PAS-Alcian Blue, H PYLORI Pathological Diagnosis A. Gastric biopsy: - Antral and oxyntic mucosa with superimposed changes of mild chronic reactive gastropathy and mild inactive chronic gastritis in both fragments, otherwise without intestinal metaplasia, acute inflammation, or active erosion observed - H. pylori immunostain with appropriate control is negative for identified Helicobacter organisms B. Esophagus biopsy: - Squamocolumnar mucosa with mild chronic GERD, including moderately associated stromal chronic inflammation in glandular mucosa, otherwise without any distinct intestinal metaplasia (only very rare early suspected goblet cell change per PAS/AB stain per incidental effect of irregular z-line), any glandular dysplasia, eosinophilic exocytosis, or active reflux activity observed Clinical Information GERD, dysphagia, rule out Barber's -------- Specimen: [id number] Received: 05/06/23 Status: LUCY Govea Num: [id number] Spec Type: Surgical Subm Dr: Shelby Herzog MD Tissues: A Gastric Biopsy (GASTRIC BX) B Esophagus Biopsy (ESO BX) Procedures: HE/4, Gross/Micro L4/2, PAS-Alcian Blue, H PYLORI -------- Patient: Rosa Maria Siegel [id number] (Continued) -------- Specimen: [id number] Received: 05/06/23 (Continued) Signed (signature on file) Colin Samuels MD 05/09/231636 -------- Specimen: [id number] Received: 05/06/23 Status: LUCY Govea Num: [id number] Spec Type: Surgical Subm Dr: Shelby Herzog MD Tissues: A Gastric Biopsy (GASTRIC BX) B Esophagus Biopsy (ESO BX) Procedures: HE/4, Gross/Micro L4/2, PAS-Alcian Blue, H PYLORI -------- Patient: Rosa Maria Siegel [id number] (Continued) -------- Specimen: [id number] Received: 05/06/23 (Continued) Gross Description A. Received in formalin labeled with the patient's name, date of and gastric biopsy are two lawrence tissues averaging 0.3 cm. Entirely submitted in one cassette labeled A1. B. Received in formalin labeled with the patient's name, date of and esophagus biopsy is one lawrence tissue measuring 0.3 x 0.3 x 0.2 cm. Entirely submitted in one cassette labeled B1. Microscopic Description CPT Codes CPT Codes [id number] -------- -------- Specimen: [id number] Received: 05/06/23 Status: LUCY Govea Num: [id number] Spec Type: Surgical Subm Dr: Shelby Herzog MD Tissues: A Gastric Biopsy (GASTRIC BX) B Esophagus Biopsy (ESO BX) Procedures: HE/4, Gross/Micro L4/2, PAS-Alcian Blue, H PYLORI -------- Patient: Rosa Maria Siegel [id number] (Continued) -------- Signed (signature on file) Rodolfo-Dajuan Samuels MD 05/09/23 1637 Normal [facility] Automated erythrocytes count in urine sediment (number/area)Ordered By: Elle Walton on 07-17-2022 RBC Auto (Urine sed) [#/Area] 5-9 [HPF] 0-4 [facility] Automated leukocytes count i n urine sediment (number/area)Ordered By: Elle Walton on 07-17-2022 WBC Auto (Urine sed) [#/Area] Innumerable [HPF] 0-4 [facility] Bilirubin Test strip Ql (U)O rdered By: Elle Walton on 07-17-2022 Bilirubin Ql (U) Negative Negative [facility] Color Auto (U)Ordered By: Bismark Walton on 07-17-2022 Color (U) Yellow Yellow [facility] Dipstick and Microscopicon 1 09-17-2021 Appearance (U) Cloudy Critically abnormal Clear [facility] Comment on above: Order Comment: Name Collection Type:: Harmon Catheter Performed By: #### C ASIA, ADDONUAPLUS #### [facility] [address] Bacteria,Urine 3+ High None Seen [facility] Comment on above: Order Comment: Name Collection Type:: Harmon Catheter Performed By: #### C CrecsencioU, ADDONUAPLUS #### [facility] [address] [place] [address] [place] Bilirubin,Urine Negative Normal Negative [facility] Comment on above: Order Comment: Name Collection Type:: Harmon Catheter Performed By: #### C UU, ADDONUAPLUS #### [facility] [address] Color (U) Yellow Normal Yellow [facility] Comment on above: Order Comment: Name Collection Type:: Harmon Catheter Performed By: #### C UU, ADDONUAPLUS #### [facility] [address] [place] [address] Glucose Ql (U) Normal Normal Normal [facility] Comment on above: Order Comment: Name Collection Type:: Harmon Catheter Performed By: #### C UU, ADDONUAPLUS #### [facility] [address] [place] [address] [place] Hyaline Casts,Urine 0-8 Normal 0-8 [facility] Comment on above: Order Comment: Name Collection Type:: Harmon Catheter Performed By: #### C UU, ADDONUAPLUS #### [facility] [address] [place] [address] [place] Ketones Ql (U) Negative Normal Negative [facility] Comment on above: Order Comment: Name Collection Type:: Harmon Catheter Performed By: #### C UU, ADDONUAPLUS #### [facility] [address] [place] [address] [place] Leukocyte esterase Test strip Ql (U) 4+ High Negative [facility] Comment on above: Order Comment: Name Collection Type:: Harmon Catheter Performed By: #### C UU, ADDONUAPLUS #### [facility] [address] [place] [address] [place] Nitrite,Urine Positive High Negative [facility] Comment on above: Order Comment: Name Collection Type:: Harmon Catheter Performed By: #### C UU, ADDONUAPLUS #### [facility] [address] [place] [address] [place] Occult Blood,Urine 2+ High Negative [facility] Comment on above: Order Comment: Name Collection Type:: Harmon Catheter Result Comment: PERF ORMED BY: [place] [address] PATHOLOGIST GAS ANALYST NUNU LINCOLN M.D. Performed By: #### C UU, ADDONUAPLUS #### [address] pH (U) 6.0 [pH] Normal 5.0-9.0 [facility] Comment on above: Order Comment: Name Collection Type:: Harmon Catheter Performed By: #### C UU, ADDONUAPLUS #### [address] Protein,Urine Negative Normal Negative [facility] Comment on above: Order Comment: Name Collection Type:: Harmon Catheter Performed By: #### C UU, ADDONUAPLUS #### [address] RBC,Urine 5-9 High 0-4 [facility] Comment on above: Order Comment: Name Collection Type:: Harmon Catheter Performed By: #### C UU, ADDONUAPLUS #### [address] Specificy [place],Urine 1.015 Normal 1.001-1.03 0 [facility] Comment on above: Order Comment: Name Collection Type:: Harmon Catheter Performed By: #### C UU, ADDONUAPLUS #### [address] Squamous Epithelial Cell,Urine None Seen Normal 0-2 [facility] Comment on above: Order Comment: Name Collection Type:: Harmon Catheter Performed By: #### C UU, ADDONUAPLUS #### [address] Urobilinogen,Urine Normal Normal Normal [facility] Comment on above: Order Comment: Name Collection Type:: Harmon Catheter Performed By: #### C UU, ADDONUAPLUS #### [place] [address] [place] WBC,Urine Innumerable High 0-4 [facility] Comment on above: Order Comment: Name Collection Type:: Harmon Catheter Performed By: #### C UU, ADDONUAPLUS #### [facility] [address] [place] [address] Yeast,Urine None Seen Normal None Seen [facility] Comment on above: Order Comment: Name Collection Type:: Harmon Catheter Result Comment: PERF ORMED BY: [place] [address] PATHOLOGIST GAS ANALYST NUNU LINCOLN M.D. Performed By: #### C UU, ADDONUAPLUS #### [facility] [address] [place] [address] Ketones Auto test strip (U) [Mass/Vol]Ordered By: Elle Walton on 07-17-2022 Ketones (U) [Mass/Vol] Negative Negative [facility] Laboratory - UrinalysisOrder ed By: Elle Walton on 07-17-2022 Hyaline casts LM Ql (Urine sed) 0-8 [LPF] 0-8 [facility] Nitrite Test strip Ql (U)Ord ered By: Elle Walton on 07-17-2022 Nitrite Ql (U) Positive Negative [facility] Protein Auto test strip (U) [Mass/Vol]Ordered By: Elle Walton on 07-17-2022 Protein (U) [Mass/Vol] Negative Negative [facility] Specific gravity Auto test s trip (U) [Rel density]Ordered By: Elle Walton on 07-17-2022 Specific gravity (U) [Rel density] 1.015 1.001-1.03 0 [facility] Squamous epithelial cells de tection in urine sediment by light microscopyOrdered By: Elle Walton on 07-17-2022 Epithelial cells.squamous LM Ql (Urine sed) None seen [HPF] 0-2 [facility] Urine Cultureon 07-17-2022 Bacteria identified Cx Nom (U) ORGANISM: Proteus mirabilis (O:PROMIR) [place] Count 20,000 ORGANISM: Providencia stuartii (O:PROSTU) [place] Count >100,000 Aerobic DANA Charge (NUC86) SUSCEPTIBILITY ORGANISM: O:PROMIR ANTIBIOTIC INTERPRETATION DANA Amikacin S <16 Ampicillin S <8 Ampicillin/Sulbactam S <8 Aztreonam S <4 Cefazolin S <2 Cefepime S <2 Ceftazidime S <1 Ceftazidime/Avibactam S <8 Ceftriaxone S <1 Ciprofloxacin S <1 Ertapenem S <0.5 Gentamicin S <4 Levofloxacin S <2 Meropenem S <1 Nitrofurantoin R >64 Piperacillin/Tazobactam S <16 Tetracycline R >8 Tobramycin S <4 Trimethoprim/Sulfamethoxazol e S <2 Aerobic DANA Charge (NUC86) SUSCEPTIBILITY ORGANISM: O:PROSTU ANTIBIOTIC INTERPRETATION DANA Amikacin S <16 Ampicillin/Sulbactam IB <8 Aztreonam IB <4 Cefazolin R >16 Cefepime S <2 Ceftazidime IB 4 Ceftazidime/Avibactam S <8 Ceftriaxone IB <1 Ciprofloxacin R >2 Ertapenem S <0.5 Levofloxacin I 4 Meropenem S <1 Nitrofurantoin R >64 Piperacillin/Tazobactam IB <16 Tetracycline R >8 Tigecycline I 4 Trimethoprim/Sulfamethoxazol e S <2 S = SUSCEPTIBLE I = INTERMEDIATE R = RESISTANT BLANK = DATA NOT AVAILABLE, OR DRUG NOT ADVISABLE OR TESTED R* = RESISTANCE DUE TO EXTENDED SPECTRUM BETA-LACTAMASES ESBL = EXTENDED SPECTRUM BETA-LACTAMASE TFG = THYMIDINE-DEPENDENT STRAIN JOSLYN = BETA-LACTAMASE POSITIVE IB = INDUCIBLE BETA-LACTAMASE. APPEARS IN PLACE OF 'S' WITH SPECIES KNOWN TO POSSESS INDUCIBLE BETA-LACTAMASES. POTENTIALLY THEY MAY BECOME RESISTANT TO ALL B-LACTAM DRUGS. PERFORMED BY: [place] [address] [place] [address] PATHOLOGIST GAS ANALYST NUNU LINCOLN M.D. Normal [facility] Comment on above: Performed By: #### C UU, ADDONUAPLUS #### [facility] [address] Urine bacteria detection by automated methodOrdered By: Elle Walton on 07-17-2022 Bacteria Auto Ql (U) 3+ None Seen [facility] Urine clarity by refractomet ry automatedOrdered By: Elle Walton on 07-17-2022 Clarity Refractometry automated (U) Cloudy Clear [facility] Urine glucose measurement by automated test strip (mass/volume)Ordered By: Elle Walton on 07-17-2022 Glucose Auto test strip (U) [Mass/Vol] Normal mg/dL Normal [facility] Urine hemoglobin detection b y automated test stripOrdered By: Elle Walton on 07-17-2022 Hemoglobin Auto test strip Ql (U) 2+ Negative [facility] Urine leukocyte esterase det ection by automated test stripOrdered By: Elle Walton on 07-17-2022 Leukocyte esterase Auto test strip Ql (U) 4+ Negative [facility] Urobilinogen Auto test strip (U) [Mass/Vol]Ordered By: Elle Walton on 07-17-2022 Urobilinogen (U) [Mass/Vol] Normal mg/dL Normal [facility] Yeast detection in urine sed iment by light microscopyOrdered By: Elle Walton on 07-17-2022 Yeast LM Ql (Urine sed) None seen [HPF] None Seen [facility] pH Auto test strip (U)Ordere d By: Elle Walton on 07-17-2022 pH (U) 6.0 [pH] 5.0-9.0 [facility] CBC AUTO DIFFon 05-20-2022 BASO # 0.1 103/ul Normal 0.0-0.1 [facility] Comment on above: Performed By: #### C BC #### [facility] [address] [address] [address] Gee Samuels Basophils/100 WBC (Bld) 0.8 % Normal 0.2-2.0 [facility] Comment on above: Performed By: #### C BC #### [facility] [address] [place] [address] Dr. Gee Samuels EO # 0.3 103/ul Normal 0.0-0.7 [facility] Comment on above: Performed By: #### C BC #### [facility] [address] [place] [address] Dr. Gee Samuels Eosinophils/100 WBC (Bld) 4.2 % Normal 0.9-7.0 [facility] Comment on above: Performed By: #### C BC #### [facility] [address] [place] [address] Dr. Gee Samuels Erythrocyte distribution width (RBC) [Ratio] 15.1 % Critically high 11.0-15.0 [facility] Comment on above: Performed By: #### C BC #### [facility] [address] [place] [address] Dr. Gee Saumels Hematocrit (Bld) [Volume fraction] 39.1 % Normal 36.0-48.0 [facility] Comment on above: Performed By: #### C BC #### [facility] [address] [place] [address] Dr. Gee Samuels Hemoglobin (Bld) [Mass/Vol] 11.9 g/dL Critically low 12.0-16.0 [facility] Comment on above: Performed By: #### C BC #### [facility] [address] [place] [address] Dr. Gee Samuels IG # 0.01 10e3/ul Normal 0.00-0.03 [facility] Comment on above: Performed By: #### C BC #### [facility] [address] [place] [address] Dr. Gee Samuels IG % 0.2 % Normal 0.0-0.5 [facility] Comment on above: Performed By: #### C BC #### [facility] [address] [place] [address] Dr. Gee Samuels LYMPH # 2.3 103/ul Normal 1.2-3.8 [facility] Comment on above: Performed By: #### C BC #### [facility] [address] [place] [address] Dr. Gee Samuels Lymphocytes/100 WBC (Bld) 35.6 % Normal 20.5-60.0 [facility] Comment on above: Performed By: #### C BC #### [facility] [address] [place] [address] Dr. Gee Samuels MANUAL DIFF REQ NO Normal [facility] Comment on above: Performed By: #### C BC #### [facility] [address] [place] [address] Dr. Gee Samuels MCH (RBC) [Entitic mass] 23.9 pg Critically low 26.7-34.0 [facility] Comment on above: Performed By: #### C BC #### [facility] [address] [place] [address] Dr. Gee Samuels MCHC (RBC) [Mass/Vol] 30.4 g/dL Normal 29.9-35.2 [facility] Comment on above: Performed By: #### C BC #### [facility] [address] [place] [address] Dr. Gee Samuels MCV (RBC) [Entitic vol] 78.5 fL Critically low 81.0-99.0 [facility] Comment on above: Performed By: #### C BC #### [facility] [address] [place] [address] Dr. Gee Samuels MONO # 0.7 103/ul Normal 0.3-0.8 [facility] Comment on above: Performed By: #### C BC #### [facility] [address] [place] [address] Dr. Gee Samuels Monocytes/100 WBC (Bld) 10.1 % Normal 1.7-12.0 [facility] Comment on above: Performed By: #### C BC #### [facility] [address] [place] [address] Dr. Gee Samuels NEUT # 3.2 103/ul Normal 1.4-6.5 [facility] Comment on above: Performed By: #### C BC #### [facility] [address] [address] [address] Gee Samuels Neutrophils/100 WBC (Bld) 49.1 % Normal 43.0-75.0 [facility] Comment on above: Performed By: #### C BC #### [facility] [address] [place] [address] Dr. Gee Samuels Platelet mean volume (Bld) [Entitic vol] 11.0 fL Normal 9.5-13.5 [facility] Comment on above: Performed By: #### C BC #### [facility] [address] [place] [address] Dr. Gee Samuels PLT 158 103/ul Normal 150-450 [facility] Comment on above: Performed By: #### C BC #### [facility] [address] [place] [address] Dr. Gee Samuels RBC 4.98 106/ul Normal 4.20-5.40 [facility] Comment on above: Performed By: #### C BC #### [facility] [address] [place] [address] Dr. Gee Samuels WBC 6.4 103/ul Normal 4.0-11.0 [facility] Comment on above: Performed By: #### C BC #### [facility] [address] [place] [address] ABD/PELVIS WO CONon 05-20 CT ABD/PELVIS WO CON EXAM: CT ABDOMEN PE LVIS WITHOUT IV CONTRAST CLINICAL INDICATION: Pain, fall COMPARISON: No comparison studies are available at the time of this dictation. TECHNIQUE: Axial CT images were obtained through the abdomen and pelvis with IV contrast. Coronal and sagittal reformats were obtained. Dose reduction techniques were achieved by using automated exposure control and/or adjustment of mA and/or kV according to patient size and/or use of iterative reconstruction technique. FINDINGS: Exam is limited by lack of contrast. Exam is limited by patient body habitus. Lower thorax: Minimal atelectatic changes in the lung bases. No pleural effusion. Coarse calcification in the left breast. Heart is not enlarged without pericardial effusion. Liver: Moderate hepatic steatosis, otherwise unremarkable Biliary: The gallbladder is unremarkable. No abnormal biliary dilatation seen. Spleen: Splenomegaly measuring 15.5 cm. Pancreas: Unremarkable. Adrenals: Normal. Kidneys and bladder: Mildly lobular appearance with mild perinephric stranding bilaterally which may be chronic but if concern for infection correlation with UA may be obtained. Small left renal cortical hypodensity suggestive of a cyst. No hydronephrosis. Bladder contains a couple of tiny foci of gas likely from recent instrumentation. GI Tract: No evidence of obstruction. Mild stool throughout the colon. Scattered diverticula suggested without evidence of diverticulitis. The appendix is not readily visualized. Lymph Nodes: No lymphadenopathy. Mesentery/peritoneum: No free fluid or free air. Retroperitoneum: No mass or fluid collection. Vasculature: Atherosclerotic calcifications of the aorta and branches without evidence of AAA. Pelvis: No mass visible. Uterus appears present and grossly unremarkable, however not well assessed by CT. Bones/Soft Tissues: No acute osseous abnormality visualized. Mild/moderate chronic degenerative changes of the spine. Please refer to separate spine CT report for further description of findings. No significant soft tissue abnormality. IMPRESSION: No evidence of acute traumatic injury within the abdomen or pelvis. Electronically authenticated by: JIMMY MYERS Date: 2022-05-20 03:43 Normal [facility] CT CSPINE WO CONon 2 CT CSPINE WO CON EXAMINATION: CT CSPI NE WO CON CLINICAL INDICATION: Fall. TECHNIQUE: Axial CT images of the cervical spine were obtained without intravenous contrast administration. Reformatted images in coronal and sagittal planes were then acquired using the axial source data. Automated dose lowering techniques and/or adjustment according to patient size were utilized for this examination. COMPARISON: None at our institution at the time of this dictation. FINDINGS: Study limited due to artifact secondary to patient's body habitus. There is a questionable mild compression deformity along the superior endplate of C7, limited evaluation within this region due to artifact. The remainder of the vertebral body heights are preserved. The dens and atlantodens interval is intact. The ring of C1 is intact no other fractures are visualized. The posterior elements are intact. The prevertebral soft tissues appear unremarkable. Cervical spine alignment is maintained without evidence for spondylolisthesis. Multilevel mild to moderate degenerative disc disease visualized with the most significant changes at the C5-C6 level. At the level of C5-C6 there is calcification of the left posterior epidural space with a calcified lesion noted along the left aspect of the thecal sac measuring 1.2 x 1 x 1.6 cm in AP, TV and CC dimensions. There is mass effect upon the cord to the right with severe central canal narrowing and marked narrowing of the left lateral recess. MRI of the cervical spine with IV contrast may be done to further evaluate. Imaged portions of the lungs appear unremarkable. IMPRESSION: Study limited due to artifact secondary to patient's body habitus. 1. Questionable mild compression deformity along the superior endplate of C7, limited evaluation within this region due to artifact. No other acute fractures are visualized. No evidence for traumatic malalignment. 2. At the level of C5-C6 there is calcification of the left posterior epidural space with a calcified lesion noted within the left aspect of the thecal sac measuring 1.2 x 1 x 1.6 cm in AP, TV and CC dimensions. There is mass effect upon the cord to the right with severe central canal narrowing and marked narrowing of the left lateral recess. Differential diagnosis include but are not limited to a calcified intradural meningioma versus calcified synovial cyst versus other etiologies, MRI cervical spine with IV contrast is recommended for further evaluation. Electronically authenticated by: CATHIE MODI Date: 2022-05-20 03:45 Normal [facility] CT HEAD WO CONon 05-20-2022 CT HEAD WO CON EXAMINATION: CT HEAD WO CON HISTORY: Fall with right posterior head pain COMPARISON: None. TECHNIQUE: CT examination of the head without IV contrast. Multiplanar reformats generated. Dose reduction techniques were achieved by using automated exposure control and/or adjustment of mA and/or kV according to patient size and/or use of iterative reconstruction technique. FINDINGS: Acute Findings: No evidence of acute intracranial hemorrhage, large territorial infarct or suggestion of mass. MRI is more sensitive for detecting acute processes such as infarct, and may be considered if clinically warranted. Chronic Changes: Mild generalized brain atrophy. White matter appears within normal limits for age. Ventricles and sulci: Mild prominence of the ventricles and CSF spaces, likely related to brain volume loss. Other: Atherosclerotic calcifications of the larger arteries noted near the skull base. The skull appears grossly intact, without evidence of depressed fracture. No significant fluid is seen in the included paranasal sinuses. Mastoid air cells appear somewhat underpneumatized and there may have been previous mastoidectomy. IMPRESSION: No CT evidence of an acute intracranial abnormality. Electronically authenticated by: JIMMY MYERS Date: 2022-05-20 02:54 Normal [facility] CT HIP RT WO CONon 2 CT HIP RT WO CON EXAMINATION: CT HIP RT WO CON HISTORY: Pain, fall COMPARISON: None. TECHNIQUE: CT of the right hip was performed without contrast. Multiplanar reformats generated. Dose reduction techniques were achieved by using automated exposure control and/or adjustment of mA and/or kV according to patient size and/or use of iterative reconstruction technique. FINDINGS: Soft tissues: No appreciable significant abnormality or focal fluid collection. No radiopaque foreign bodies. Bones/joint: Mild generalized osteopenia. Mild degenerative change of the right hip joint. Visualized right hemipelvis appears intact. No fracture or dislocation of the hip/proximal right femur identified. Small sclerotic density in the region of the lesser trochanter, likely bone island.No destructive bone lesion is seen. IMPRESSION: No evidence of right hip fracture. Electronically authenticated by: JIMMY MYERS Date: 2022-05-20 04:04 Normal [facility] CT LSPINE WO CONon 2 CT LSPINE WO CON EXAMINATION: CT LSPI NE WO CON, 05/20/2022 1:53 AM EDT HISTORY: Pain COMPARISON: None. TECHNIQUE: CT of the lumbar spine was performed without IV contrast. CT dose reduction technique was used, including Automated Exposure Control. FINDINGS: MINERALIZATION: Mild osteopenia. No evidence of lytic/blastic lesion. VERTEBRAL BODIES: Normal in height with no acute compression fracture. DISC SPACES: Generally maintained with mild multilevel degenerative disk disease suggested. ALIGNMENT: Normal. POSTERIOR ELEMENTS: Appear intact. There is moderate multilevel facet arthropathy. SPINAL CANAL/NEURAL FORAMEN: Mild/moderate canal and neural foraminal stenoses suggested at L4-L5 and L5-S1 primarily. No critical bony canal stenosis is suggested. VISUALIZED UPPER PELVIS: No fracture of the visualized sacrum or pelvis seen. SOFT TISSUES: Unremarkable. Please refer to separate CT body report for further description of findings. IMPRESSION: 1. No acute fracture or traumatic subluxation of the lumbar spine. 2. Degenerative changes as described in the body of the report. Electronically authenticated by: JIMMY MYERS Date: 2022-05-20 03:49 Normal [facility] ER URINE PROFILEon 10-06-202 2 Bilirubin Ql (U) Negative Normal NEGATIVE [facility] Comment on above: Performed By: #### E RUR #### [facility] [address] [place] [address] Dr. Gee Samuels Clarity (U) CLEAR Normal CLEAR [facility] Comment on above: Performed By: #### E RUR #### [facility] [address] [place] [address] Dr. Gee Samuels Color (U) YELLOW Normal YELLOW [facility] Comment on above: Performed By: #### E RUR #### [facility] [address] [place] [address] Dr. Gee Samuels ERUAHD A micrscopic examina tion will be performed if indicated. Normal [facility] Comment on above: Performed By: #### E RUR #### [facility] [address] [place] [address] Dr. Gee Samuels Glucose Ql (U) Negative Normal NEGATIVE [facility] Comment on above: Performed By: #### E RUR #### [facility] [address] [place] [address] Dr. Gee Samuels Hemoglobin Ql (U) Negative Normal NEGATIVE [facility] Comment on above: Performed By: #### E RUR #### [facility] [address] [place] [address] Dr. Gee Samuels Ketones Ql (U) TRACE Abnormal NEGATIVE [facility] Comment on above: Performed By: #### E RUR #### [facility] [address] [place] [address] Dr. Gee Samuels LEUKOCYTES Negative Normal NEGATIVE [facility] Comment on above: Performed By: #### E RUR #### [facility] [address] [place] [address] Dr. Gee Samuels Nitrite Ql (U) Negative Normal NEGATIVE [facility] Comment on above: Performed By: #### E RUR #### [facility] [address] [place] [address] Dr. Gee Samuels pH (U) 5.5 [pH] Normal 5-9 [facility] Comment on above: Performed By: #### E RUR #### [facility] [address] [place] [address] Dr. Gee Samuels SPEC GRAVITY >=1.030 Abnormal 1.005-<=1. 025 [facility] Comment on above: Performed By: #### E RUR #### [facility] [address] [place] [address] Dr. Gee Samuels UA PROTEIN Negative Normal NEGATIVE/ TRACE [facility] Comment on above: Performed By: #### E RUR #### [facility] [address] [place] [address] Dr. Gee Samuels UR MICRO IND NOT INDICATED Normal [facility] Comment on above: Performed By: #### E RUR #### [facility] [address] [place] [address] Dr. Gee Samuels Urobilinogen Qn (U) 0.2 {Avani'U}/dL Normal 0.2 - 1. 0 [facility] Comment on above: Performed By: #### E RUR #### [facility] [address] [place] [address] Dr. Gee Samuels PROF 14(COMP METB)on 022 Albumin [Mass/Vol] 3.8 g/dL Normal 3.4-5.0 [facility] Comment on above: Performed By: #### C MP #### [facility] [address] [place] [address] Dr. Gee Samuels Albumin/Globulin [Mass ratio] 1.3 {ratio} Normal [facility] Comment on above: Performed By: #### C MP #### [facility] [address] [place] [address] Dr. Gee Samuels ALP [Catalytic activity/Vol] 84 U/L Normal 46-116 [facility] Comment on above: Performed By: #### C MP #### [facility] [address] [place] [address] Dr. Gee Samuels ALT [Catalytic activity/Vol] 30 U/L Normal 14-59 [facility] Comment on above: Performed By: #### C MP #### [facility] [address] [address] [address] Gee Samuels Anion gap [Moles/Vol] 12.7 mmol/L Normal [facility] Comment on above: Performed By: #### C MP #### [facility] [address] [address] [address] Gee Samuels AST [Catalytic activity/Vol] 26 U/L Normal 15-37 [facility] Comment on above: Performed By: #### C MP #### [facility] [address] [address] [address] Gee Samuels Bilirubin [Mass/Vol] 0.4 mg/dL Normal 0.2-1.0 [facility] Comment on above: Performed By: #### C MP #### [facility] [address] [place] [address] Dr. Gee Samuels Calcium [Mass/Vol] 8.8 mg/dL Normal 8.5-10.1 [facility] Comment on above: Performed By: #### C MP #### [facility] [address] [place] [address] Dr. Gee Samuels Chloride [Moles/Vol] 100 mmol/L Normal 98-107 [facility] Comment on above: Performed By: #### C MP #### [facility] [address] [place] [address] Dr. Gee Samuels CO2 [Moles/Vol] 28.1 mmol/L Normal 21.0-32.0 [facility] Comment on above: Performed By: #### C MP #### [facility] Laboratory [address] [place] [address] Dr. Gee Samuels Creatinine [Mass/Vol] 1.30 mg/dL Critically high 0.55-1.02 [facility] Comment on above: Performed By: #### C MP #### [facility] [address] [place] [address] Dr. Gee Samuels EGFR-AF TURKMEN 50 mL/min/1.73m2 Critically low >=60 [facility] Comment on above: Performed By: #### C MP #### [facility] [address] [place] [address] Dr. Gee Samuels EGFR-NON AF TURKMEN 41 mL/min/1.73m2 Critically low >=60 [facility] Comment on above: Performed By: #### C MP #### [facility] [address] [place] [address] Dr. Gee Samuels Globulin (S) [Mass/Vol] 3.0 g/dL Normal [facility] Comment on above: Performed By: #### C MP #### [facility] [address] [address] [address] Gee Samuels Glucose [Mass/Vol] 224 mg/dL Critically high 74-106 T [facility] Comment on above: Performed By: #### C MP #### [facility] [address] [place] [address] Dr. Gee Samuels Potassium [Moles/Vol] 3.8 mmol/L Normal 3.5-5.1 [facility] Comment on above: Performed By: #### C MP #### [facility] [address] [place] [address] Dr. Gee Samuels Protein [Mass/Vol] 6.8 g/dL Normal 6.4-8.2 [facility] Comment on above: Performed By: #### C MP #### [facility] [address] [place] [address] Dr. Gee aSmuels Sodium [Moles/Vol] 137 mmol/L Normal 136-145 [facility] Comment on above: Performed By: #### C MP #### [facility] [address] [place] [address] Dr. Gee Samuels Urea nitrogen [Mass/Vol] 20.0 mg/dL Critically high 7.0-18.0 [facility] Comment on above: Performed By: #### C MP #### [facility] [address] [place] [address] Dr. Gee Samuels Urea nitrogen/Creatinine [Mass ratio] 15.4 mg/mg Normal [facility] Comment on above: Performed By: #### C MP #### [facility] [address] [place] [address] Dr. Gee Samuels CBC AUTO DIFFon 04-30-2022 BASO # 0.0 103/ul Normal 0.0-0.1 [facility] Comment on above: Performed By: #### C BC ####[facility] [address] [place], [place] [address]Dr. Gee Arvind Basophils/100 WBC (Bld) 0.3 % Normal 0.2-2.0 [facility] Comment on above: Performed By: #### C BC ####[facility] [address] [place], [place] [address]Dr. Lindseyalexi Arvind EO # 0.1 103/ul Normal 0.0-0.7 [facility] Comment on above: Performed By: #### C BC ####[facility] [address] [place], [place] [address]Dr. Gee Samuels Eosinophils/100 WBC (Bld) 1.1 % Normal 0.9-7.0 [facility] Comment on above: Performed By: #### C BC ####[facility] [address] [place], [place] [address]Dr. Gee Samuels Erythrocyte distribution width (RBC) [Ratio] 14.7 % Normal 11.0-15.0 [facility] Comment on above: Performed By: #### C BC ####[facility] [address] [place], [place] [address]Dr. Lindseyalexi Samuels Hematocrit (Bld) [Volume fraction] 38.9 % Normal 36.0-48.0 [facility] Comment on above: Performed By: #### C BC ####[facility] Myob[address]zy[address] [place], [place] [address]Dr. Lindseyalexi Arvind Hemoglobin (Bld) [Mass/Vol] 12.1 g/dL Normal 12.0-16.0 [facility] Comment on above: Performed By: #### C BC ####[facility] [address] [place], [place] [address]Dr. Gee Samuels IG # 0.02 10e3/ul Normal 0.00-0.03 [facility] Comment on above: Performed By: #### C BC ####[facility] [address] [place], [place] [address]DrAvi Samuels IG % 0.2 % Normal 0.0-0.5 [facility] Comment on above: Performed By: #### C BC ####[facility] [address] [address]DrAvi Samuels LYMPH # 1.8 103/ul Normal 1.2-3.8 [facility] Comment on above: Performed By: #### C BC ####[facility] [address] [address]DrAvi Samuels Lymphocytes/100 WBC (Bld) 19.2 % Critically low 20.5-60.0 [facility] Comment on above: Performed By: #### C BC ####[facility] [address] [place], [place] [address]DrAvi Samuels MANUAL DIFF REQ NO Normal [facility] Comment on above: Performed By: #### C BC ####[facility] [address] [address]DrAvi Samuels MCH (RBC) [Entitic mass] 23.7 pg Critically low 26.7-34.0 [facility] Comment on above: Performed By: #### C BC ####[facility] [address] [place], [place] [address]DrAvi Samuels MCHC (RBC) [Mass/Vol] 31.1 g/dL Normal 29.9-35.2 [facility] Comment on above: Performed By: #### C BC ####[facility] [address] [place], [place] [address]DrAvi Samuels MCV (RBC) [Entitic vol] 76.3 fL Critically low 81.0-99.0 [facility] Comment on above: Performed By: #### C BC ####[facility] [address] [place], [place] [address]DrAvi Samuels MONO # 0.9 103/ul Critically high 0.3-0.8 [facility] Comment on above: Performed By: #### C BC ####[facility] [address] [place], [place] [address]DrAvi Samuels Monocytes/100 WBC (Bld) 9.0 % Normal 1.7-12.0 [facility] Comment on above: Performed By: #### C BC ####[facility] [address] [id number]. Gee Samuels NEUT # 6.7 103/ul Critically high 1.4-6.5 [facility] Comment on above: Performed By: #### C BC ####[facility] [address] [address]Dr. Gee Samuels Neutrophils/100 WBC (Bld) 70.2 % Normal 43.0-75.0 [facility] Comment on above: Performed By: #### C BC ####[facility] K[address] [place], [place] [address]Dr. Gee Samuels Platelet mean volume (Bld) [Entitic vol] 9.9 fL Normal 9.5-13.5 [facility] Comment on above: Performed By: #### C BC ####[facility] [address] [place], [place] [address]Dr. Gee Samuels PLT 293 103/ul Normal 150-450 [facility] Comment on above: Performed By: #### C BC ####[facility] [address] [place], [place] [address]Dr. Gee Samuels RBC 5.10 106/ul Normal 4.20-5.40 [facility] Comment on above: Performed By: #### C BC ####[facility] [address] [place], [place] [id number]. Gee Samuels WBC 9.5 103/ul Normal 4.0-11.0 [facility] Comment on above: Performed By: #### C BC ####[facility] [address] [place], [place] [id number] Gee Samuels ER URINE PROFILEon 2 Bilirubin Ql (U) SMALL Abnormal NEGATIVE [facility] Comment on above: Performed By: #### E RUR ####[facility] [address] [place], [place] [address]DrAvi Gee Arvind Clarity (U) CLEAR Normal CLEAR [facility] Comment on above: Performed By: #### E RUR ####[facility] A[address]et[address] [place], [place] [address]Dr. Gee Samuels Color (U) YELLOW Normal YELLOW [facility] Comment on above: Performed By: #### E RUR ####[facility] [address] [place], [place] [address]Dr. Gee Samuels ERUAHD A micrscopic examina tion will be performed if indicated. Normal [facility] Comment on above: Performed By: #### E RUR ####[facility] [address] [place], [place] [address]Dr. Gee Samuels Glucose Ql (U) Negative Normal NEGATIVE [facility] Comment on above: Performed By: #### E RUR ####[facility] [address] [place], [place] [address]Dr. Gee Samuels Hemoglobin Ql (U) Negative Normal NEGATIVE [facility] Comment on above: Performed By: #### E RUR ####[facility] [address] [place], [place] [address]Dr. Gee Samuels Ketones Ql (U) Negative Normal NEGATIVE [facility] Comment on above: Performed By: #### E RUR ####[facility] [address] [place], [place] [address]Dr. Gee Samuels LEUKOCYTES Negative Normal NEGATIVE [facility] Comment on above: Performed By: #### E RUR ####[facility] [address] [place], [place] [address]Dr. Gee Samuels Nitrite Ql (U) Negative Normal NEGATIVE [facility] Comment on above: Performed By: #### E RUR ####[facility] [address] [place], [place] [address]Dr. Gee Samuels pH (U) 5.0 [pH] Normal 5-9 [facility] Comment on above: Performed By: #### E RUR ####[facility] [address] [place], [place] [address]Dr. Gee Samuels SPEC GRAVITY 1.030 Abnormal 1.005-<=1. 025 [facility] Comment on above: Performed By: #### E RUR ####[facility] [address] [address]Dr. Gee Samuels UA PROTEIN Negative Normal NEGATIVE/ TRACE [facility] Comment on above: Performed By: #### E RUR ####[facility] [address] [id number]. Gee Samuels UR MICRO IND NOT INDICATED Normal [facility] Comment on above: Performed By: #### E RUR ####[facility] [address] [address]Dr. Gee Samuels Urobilinogen Qn (U) 0.2 {Avani'U}/dL Normal 0.2 - 1. 0 [facility] Comment on above: Performed By: #### E RUR ####[facility] [address] [address]Dr. Gee Samuels PROF CHEM 8 (BAS METB)on Anion gap [Moles/Vol] 13.7 mmol/L Normal [facility] Comment on above: Performed By: #### B MP #### [facility] [address] [address] [address] Gee Samuels Calcium [Mass/Vol] 8.9 mg/dL Normal 8.5-10.1 [facility] Comment on above: Performed By: #### B MP #### [facility] [address] [address] [address] Gee Samuels Chloride [Moles/Vol] 102 mmol/L Normal 98-107 [facility] Comment on above: Performed By: #### B MP #### [facility] [address] [address] [address] Gee Samuels CO2 [Moles/Vol] 24.6 mmol/L Normal 21.0-32.0 [facility] Comment on above: Performed By: #### B MP #### [facility] [address] [address] [address] Gee Samuels Creatinine [Mass/Vol] 1.03 mg/dL Critically high 0.55-1.02 [facility] Comment on above: Performed By: #### B MP #### [facility] [address] [address] [address] Gee Samuels EGFR-AF TURKMEN >60 Normal >=60 [facility] Comment on above: Performed By: #### B MP #### [facility] [address] [address] [address] Gee Samuels EGFR-NON AF TURKMEN 54 mL/min/1.73m2 Critically low >=60 [facility] Comment on above: Performed By: #### B MP #### [facility] [address] [address] [address] Gee Samuels Glucose [Mass/Vol] 183 mg/dL Critically high 74-106 [facility] Comment on above: Performed By: #### B MP #### [facility] [address] [address] [address] Gee Samuels Potassium [Moles/Vol] 4.3 mmol/L Normal 3.5-5.1 [facility] Comment on above: Performed By: #### B MP #### [facility] [address] [address] [address] Gee Samuels Sodium [Moles/Vol] 136 mmol/L Normal 136-145 [facility] Comment on above: Performed By: #### B MP #### [facility] [address] [address] [address] Gee Samuels Urea nitrogen [Mass/Vol] 19.0 mg/dL Critically high 7.0-18.0 [facility] Comment on above: Performed By: #### B MP #### [facility] [address] [address] [address] Gee Samuels Urea nitrogen/Creatinine [Mass ratio] 18.4 mg/mg Normal [facility] Comment on above: Performed By: #### B MP #### [facility] [address] [address] [address] Gee Samuels XR CHEST 1 Von 04-30-2022 XR CHEST 1 V EXAMINATION: XR CHES T 1 V HISTORY: COUGH COMPARISON: 06/02/2016 TECHNIQUE: Portable FINDINGS: LUNGS: No significant pulmonary parenchymal abnormalities. Low lung volume VASCULATURE: No increased pulmonary vasculature. PLEURA: No pneumothorax, effusion, or pleural thickening. CARDIAC: No cardiomegaly or cardiac silhouette abnormality. MEDIASTINUM: No visible mass or adenopathy. BONES: No fracture or visible bone lesion. OTHER: Negative. IMPRESSION: No acute disease. Electronically authenticated by: BERTRAM BECKFORD Date: 2022-04-30 13:25 Normal [facility] COVID-19 Positive/NegativeOr dered By: Reji Flanagan on 04-23-2022 SARS-CoV-2 (COVID-19) N gene DEEP+probe Ql (Resp) Negative Negative [facility] Comment on above: Testing for SARS-CoV -2 by RT-PCR This test was developed and its performance characteristics determined by [employer]) and validated at the [facility]. This test has not been FDA cleared or approved. This test has been authorized by FDA under an Emergency Use Authorization (EUA). This test has been validated in accordance with the FDA's Guidance Document (Policy for Diagnostics Testing in Laboratories Certified to Perform High Complexity Testing under CLIA prior to Emergency Use Authorization for Coronavirus Disease-2019 during the Public Health Emergency) issued on November 15, 2019. This test is only authorized for the duration of time the declaration that circumstances exist justifying the authorization of the emergency use of in vitro diagnostic tests for detection of SARS-CoV-2 virus and/or diagnosis of COVID-19 infection under section 564(b)(1) of the Act, 21 U.S.C. 360bbb-3(b)(1), unless the authorization is terminated or revoked sooner. Testing for SARS-CoV -2 by RT-PCRThis test was developed and its performance characteristics determined by [employer] ([employer]) and validated at the [facility]. This test has not been FDA cleared or approved. This test has been authorized by FDA under an Emergency Use Authorization (EUA). This test has been validated in accordance with the FDA's Guidance Document (Policy for Diagnostics Testing in Laboratories Certified to Perform High Complexity Testing under CLIA prior to Emergency Use Authorization for Coronavirus Disease-2019 during the Public Health Emergency) issued on November 15, 2019. This test is only authorized for the duration of time the declaration that circumstances exist justifying the authorization of the emergency use of in vitro diagnostic tests for detection of SARS-CoV-2 virus and/or diagnosis of COVID-19 infection under section 564(b)(1) of the Act, 21 U.S.C. 360bbb-3(b)(1), unless the authorization is terminated or revoked sooner. Basophils Auto (Bld) [#/Vol] Ordered By: Reji Flanagan on 04-13-2022 Basophils (Bld) [#/Vol] 0.0 10*3/uL 0.0-0.2 [facility] Basophils/100 WBC Auto (Bld) Ordered By: Reji Flanagan on 04-13-2022 Basophils/100 WBC (Bld) 0.9 % . [facility] Blood hemoglobin measurement (mass/volume)Ordered By: Reji Flanagan on 04-13-2022 Hemoglobin (Bld) [Mass/Vol] 11.6 g/dL 11.8-15.4 [facility] Blood leukocytes automated c ount (number/volume)Ordered By: Reji Flanagan on 04-13-2022 WBC (Bld) [#/Vol] 5.3 10*3/uL 4.5-11.0 [facility] Body fluid albumin measureme nt (mass/volume)Ordered By: Reji Flanagan on 04-13-2022 Albumin (Body fld) [Mass/Vol] 3.2 g/dL 3.2-5.5 [facility] Creatinine and Glomerular fi ltration rate.predicted panel (S/P/Bld)Ordered By: Reji Flanagan on 04-13-2022 Creatinine [Mass/Vol] 0.75 mg/dL 0.44-1.03 [facility] Eosinophils Auto (Bld) [#/Vo l]Ordered By: Reji Flanagan on 04-13-2022 Eosinophils (Bld) [#/Vol] 0.1 10*3/uL 0.0-0.45 [facility] Eosinophils/100 WBC Auto (Bl d)Ordered By: Reji Flanagan on 04-13-2022 Eosinophils/100 WBC (Bld) 2.8 % . [facility] Erythrocyte distribution wid th Auto (RBC) [Ratio]Ordered By: Reji Flanagan on 04-13-2022 Erythrocyte distribution width (RBC) [Ratio] 15.7 % 11.9-15.3 [facility] Estimated glomerular filtrat ion rate (GFR) non- AmericanOrdered By: Reji Flanagan on 04-13-2022 GFR/1.73 sq M.predicted among non-blacks MDRD (S/P/Bld) [Vol rate/Area] > 60 mL/Min [facility] Globulin Calc (S) [Mass/Vol] Ordered By: Reji Flanagan on 04-13-2022 Globulin (S) [Mass/Vol] 2.0 g/dL [facility] Hematocrit Auto (Bld) [Volum e fraction]Ordered By: Reji Flanagan on 04-13-2022 Hematocrit (Bld) [Volume fraction] 36.2 % 34.0-46.4 [facility] Laboratory - Hematology and Cell countsOrdered By: Reji Flanagan on 04-13-2022 Nucleated RBC/100 WBC (Bld) [Ratio] 0.0 % 0-0.5 [facility] Lymphocytes Auto (Bld) [#/Vo l]Ordered By: Reji Flanagan on 04-13-2022 Lymphocytes (Bld) [#/Vol] 1.7 10*3/uL 1.00-4.8 [facility] Lymphocytes/100 WBC Auto (Bl d)Ordered By: Reji Flanagan on 04-13-2022 Lymphocytes/100 WBC (Bld) 32.4 % . [facility] MCH Auto (RBC) [Entitic mass ]Ordered By: Reji Flanagan on 04-13-2022 MCH (RBC) [Entitic mass] 24.0 pg 24.7-34.3 [facility] MCHC Auto (RBC) [Mass/Vol]Or dered By: Reji Flanagan on 04-13-2022 MCHC (RBC) [Mass/Vol] 32.0 g/dL 32.0-35.0 [facility] MCV Auto (RBC) [Entitic vol] Ordered By: Reji Flanagan on 04-13-2022 MCV (RBC) [Entitic vol] 75.1 fL 80-100 [facility] Monocytes Auto (Bld) [#/Vol] Ordered By: Reji Flanagan on 04-13-2022 Monocytes (Bld) [#/Vol] 0.5 10*3/uL 0.0-0.8 [facility] Monocytes/100 WBC Auto (Bld) Ordered By: Reji Flanagan on 04-13-2022 Monocytes/100 WBC (Bld) 10.1 % . [facility] Neutrophils Auto (Bld) [#/Vo l]Ordered By: Reji Flanagan on 04-13-2022 Neutrophils (Bld) [#/Vol] 2.8 10*3/uL 1.8-7.7 [facility] Neutrophils/100 WBC Auto (Bl d)Ordered By: Reji Flanagan on 04-13-2022 Neutrophils/100 WBC (Bld) 53.8 % . [facility] No Panel InformationOrdered By: Reji Flanagan on 04-13-2022 Estimated GFR () > 60 mL/Min [facility] Comment on above: GFR estimated refere nce range: According to KDOQI guidelines, <60 ml/min/1.73m2 is sufficient to diagnose a patient with chronic kidney disease. Pharmacy Creatinine Clearance (Chem N/A [facility] Platelet mean volume Auto (B ld) [Entitic vol]Ordered By: Reji Flanagan on 04-13-2022 Platelet mean volume (Bld) [Entitic vol] 8.3 fL 6.3-10.7 [facility] Platelets Auto (Bld) [#/Vol] Ordered By: Reji Flanagan on 04-13-2022 Platelets (Bld) [#/Vol] 242 10*3/uL 150-450 [facility] Protein [Mass/volume] in Ser um or PlasmaOrdered By: Reji Flanagan on 04-13-2022 Protein [Mass/Vol] 5.2 g/dL 6.1-7.9 [facility] RBC Auto (Bld) [#/Vol]Ordere d By: Reji Flanagan on 04-13-2022 RBC (Bld) [#/Vol] 4.82 10*6/uL 3.60-5.00 [facility] Serum or plasma alanine poole otransferase measurement without P-5'-P (enzymatic activiOrdered By: Reji Flanagan on 04-13-2022 ALT No additional P-5'-P [Catalytic activity/Vol] 22 U/L 10-60 [facility] Serum or plasma albumin/glob ulin mass ratioOrdered By: Reji Flanagan on 04-13-2022 Albumin/Globulin [Mass ratio] 1.6 {ratio} [facility] Serum or plasma alkaline rosa m sphatase measurement (enzymatic activity/volume)Ordered By: Reji Flanagan on 04-13-2022 ALP [Catalytic activity/Vol] 61 U/L 32-92 [facility] Serum or plasma anion gap de terminationOrdered By: Reji Flanagan on 04-13-2022 Anion gap [Moles/Vol] 14.1 mmol/L 6.0-15.[address] [facility] Serum or plasma aspartate am inotransferase measurement (enzymatic activity/volume)Ordered By: Reji Flanagan on 04-13-2022 AST [Catalytic activity/Vol] 21 U/L 10-42 [facility] Serum or plasma calcium jenaro urement (mass/volume)Ordered By: Reji Flanagan on 04-13-2022 Calcium [Mass/Vol] 8.8 mg/dL 8.2-10.2 [facility] Serum or plasma chloride rell surement (moles/volume)Ordered By: Reji Flanagan on 04-13-2022 Chloride [Moles/Vol] 103 mmol/L 95-114 [facility] Serum or plasma glucose jenaro urement (mass/volume)Ordered By: Reji Flanagan on 04-13-2022 Glucose [Mass/Vol] 153 mg/dL 70-100 [facility] Comment on above: ADA recommended refe rence range Random Glucose Reference Range is dependent on time and content of last meal. Glucose of more than 200 mg/dL in a nonstressed, ambulatory subject supports the diagnosis of Diabetes Mellitus. Serum or plasma potassium me asurement (moles/volume)Ordered By: Reji Flanagan on 04-13-2022 Potassium [Moles/Vol] 4.7 mmol/L 3.5-5.1 [facility] Serum or plasma sodium measu rement (moles/volume)Ordered By: Reji Flanagan on 04-13-2022 Sodium [Moles/Vol] 136 mmol/L 136-146 [facility] Serum or plasma total biliru bin measurement (mass/volume)Ordered By: Reji Flanagan on 04-13-2022 Bilirubin [Mass/Vol] 0.5 mg/dL 0.3-1.2 [facility] Serum or plasma total carbon dioxide measurement (moles/volume)Ordered By: Reji Flanagan on 04-13-2022 CO2 [Moles/Vol] 23.6 mmol/L 22.0-30.0 [facility] Serum or plasma urea nitroge n measurement (mass/volume)Ordered By: Reji Flanagan on 04-13-2022 Urea nitrogen [Mass/Vol] 16 mg/dL 05-07 [facility] GLYCOHEMOGLOBIN A1Con 2021 ADA RECOMMENDATION SEE BELOW Normal [facility] Comment on above: Result Comment: ADA RECOMMENDED LIMIT 4.0 - 6.0 ADA THERAPEUTIC TARGET < 7.0 ACTION SUGGESTED > 7.0 Performed By: #### A 1C #### [facility] [address] [address] [address] Gee Samuels Glucose [Mass/Vol] 131 mg/dL Normal [facility] Comment on above: Performed By: #### A 1C #### [facility] [address] [address] [address] Gee Samuels HbA1c (Bld) [Mass fraction] 6.2 % Normal 4.5-6.2 [facility] Comment on above: Performed By: #### A 1C #### [facility] [address] [address] [address] Gee Samuels CBC AUTO DIFFon 11-09-2021 BASO # 0.0 103/ul Normal 0.0-0.1 [facility] Comment on above: Performed By: #### C BC #### [facility] [address] [address] [address] Gee Samuels Basophils/100 WBC (Bld) 0.6 % Normal 0.2-2.0 [facility] Comment on above: Performed By: #### C BC #### [facility] [address] [place] [address] Dr. Gee Samuels EO # 0.2 103/ul Normal 0.0-0.7 [facility] Comment on above: Performed By: #### C BC #### [facility] [address] [place] [address] Dr. Gee Samuels Eosinophils/100 WBC (Bld) 3.6 % Normal 0.9-7.0 [facility] Comment on above: Performed By: #### C BC #### [facility] [address] [place] [address] Dr. Gee Samuels Erythrocyte distribution width (RBC) [Ratio] 15.3 % Critically high 11.0-15.0 [facility] Comment on above: Performed By: #### C BC #### [facility] [address] [place] [address] Dr. Gee Samuels Hematocrit (Bld) [Volume fraction] 40.9 % Normal 36.0-48.0 [facility] Comment on above: Performed By: #### C BC #### [facility] [address] [place] [address] Dr. Gee Samuels Hemoglobin (Bld) [Mass/Vol] 12.3 g/dL Normal 12.0-16.0 [facility] Comment on above: Performed By: #### C BC #### [facility] [address] [place] [address] Dr. Gee Samuels IG # 0.01 10e3/ul Normal 0.00-0.03 [facility] Comment on above: Performed By: #### C BC #### [facility] [address] [place] [address] Dr. Gee Samuels IG % 0.2 % Normal 0.0-0.5 [facility] Comment on above: Performed By: #### C BC #### [facility] [address] [place] [address] Dr. Gee Samuels LYMPH # 2.1 103/ul Normal 1.2-3.8 [facility] Comment on above: Performed By: #### C BC #### [facility] [address] [place] [address] Dr. Gee Samuels Lymphocytes/100 WBC (Bld) 33.3 % Normal 20.5-60.0 [facility] Comment on above: Performed By: #### C BC #### [facility] [address] [place] [address] Dr. Gee Samuels MANUAL DIFF REQ NO Normal [facility] Comment on above: Performed By: #### C BC #### [facility] [address] [place] [address] Dr. Gee Samuels MCH (RBC) [Entitic mass] 24.2 pg Critically low 26.7-34.0 [facility] Comment on above: Performed By: #### C BC #### [facility] [address] [place] [address] Dr. Gee Samuels MCHC (RBC) [Mass/Vol] 30.1 g/dL Normal 29.9-35.2 [facility] Comment on above: Performed By: #### C BC #### [facility] [address] [place] [address] Dr. Gee Samuels MCV (RBC) [Entitic vol] 80.4 fL Critically low 81.0-99.0 [facility] Comment on above: Performed By: #### C BC #### [facility] [address] [place] [address] Dr. Gee Samuels MONO # 0.5 103/ul Normal 0.3-0.8 [facility] Comment on above: Performed By: #### C BC #### [facility] [address] [place] [address] Dr. Gee Samuels Monocytes/100 WBC (Bld) 7.2 % Normal 1.7-12.0 [facility] Comment on above: Performed By: #### C BC #### [facility] [address] [place] [address] Dr. Gee Samuels NEUT # 3.5 103/ul Normal 1.4-6.5 [facility] Comment on above: Performed By: #### C BC #### [facility] [address] [place] [address] Dr. Gee Samuels Neutrophils/100 WBC (Bld) 55.1 % Normal 43.0-75.0 [facility] Comment on above: Performed By: #### C BC #### [facility] [address] [address] [address] Gee Samuels Platelet mean volume (Bld) [Entitic vol] 10.8 fL Normal 9.5-13.5 [facility] Comment on above: Performed By: #### C BC #### [facility] [address] [address] [address] Gee Samuels PLT 330 103/ul Normal 150-450 [facility] Comment on above: Performed By: #### C BC #### [facility] [address] [address] [address] Gee Samuels RBC 5.09 106/ul Normal 4.20-5.40 [facility] Comment on above: Performed By: #### C BC #### [facility] [address] [address] [address] Gee Samuels WBC 6.4 103/ul Normal 4.0-11.0 [facility] Comment on above: Performed By: #### C BC #### [facility] [address] [place] [address] Dr. Gee Samuels FREE T3on 11-09-2021 FREE T3 2.41 pg/mlL Critically low 2.77-5.27 [facility] Comment on above: Performed By: #### F T3, LIVER, LIPID, BMP, TSH ####[facility] [address] [address]Dr. Gee Samuels FREE T4on 11-09-2021 Free T4 [Mass/Vol] 1.25 ng/dL Normal 0.78-2.19 [facility] Comment on above: Performed By: #### F T4, VITAD #### [facility] [address] [address] [address] Gee Samuels GLYCOHEMOGLOBIN A1Con 2021 ADA RECOMMENDATION ADA THERAPEUTIC TARG ET 6.0 - 7.0 ACTION SUGGESTED > 7.0 Normal [facility] Comment on above: Performed By: #### A 1C ####[facility] [address] [id number]. Gee Samuels Glucose [Mass/Vol] 140 mg/dL Normal [facility] Comment on above: Performed By: #### A 1C ####[facility] [address] [id number]. Gee Samuels HbA1c (Bld) [Mass fraction] 6.5 % Critically high <=6.0 [facility] Comment on above: Performed By: #### A 1C ####[facility] [address] [id number]. Gee Samuels LIPID PROFILEon 11-09-2021 CHOL-HDL RATIO NORM SEE BELOW Normal [facility] Comment on above: Result Comment: 3.3 - 4.4 LOW RISK 4.4 - 7.1 AVERAGE RISK 7.1 - 11.0 MODERATE RISK >11.0 HIGH RISK Performed By: #### F T3, LIVER, LIPID, BMP, TSH ####[facility] [address] [id number]. Gee Samuels Cholesterol [Mass/Vol] 123 mg/dL Normal <=200 [facility] Comment on above: Performed By: #### F T3, LIVER, LIPID, BMP, TSH ####[facility] [address] [id number]. Gee Samuels Cholesterol in HDL [Mass/Vol] 34 mg/dL Critically low 40-60 [facility] Comment on above: Performed By: #### F T3, LIVER, LIPID, BMP, TSH ####[facility] [address] [id number]. Gee Samuels Cholesterol in LDL [Mass/Vol] 25.8 mg/dL Normal [facility] Comment on above: Performed By: #### F T3, LIVER, LIPID, BMP, TSH ####[facility] [address] [id number]. Gee Samuels Cholesterol.total/Cho lesterol in HDL [Mass ratio] 3.6 {ratio} Normal [facility] Comment on above: Performed By: #### F T3, LIVER, LIPID, BMP, TSH ####[facility] [address] [id number]. Lindseyalexi Samuels HDL NORMAL > or = 60 mg/dl - LO W CARDIOVASCULAR RISK <40 mg/dl - HIGH CARDIOVASCULAR RISK Normal [facility] Comment on above: Performed By: #### F T3, LIVER, LIPID, BMP, TSH ####[facility] [address] [address]Dr. Lindseyalexi Samuels LDL CALC NORMAL SEE BELOW Normal [facility] Comment on above: Result Comment: <100 mg/dl OPTIMAL 100 - 129 mg/dl NEAR OR ABOVE OPTIMAL 130 - 159 mg/dl BORDERLINE HIGH 160 - 189 mg/dl HIGH >190 mg/dl VERY HIGH Performed By: #### F T3, LIVER, LIPID, BMP, TSH ####[facility] [address] [address]Dr. Gee Samuels Triglyceride [Mass/Vol] 316 mg/dL Critically high <=150 [facility] Comment on above: Performed By: #### F T3, LIVER, LIPID, BMP, TSH ####[facility] [address] [address]Dr. Gee Samuels VLDL CALC 63.2 mg/dL Normal [facility] Comment on above: Performed By: #### F T3, LIVER, LIPID, BMP, TSH ####[facility] [address] [address]Dr. Gee Samuels LIVER PROFILEon 11-09-2021 Albumin [Mass/Vol] 4.0 g/dL Normal 3.4-5.0 [facility] Comment on above: Performed By: #### F T3, LIVER, LIPID, BMP, TSH ####[facility] [address] [address]Dr. Gee Samuels Albumin/Globulin [Mass ratio] 1.3 {ratio} Normal [facility] Comment on above: Performed By: #### F T3, LIVER, LIPID, BMP, TSH ####[facility] [address] [address]Dr. Gee Samuels ALP [Catalytic activity/Vol] 81 U/L Normal 46-116 [facility] Comment on above: Performed By: #### F T3, LIVER, LIPID, BMP, TSH ####[facility] [address] [address]Dr. Gee Samuels ALT [Catalytic activity/Vol] 27 U/L Normal 14-59 [facility] Comment on above: Performed By: #### F T3, LIVER, LIPID, BMP, TSH ####[facility] [address] [address]Dr. Gee Samuels AST [Catalytic activity/Vol] 15 U/L Normal 15-37 [facility] Comment on above: Performed By: #### F T3, LIVER, LIPID, BMP, TSH ####[facility] [address] [place], [place] [address]Dr. Gee Samuels BILI, CONJUGATED 0.1 mg/dL Normal 0.0-0.3 [facility] Comment on above: Performed By: #### F T3, LIVER, LIPID, BMP, TSH ####[facility] [address] [place], [place] [address]Dr. Gee Samuels Bilirubin [Mass/Vol] 0.3 mg/dL Normal 0.2-1.3 [facility] Comment on above: Performed By: #### F T3, LIVER, LIPID, BMP, TSH ####[facility] [address] [address]Dr. Gee Samuels Globulin (S) [Mass/Vol] 3.1 g/dL Normal [facility] Comment on above: Performed By: #### F T3, LIVER, LIPID, BMP, TSH ####[facility] [address] [address]Dr. Gee Samuels Protein [Mass/Vol] 7.1 g/dL Normal 6.1-8.2 [facility] Comment on above: Performed By: #### F T3, LIVER, LIPID, BMP, TSH ####[facility] [address] [address]Dr. Gee Samuels PROF CHEM 8 (BAS METB)on Anion gap [Moles/Vol] 14.6 mmol/L Normal [facility] Comment on above: Performed By: #### F T3, LIVER, LIPID, BMP, TSH ####[facility] [address] [address]Dr. Gee Samuels Calcium [Mass/Vol] 8.6 mg/dL Normal 8.5-10.1 [facility] Comment on above: Performed By: #### F T3, LIVER, LIPID, BMP, TSH ####[facility] [address] [address]Dr. Gee Sameuls Chloride [Moles/Vol] 103 mmol/L Normal 98-107 [facility] Comment on above: Performed By: #### F T3, LIVER, LIPID, BMP, TSH ####[facility] [address] [place], [place] [address]Dr. Gee Samuels CO2 [Moles/Vol] 25.8 mmol/L Normal 22.0-30.0 [facility] Comment on above: Performed By: #### F T3, LIVER, LIPID, BMP, TSH ####[facility] [address] [address]Dr. Gee Samuels Creatinine [Mass/Vol] 0.92 mg/dL Normal 0.52-1.04 [facility] Comment on above: Performed By: #### F T3, LIVER, LIPID, BMP, TSH ####[facility] [address] [address]Dr. Gee Samuels EGFR-AF TURKMEN >60 Normal >=60 [facility] Comment on above: Performed By: #### F T3, LIVER, LIPID, BMP, TSH ####[facility] [address] [address]Dr. Gee Samuels EGFR-NON AF TURKMEN >60 Normal >=60 [facility] Comment on above: Performed By: #### F T3, LIVER, LIPID, BMP, TSH ####[facility] [address] [address]Dr. Gee Samuels Glucose [Mass/Vol] 150 mg/dL Critically high 74-106 T [facility] Comment on above: Performed By: #### F T3, LIVER, LIPID, BMP, TSH ####[facility] [address] [id number]. Gee Samuels Potassium [Moles/Vol] 4.4 mmol/L Normal 3.4-5.0 [facility] Comment on above: Performed By: #### F T3, LIVER, LIPID, BMP, TSH ####[facility] [address] [address]Dr. Gee Samuels Sodium [Moles/Vol] 139 mmol/L Normal 137-145 [facility] Comment on above: Performed By: #### F T3, LIVER, LIPID, BMP, TSH ####[facility] [address] [address]Dr. Gee Samuels Urea nitrogen [Mass/Vol] 28.0 mg/dL Critically high 7.0-18.0 [facility] Comment on above: Performed By: #### F T3, LIVER, LIPID, BMP, TSH ####[facility] [address] [address]Dr. Gee Samuels Urea nitrogen/Creatinine [Mass ratio] 30.4 mg/mg Normal [facility] Comment on above: Performed By: #### F T3, LIVER, LIPID, BMP, TSH ####[facility] [address] [address]Dr. Gee Samuels TSHon 11-09-2021 TSH 0.237 uIU/mL Critically low 0.470-4.68 0 [facility] Comment on above: Performed By: #### F T3, LIVER, LIPID, BMP, TSH ####[facility] [address] [address]Dr. Gee Samuels TSH RANGE SEE BELOW Normal [facility] Comment on above: Result Comment: <0.3 4 UIU/ml HYPERTHYROID 0.34-5.60 UIU/ml EUTHYROID >5.60 UIU/ml HYPOTHYROID Performed By: #### F T3, LIVER, LIPID, BMP, TSH ####[facility] [address] [address]Dr. Gee Samuels VITAMIN D 25 OHon 11-09-2021 VIT D 25-OH 33.9 ng/mL Normal [facility] Comment on above: Performed By: #### F T4, VITAD #### [facility] [address] [address] [address] Gee Samuels VIT D RANGES SEE BELOW Normal [facility] Comment on above: Result Comment: <20 ng/mL Vit D deficient 20 - <30 ng/mL Vit D insufficient 30 - 100 ng/mL Vit D sufficient >100 ng/mL Potential Toxicity Performed By: #### F T4, VITAD #### [facility] [id number] Gee Samuels [facility] MIBI SPECT REST OR STRES S ONLYon 02-10-2021 [facility] MIBI SPECT REST OR STRESS ONLY Patient Name: ROSA MARIA SIEGEL STUDY: MYOCARDIAL PERFUSION STRESS TEST WITH LEXISCAN Performing facility: [facility], [address] [place] [address], [address], [address] Provider: Sweta Crowell DO, FACC PCP: Dr. Jeffries Supervising provider: Sweta Yeung MD, FACC INDICATION: Chest Pain; Diabetes mellitus HISTORY: Gender: F; Age: 60 y/o ; Height: 162.56 cm; Weight: 136.04351 kg. High Cholesterol; CAD; Diabetes; Previous [place]; Chest Pain; Denies smoking. COMPARISON: Previous nuclear testing completed at . ACCESSION NUMBER(S): [id number]; [id number]; [id number] ORDERING CLINICIAN: FABY CROWELL TECHNIQUE: TWO DAY protocol. Stress injection: Date:02-10-21, 35.5 mCi of Myoview IV 20 seconds after rapid injection of Lexiscan. Rest injection: Date: 02-11-21, 35.7 mCi of Myoview IV at rest. The patient had a rapid injection of 0.4 mg of Lexiscan IV over 10 seconds. Imaging was performed by gated tomographic technique. Reason for Lexiscan: uses walker/cane STRESS TEST DATA: Resting heart rate was 66 BPM. Resting blood pressure was 112/74 mmHg. Peak blood pressure was 104/60 mmHg. Peak heart rate was 87 BPM. TEST TERMINATED DUE TO: Protocol completed NO REST SCAN DUE TO CLAUSTROPHOBIA FINDINGS: STRESS TEST RESULTS: Resting electrocardiogram revealed normal sinus rhythm without ST-T changes. There were no significant ischemic ECG changes or dysrhythmias. The patient did not have chest pains/symptoms during procedure. There was a normal recovery phase. IMAGING RESULTS: This is stress only study. Unfortunately after injecting the patient with the rest images he was unable to tolerate acquisition due to severe claustrophobia only stress images available to review Stress images showed normal perfusion. LVEF is normal round 65%. Minor attenuation was seen IMPRESSION: Normal Lexiscan Myoview cardiac perfusion stress test. No evidence of ischemia or myocardial infarction by perfusion imaging. Normal left ventricular systolic function, ejection fraction 65%. Please note only stress images were available to review. Rest images could not be performed due to severe claustrophobia. Electronically signed by: ARIELA VALVERDE MD [facility] 08-03-2017 Provider Orders [id number]#1.00[facility] Coding Summaryon 07-28-2017 Coding Summary CODING DATE: 017 [facility] STATUS: Home PAYOR: Medicaid HMO ADMIT DX: REASON FOR VISIT DX: C67.9 Malignant neoplasm of bladder, unspecified FINAL DX: PRINCIPAL: C67.9 Malignant neoplasm of bladder, unspecified SECONDARY: E11.9 Type 2 diabetes mellitus without complications K76.0 Fatty (change of) liver, not elsewhere classified N20.0 Calculus of kidney PROCEDURES DOCTOR NAME DATE NOTE: The code number assigned matches the documented diagnosis and / or procedure in the patient's chart. However, the narrative phrase printed from the coding software may appear abbreviated, or result in slightly different terminology. Coded By: Olivia Mckee Date Saved: 07/28/2017 06:[address] [facility] Medication Managementon 07-15 Medication Management [id number]#1.00OTGT[facility] [id number]. [id number]#1.00OTGT[facility] BUN/Creat Ratioon 07-27-2017 eGFR (non-black) 58 mL/min/{1.73_m2} Invalid Interpretation Code [facility] Comment on above: Performed By: #### 2 [id number], 3893411, [id number], [id number], [id number], [id number] ####[place] (DEFAULT)[address] [place] [address] eGFR (non-black) mL/min/{1.73_m2} Invalid Interpretation Code [facility] Comment on above: Result Comment: Manager Advertising ana m Kidney disease could be indicated at eGFRs of less than 60 ml/min/1.73m2. Kidney Failure is indicated at less than 15 ml/min/1.73m2 Performed By: #### 2 040654, 3415725, [id number], 57471401, [id number], [id number] ####[place] (DEFAULT)[address] [place] [address] BUN/Creatinine Ratio 28.0 mg/mg High 4.6-16.2 [facility] Comment on above: Performed By: #### 2 157688, 1216624, 34925950, 84735951, [id number], [id number] ####[place] (DEFAULT)[address] [place] [address] Creatinine 0.98 mg/dL Normal 0.60-1.30 [facility] Comment on above: Performed By: #### 2 991218, 8746935, 56207676, 81139050, [id number], [id number] ####[place] (DEFAULT)[address] [place] [address] Urea nitrogen 27 mg/dL High 8-26 [facility] Comment on above: Performed By: #### 2 579903, 6240577, 53711713, 47876865, 228598141, [id number] ####[place] (DEFAULT)[address] [place] [address] CT Abdomen/Pelvis w/o Contra vic 07-27-2017 CT Abdomen/Pelvis w/o Contrast CT ABDOMEN AND CT PELVIS WITHOUT CONTRASTCLINICAL DATA: History of bladder and breast carcinoma, left upper and lowerquadrant lower abdominal and pelvic pain for one year. Dose reductiontechnique was utilized for these studies.CT abdomen study was performed without the use of intravenous and with oralcontrast. The study was compared to the report from prior exam performed atan outside institution dated 10/23/2015. Areas of mild reticular prominenceare noted in the lower lung leo compatible with mild atelectatic and/orfibrotic changes. There is mild focal pleural thickening in the left lowerlung field laterally. There is retained oral contrast in the distalesophagus, nonspecific, correlate for possible mild gastroesophageal reflux.Views of the liver and spleen fail to demonstrate evidence of focal mass ineither organ. There is mild to moderate decreased attenuation of the livercompatible with fatty infiltration. No evidence of dilated intrahepatic bileducts are identified. The patient is status post cholecystectomy. Pancreasand adrenal glands appear unremarkable. Bowel loops are within normallimits. There is a small 2 mm nonobstructive calculus in the inferior leftkidney. There is a small 0.6 cm area of fat density within the lateral aspectof the left kidney compatible with a small lipoma or angiomyolipoma. Tiny 3mm area of decreased density is seen in the anterior left kidney too small toqualify with certainty though most likely representing a cyst. No evidence ofureteral calculus. No evidence of obstructive uropathy.CT pelvis study was performed without the use of intravenous and with oralcontrast. The study was compared to the report from prior exam performed ata outside institution dated 10/23/2015. Bladder is somewhat contracted,there is no obvious bladder mass or wall thickening. Uterus appears grosslyunremarkable. There are a few calcifications compatible with phleboliths.Pararectal fat planes are intact. Bowel loops are grossly unremarkable.Areas of mild atherosclerotic calcification are noted in the common iliacarteries. No evidence of aneurysm. No evidence of adenopathy. The appendixis suggested and appears unremarkable. There are mild to moderatedegenerative changes in the visualized lower dorsal spine and in the lumbarspine. There is out pouching of the anterior pelvic wall at the periumbilicallevel without lora hernia.IMPRESSION:1. CT ABDOMEN AND CT PELVIS STUDIES DEMONSTRATE MILD TO MODERATE FATTYINFILTRATION OF THE LIVER.2. FINDINGS COMPATIBLE WITH A TINY NONOBSTRUCTIVE 2 MM CALCULUS IN THEINFERIOR LEFT KIDNEY.3. 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 BLADDER APPEARS GROSSLY UNREMARKABLE.5. A MILD DEGREE OF RETAINED ORAL CONTRAST IN THE DISTAL ESOPHAGUS,NONSPECIFIC, CORRELATE FOR POSSIBLE MILD GASTROESOPHAGEAL REFLUX.AIDEE JamisonB #: [id number]: 07/27/2017T: 07/27/2017 Final Dictated by: Sanjay Del Angel MD DT/TM: 07/27/17 11:32Signed (Electronic Signature): Sanjay Del Angel MD 07/27/17 1:15 pmTechnologist: MONIQUE LY [facility] Comment on above: Order Comment: PT AL LERGIC TO SHELLFISH.SPOKE WITH DR HUTTON'S OFFICE WHO SPOKE WITH HIM. DO CT WITHOUT IV CONTRAST. OFFICE IS FAXING NEW ORDER.CAROLE/[id number] ON 07/27/2017 XR Chest 2 Viewson 7 XR Chest 2 Views CHEST TWO VIEWSCLINI CRISS DATA: History of bladder and breast carcinoma, requiredpreoperative chest clearance prior to bladder procedurePA and lateral views of the chest were obtained. No acute infiltrate orconsolidations are seen. There are mild to moderate degenerative changes inthe dorsal spine with areas of ankylosis, there is slight convexity of thedorsal spine to the right.IMPRESSION: NO ACUTE PROCESS SEEN IN THE CHEST.AIDEE JamisonB #: [id number]: 07/27/2017T: 07/27/2017 Final Dictated by: Sanjay Del Angel MD DT/TM: 07/27/17 10:21Signed (Electronic Signature): Sanjay Del Angel MD 07/27/17 1:15 pmTechnologist: VICKIE [facility] Provider [place] 07-22-2017 Provider Orders [id number]#1.00OT[facility] [place] 07-18-2017 Provider Orders [id number]#1.00OT[facility] Coding Summaryon 06-14-2017 Coding Summary CODING DATE: 017 [facility] STATUS: Home PAYOR: Medicaid HMO ADMIT DX: REASON FOR VISIT DX: E89.0 Postprocedural hypothyroidism FINAL DX: PRINCIPAL: E89.0 Postprocedural hypothyroidism SECONDARY: PROCEDURES DOCTOR NAME DATE NOTE: The code number assigned matches the documented diagnosis and / or procedure in the patient's chart. However, the narrative phrase printed from the coding software may appear abbreviated, or result in slightly different terminology. Revised Coded By: Olivia Mckee Revised Date Saved: 03/04/2017 01:[address] [facility] Coding Summaryon 03-04-2017 Coding Summary CODING DATE: 017 [facility] STATUS: Home PAYOR: Medicaid HMO ADMIT DX: REASON FOR VISIT DX: E89.0 Postprocedural hypothyroidism FINAL DX: PRINCIPAL: E89.0 Postprocedural hypothyroidism SECONDARY: PROCEDURES DOCTOR NAME DATE NOTE: The code number assigned matches the documented diagnosis and / or procedure in the patient's chart. However, the narrative phrase printed from the coding software may appear abbreviated, or result in slightly different terminology. Coded By: Olivia Mckee Date Saved: 03/04/2017 01:[address] [facility] T3 Free LCon 03-03-2017 Triiodothyronine,Free ,Serum LC 3.5 pg/mL Invalid Interpretation Code 2.0-4.4 [facility] Comment on above: Result Comment: [facility] [place], [place] [id number] Vincent PhD Ph:[phone] Performed By: #### 2 619901, 4490252, 20738789, 37026707, [id number], [id number] ####[place] (DEFAULT[address] [place] [address] T3 Total LCon 03-03-2017 Triiodothyronine (T3) LC 129 ng/dL Invalid Interpretation Code 71-180 [facility] Comment on above: Result Comment: Perf ormed At: [facility] [place], [place] [id number] Vincent PhD Ph:[phone] Performed By: #### 2 876355, 6147106, 56082326, 94208267, [id number], [id number] ####[place] (DEFAULT)[address] [place] [address] Thyroglobulin Reflex Profile LCon 03-03-2017 Globulin g/dL Low 1.5-38.5 [facility] Comment on above: Result Comment: Thyr oglobulin Antibody measured by [facility] [email or web address] At: [facility] [address] [place], [place] [id number] Vincent PhD Ph:[phone] Performed By: #### 2 943409, 8546369, 56937454, 78800201, [id number], [id number] ####[place] (DEFAULT)[address] [place] [address] Result Comment: Acco rding to the [employer] Academy of Clinical Biochemistry,the reference interval for Thyroglobulin (TG) should berelated to euthyroid patients and not for patients whounderwent thyroidectomy. TG reference intervals for thesepatients depend on the residual mass of the thyroid tissueleft after surgery. Establishing a post-operative baselineis recommended. The assay limit of quantitation is 0.1ng/mL Thyroglobulin measured by [facility] ImmunometricAssayPerformed At: [id number] [place], [place] [id number] Vincent PhD Ph:[phone] Free T4on 03-02-2017 Thyroxine (T4) free 1.23 ng/dL High 0.61-1.12 [facility] Comment on above: Result Comment: Spec imens that contain high levels of Biotin may cause false high results Performed By: #### 2 [id number], [id number], [id number], [id number] ####[place] (DEFAULT)[address] [place] [id number] TSHon 03-02-2017 Thyroid stimulating hormone (TSH) 0.01 mcIU/mL Low 0.45-5.33 [facility] Comment on above: Result Comment: Gene ral Population (males and non- females, aged 21-88) 0.45 - 5.33 Females, 1st Trimester 0.05 - 3.70 Females, 2nd Trimester 0.31 - 4.35 Females, 3rd Trimester 0.41 - 5.18 Performed By: #### 2 [id number], [id number], [id number] ####[place] ([facility])[address] [place] [address] Vital Signs Date Time Vital Sign Value Performing Clinician Facility 01-30-2024 15:05-0400 Body height 162.6 cm Swapna James MD Work Phone: [facility] 01-30-2024 15:05-0400 Body mass index (BMI) [Ratio] 56.64 kg/m2 Swapna James MD Work Phone: [facility] 01-30-2024 15:05-0400 Body weight 149.69 kg Swapna James MD Work Phone: [facility] 05-06-2023 13:38-0400 Diastolic blood pressure 85 mm[Hg] MD Raghav Jeffries Work Phone: [facility] 05-06-2023 13:38-0400 Heart rate 85 /min MD Raghav Jeffries Work Phone: [facility] 05-06-2023 13:38-0400 Respiratory rate 14 /min MD Raghav Jeffries Work Phone: [facility] 05-06-2023 13:38-0400 SaO2% (BldA) [Mass fraction] 95 % MD Raghav Jeffries Work Phone: [facility] 05-06-2023 13:38-0400 Systolic blood pressure 167 mm[Hg] MD Raghav Jeffries Work Phone: [facility] 05-06-2023 11:45-0400 Body height 162.56 cm MD Raghav Jeffries Work Phone: [facility] 05-06-2023 11:45-0400 Body temperature 98.2 [degF] MD Raghav Jeffries Work Phone: [facility] 05-06-2023 11:45-0400 Body weight 136.07 kg MD Raghav Jeffries Work Phone: [facility] 04-13-2023 13:00-0400 Body height 162.56 cm Imad Asaad Other [facility] Other 04-13-2023 13:00-0400 Body mass index (BMI) [Ratio] 51.49 kg/m2 Imad Asaad Other [facility] Other 04-13-2023 13:00-0400 Body weight 136.08 kg Imad Asaad Other [facility] Other 04-13-2023 13:00-0400 Diastolic blood pressure 69 mm[Hg] Imad Asaad Other [facility] Other 04-13-2023 13:00-0400 Systolic blood pressure 115 mm[Hg] Imad Asaad Other [facility] Other 04-21-2022 14:30-0400 Body height 162.56 cm Kalyan Kingsley Other [facility] Other 04-21-2022 14:30-0400 Body mass index (BMI) [Ratio] 59.62 kg/m2 Kalyan Kingsley Other [facility] Other 04-21-2022 14:30-0400 Body weight 157.58 kg Kalyan Kingsley Other [facility] Other 04-21-2022 14:30-0400 Diastolic blood pressure 70 mm[Hg] Kalyan Kingsley Other [facility] Other 04-21-2022 14:30-0400 Respiratory rate 18 /min Kalyan Kingsley Other [facility] Other 04-21-2022 14:30-0400 SaO2% (BldA) [Mass fraction] 96 % Kalyan Kingsely Other [facility] Other 04-21-2022 14:30-0400 Systolic blood pressure 137 mm[Hg] Kalyan Kingsley Other [facility] Other 04-13-2022 12:51-0400 Body height 162.56 cm MD Raghav Jeffries Work Phone: [facility] 04-13-2022 12:51-0400 Body temperature 99 [degF] MD Raghav Jeffries Work Phone: [facility] 04-13-2022 12:51-0400 Body weight 160 kg MD Raghav Jeffries Work Phone: [facility] 04-13-2022 12:51-0400 Diastolic blood pressure 77 mm[Hg] MD Raghav Jeffries Work Phone: [facility] 04-13-2022 12:51-0400 Heart rate 78 /min MD Raghav Jeffries Work Phone: [facility] 04-13-2022 12:51-0400 Respiratory rate 20 /min MD Raghav Jeffries Work Phone: [facility] 04-13-2022 12:51-0400 SaO2% (BldA) [Mass fraction] 94 % MD Raghav Jeffries Work Phone: [facility] 04-13-2022 12:51-0400 Systolic blood pressure 169 mm[Hg] MD Raghav Jeffries Work Phone: [facility] 04-12-2022 15:45-0400 Body height 162.56 cm Reji Flanagan Other [facility] Other 04-12-2022 15:45-0400 Body mass index (BMI) [Ratio] 59.9 kg/m2 Reji Flanagan Other [facility] Other 04-12-2022 15:45-0400 Body weight 158.31 kg Reji Flanagan Other [facility] Other 03-01-2022 10:30-0400 Body height 162.56 cm Kalyan Kingsley Other [facility] Other 03-01-2022 10:30-0400 Body mass index (BMI) [Ratio] 60 kg/m2 Kalyan Kingsley Other [facility] Other 03-01-2022 10:30-0400 Body weight 158.58 kg Kalyan Kingsley Other [facility] Other 03-01-2022 10:30-0400 Diastolic blood pressure 54 mm[Hg] Kalyan Kingsley Other [facility] Other 03-01-2022 10:30-0400 Respiratory rate 18 /min Kalyan Kingsley Other [facility] Other 03-01-2022 10:30-0400 SaO2% (BldA) [Mass fraction] 98 % Kalyan Kingsley Other [facility] Other 03-01-2022 10:30-0400 Systolic blood pressure 109 mm[Hg] Kalyan Kingsley Other [facility] Other 12-10-2021 11:45-0400 Body height 162.56 cm Garrison Dave Other [facility] Other 12-10-2021 11:45-0400 Body mass index (BMI) [Ratio] 56.64 kg/m2 Garrison Dave Other [facility] Other 12-10-2021 11:45-0400 Body temperature 97.5 [degF] Garrison Dave Other [facility] Other 12-10-2021 11:45-0400 Body weight 149.69 kg Garrison Dave Other [facility] Other 12-10-2021 11:45-0400 Diastolic blood pressure 60 mm[Hg] Garrison Acosta Other [facility] Other 12-10-2021 11:45-0400 SaO2% (BldA) [Mass fraction] 95 % Garrison Dave Other [facility] Other 12-10-2021 11:45-0400 Systolic blood pressure 120 mm[Hg] Garrison Acosta Other [facility] Other Encounters Encounter Date Encounter Type Care Provider Facility Start: 04-11-2024 End: 04-11-2024 ambulatory OSAMA REHANA bermudez Start: 04-02-2024 ambulatory OSAMA REHANA [facility] Start: 01-30-2024 End: 01-30-2024 Office outpatient new 30 minutes Swapna James MD Work Phone: Formerly named [facility] Comment on above: Chronic otitis media of both ears (Primary Dx); Conductive hearing loss, bilateral Start: 01-30-2024 End: 01-30-2024 ambulatory [facility] Start: 11-28-2023 End: 11-28-2023 ambulatory [facility] Start: 10-17-2023 End: 10-17-2023 ambulatory [facility] Start: 10-10-2023 End: 10-10-2023 ambulatory OLAMIDE SMITH [facility] Start: 09-06-2023 End: 09-06-2023 ambulatory MARTY MARQUEZ [facility] Start: 09-04-2023 End: 09-05-2023 [facility] Start: 09-04-2023 End: 09-05-2023 [facility] Start: 06-10-2023 End: 06-11-2023 ambulatory Freddy CARR Facility:[facility] Start: 06-10-2023 End: 06-10-2023 Patient encounter procedure Freddy CARR [facility] Start: 05-06-2023 End: 05-06-2023 ambulatory Imad Asaad Facility:[facility] Start: 05-06-2023 End: 05-06-2023 Admission to same day surgery center MD Raghav Jeffries Work Phone: [facility] Work Phone: Start: 05-06-2023 End: 05-06-2023 ambulatory MD Raghav Jeffries Work Phone: [facility] Work Phone: Start: 04-13-2023 End: 04-13-2023 ambulatory Imad Asaad Other [facility] Other Start: 04-13-2023 Office outpatient new 45 minutes Imad Asaad [facility] Start: 03-25-2023 ambulatory Freddy CARR Facility :[facility] Start: 07-17-2022 End: 07-17-2022 ambulatory Elle Walton Facility:[facility] Start: 07-17-2022 End: 07-17-2022 ambulatory MD Raghav Jeffries Work Phone: [facility] Work Phone: Start: 07-17-2022 End: 07-17-2022 Departed Referred MD Raghav Jeffries Work Phone: [facility] [place] Start: 06-09-2022 End: 06-09-2022 ambulatory Kalyan Kingsley Other [facility] Other Start: 06-09-2022 Telephone encounter Kalyan Kingsley [facility] Start: 05-20-2022 End: 05-20-2022 ambulatory SPRING CRAWFORD Facility:[facility] Start: 05-17-[address] RAGHAV JEFFRIES Facil ity:[facility]1 Start: 04-30-2022 End: 04-30-2022 ambulatory PEDRO PUENTE Facility:[facility] Start: 04-27-2022 End: 04-27-2022 Departed Referred MD Raghav Jeffries Work Phone: [facility] [place] Start: 04-26-2022 End: 04-26-2022 ambulatory Reji Flanagan Other [place] [facility] Other Start: 04-26-2022 Telephone encounter [facility] Start: 04-23-2022 End: 04-23-2022 Patient encounter procedure MD Raghav Jeffries Work Phone: [facility] Start: 04-21-2022 Registered Recurring MD Raghav greene Work Phone: [facility] Start: 04-21-2022 End: 04-21-2022 ambulatory Kalyan Kingsley Other [facility] Other Start: 04-21-2022 Follow-up encounter Kalyan mendo[facility] Start: 04-21-2022 Telephone encounter Kalyan mendo[facility] Start: 04-13-2022 End: 04-13-2022 Patient encounter procedure MD Raghav Jeffries Work Phone: [facility] Start: 04-12-2022 End: 04-12-2022 ambulatory Reji Masha Other [facility] Other Start: 04-12-2022 Office outpatient visit 25 minutes Reji Masha [facility] Start: 03-17-2022 End: 03-17-2022 ambulatory Reji Masha Other [facility] Other Start: 03-17-2022 Office outpatient visit 25 minutes Reji Masha [facility] Start: 03-03-2022 Registered Recurring MD Raghav greene Work Phone: [facility] Start: 03-01-2022 End: 03-01-2022 ambulatory Kalyan Kingsley Other [facility] Other Start: 03-01-2022 Nutrition therapy Kalyan [facility] Start: 03-01-2022 Telephone encounter Kalyan mendoza [facility] Start: 02-16-2022 End: 02-17-[address] RAGHAV JEFFRIES Facility:[facility] Start: 12-10-2021 End: 12-10-2021 ambulatory Garrison Acosta Other [facility] Other Start: 12-10-2021 Office outpatient new 45 minutes Garrison Acosta [facility] Start: 11-09-2021 End: 11-10-[address] RAGHAV JEFFRIES Facility:[facility] Start: 10-14-2021 End: 10-15-2021 ambulatory HUA RICARDO Facility:[facility] Start: 10-06-[address] RAGHAV JEFFRIES Facil ity:[facility] Start: 10-23-2018 Patient encounter procedure Romi Mclaughlin Facility:[id number] Start: 07-28-2017 End: 07-28-2017 Ambulatory Kalyan LanceAvi Brennen Facility:[facility] Start: 03-03-2017 End: 03-03-2017 Ambulatory Romi Mclaughlin [facility] Procedures Date Procedure Procedure Detail Performing Clinician Start: 05-06-2023 Esophagogastroduodenoscopy MD Raghav brown Work Phone: Start: 12-31-2019 Cystoscope, device (physical object) Freddy BRUNO Start: 10-02-2018 Cystoscopy Freddy CARR Biopsy of breast Freddy ALCALA Cholecystectomy Freddy NORTH Completion thyroidectomy Valentina CARR Ear prosthesis, nida ce (physical object) Freddy CARR Endometrial ablation Freddy CARR Excision of melanoma Freddy CARR Fasciotomy of foot Freddy ELISE Ophthalmological imp lant (physical object) Freddy CARR Comment on above: lens implants jaz Tonsillectomy Freddy CARR Plan of Treatment Date Care Activity Detail Author Start: 05-20-2032 DTaP/Tdap/Td Vaccine s (2 - Td or Tdap) DTaP/Tdap/Td Vaccines (2 - Td or Tdap) [facility] Start: 04-15-2024 Influenza vaccination Influenz a Vaccine (Season Ended) [facility] Start: 01-30-2024 End: 01-29-2025 Hearing aid evaluation Hearing aid evaluation Audiology Routine Conductive hearing loss, bilateral Expected: 01/30/2024 (Approximate), Expires: 01/29/2025 [facility] Service Area Work Phone: Comment on above: Expected: 01/30/2024 (Approximate), Expires: 01/29/2025 Start: 05-06-2023 [facility] Start: 04-15-2023 COVID-19 Vaccine ( season) COVID-19 Vaccine ( season) [facility] Start: 2023 Pneumococcal Vaccine : 65+ Years (2 of 2 - PCV) Pneumococcal Vaccine: 65+ Years (2 of 2 - PCV) [facility] Start: 04-27-2022 Decompression of med phyllis nerve OR Carpal Tunnel Release Unilateral (Left) [facility] Start: 2018 RSV patient s and/or patients aged 60+ years (1 - 1-dose 60+ series) RSV patients and/or patients aged 60+ years (1 - 1-dose 60+ series) [facility] Start: 2008 Zoster Vaccines (1 of 2) Zoste r Vaccines (1 of 2) [facility] Start: 1979 Screening for malign ant neoplasm of cervix [facility] Start: 1976 Diabetes mellitus screening Diabetes Screening [facility] Start: 1976 Hepatitis C screening Hepatitis C [facility] Start: 1959 MMR Vaccines (1 of 1 - Standard series) MMR Vaccines (1 of 1 - Standard series) [facility] Start: 1958 Annual wellness visit Medicare Initial Physical (IPPE) [facility] Start: 1958 Lipid panel Lipid Panel [facility] Start: 1958 Screening for malign ant neoplasm of colon [facility] Start: 1958 Screening for osteoporosis Bone Density Scan [facility] Start: 1958 Thyroid stimulating hormone measurement TSH Level [facility] Bacteria identified in Urine by Culture [facility] Patient Education Gastric Ulcer (DC) Esophagitis Gastritis (DC) [facility] Work Phone: Immunizations Immunization Date Immunization Notes Care Provider Bib persaud 05-20-2022 tetanus toxoid, reduced diphtheria toxoid, and acellular pertussis vaccine, adsorbed Swapna James MD Work Phone: [facility] 06-11-2021 COVID-19 Nano Jones (Pfizer) MD Raghav Jeffries Work Phone: [facility] 06-11-2021 influenza, injectabl e, quadrivalent, preservative free Swapna James MD Work Phone: [facility] 06-11-2021 influenza virus vaccine, unspecified formulation Swapna James MD Work Phone: [facility] Work Phone: 12-05-2020 COVID-19 Nano Jones (Pfizer) MD Raghav Jeffries Work Phone: [facility] 11-14-2020 COVID-19 Nano Jones (Pfizer) MD Raghav Jeffries Work Phone: [facility] 09-23-2015 pneumococcal polysaccharide vaccine, 23 valent Garrison Acosta Other [facility] Other NEGATED: Highlighted row has not occurred!09-23-2015 influenza, seasonal, injectable Garrison Acosta Other [facility] Other Payers Date Payer Category Payer Medicare [id number] 2023 Medicare MEDICARE MEDICAR E PART A AND B [id number] 2023-Present [address] [place] [address] [id number] 2023 Medicare [id number] 2023 Medicaid MEDICAID MEDICAI D [id number] 2023-Present [address] [place] [address] [id number] 2023 Medicaid [id number] 2022 Self-pay [id number] 1959 Unknown [id number] 1959 Unknown [id number] 2.1 [id number] 1958 Unknown [id number] 2.16.840.1.547635.3.579.2.356 1958 Unknown [id number] 2.16.840.1.980338.3.579.2.593 1958 Unknown [id number] 2.16.840.1.987467.3.579.2.593 1958 Unknown [id number] 2.16.840.1.142036.3.579.2.593 1958 Unknown [id number] 2.16.840.1.763666.3.579.2.593 1958 Unknown [id number] 2.16.840.1.588294.3.579.2.593 1958 Unknown [id number] 2.16.840.1.155495.3.579.2.593 1958 Unknown [id number] 2.16.840.1.203331.3.579.2.593 1958 Unknown [id number] 2.16.840.1.752205.3.579.2.593 1958 Unknown [id number] 2.16.840.1.802844.3.579.2.727 1958 Unknown [id number] 2.16.840.1.891568.3.579.2.1286 1958 Unknown [id number] 2.16.840.1.508960.3.579.2.1244 1958 Unknown [id number] 2.16.840.1.606054.3.579.2.1286 1958 Unknown [id number] 2.16.840.1.996398.3.579.2.128 1958 Unknown [id number] 2.16.840.1.409563.3.579.2.1286 1958 Unknown [id number] 2.16.840.1.179597.3.579.2.128 1958 Unknown [id number] 2.16.840.1.127658.3.579.2.128 1958 Unknown [id number] 2.16.840.1.662791.3.579.2.128 1958 Unknown [id number] 2.16.840.1.568489.3.579.2.1286 1958 Unknown [id number] 2.16.840.1.482215.3.579.2.128 1958 Unknown [id number] 2.16.840.1.754668.3.579.2.1286 1958 Unknown [id number] 2.16.840.1.656673.3.579.2.128 1958 Unknown [id number] 2.16.840.1.756057.3.579.2.1286 Unknown [id number] 2.16.840.1.245790.3.579.2.531 Unknown [id number] 2.16.840.1.205244.3.579.2.531 Social History Date Type Detail Facility Unknown if ever smoked [facility] Other Start: 01-30-2024 Sex Assigned At F [facility] Start: 04-13-2022 End: 01-30-2024 Tobacco smoking status NHIS Never smoked tobacco (finding) [facility] Start: 1960 Sex Assigned At Female F [facility] Start: 01-30-2024 Tobacco use and exposure Smokeless tobacco non-user [facility] Work Phone: Start: 01-30-2024 History of Social function [facility] Work Phone: Start: 1960 Sex assigned at Not on file [facility] Work Phone: Start: 01-20-2024 End: 01-30-2024 Exposure to SARS-CoV-2 (event) Not sure [facility] Medical Equipment Procedure Code Equipment Code Equipment Original Text Equipment Identifier Dates Phacoemulsification of cataract with intraocular lens implantation LENS ACRYSOF IOL [id number] FDA Start: 02-23-2018 Phacoemulsification of cataract with intraocular lens implantation LENS ACRYSOF IOL [id number] FDA Start: 03-30-2018 Phacoemulsification of cataract with intraocular lens implantation LENS ACRYSOF IOL [id number] FDA Start: 02-23-2018 Phacoemulsification of cataract with intraocular lens implantation LENS ACRYSOF IOL [id number] FDA Start: 03-30-2018 Phacoemulsification of cataract with intraocular lens implantation LENS ACRYSOF IOL [id number] FDA Start: 02-23-2018 Phacoemulsification of cataract with intraocular lens implantation LENS ACRYSOF IOL [id number] FDA Start: 03-30-2018 Phacoemulsification of cataract with intraocular lens implantation LENS ACRYSOF IOL [id number] FDA Start: 02-23-2018 Phacoemulsification of cataract with intraocular lens implantation LENS ACRYSOF IOL [id number] FDA Start: 03-30-2018 Phacoemulsification of cataract with intraocular lens implantation LENS ACRYSOF IOL [id number] FDA Start: 02-23-2018 Phacoemulsification of cataract with intraocular lens implantation LENS ACRYSOF IOL [id number] FDA Start: 03-30-2018 Goals Date Patient Goal Desired Activity /State Clinical Notes 12-10-2021 to 04-02-2024 Swapna James MD - 01/30/2024 3:15 PM EDT Note Date & Type Note Facility 04-02-2024 Note Orthopedic Surgery Subjective Chief complaint: Chief Complaint Patient presents with Left Foot - Pain 04/02/24 Patient is here for follow-up of left malunited calcaneus. Patient has been weightbearing as tolerated. Patient has continued to wear cam boot. She reports that she has not ambulating much, due to pain of the left heel. She also reports that her left foot everts when she bears weight on it. She denies any numbness or tingling of the left lower extremity. 11/28/23 Rosa Maria Siegel is a 63 y.o. year old female presenting for evaluation of a neglected calcaneus fracture, patient sustained an injury almost 3 months ago (DOI 09/05/23) when she fell, was seen by a group therapy counselor. Since then she has been NWB in CAM boot. She was told she needs surgery. Denies numbness, tingling, and weakness. ROS Constitutional: Denies Musculoskeletal: No back pain Skin: Denies any skin lesions Neurological: No tingling, numbness, weakness Patient History Past Surgical History: Procedure Laterality Date CHOLECYSTECTOMY INNER EAR SURGERY X 18 Past Medical History: Diagnosis Date Arthritis Cancer ([facility]) Breast,foot, and Thyroid Diabetes mellitus ([facility]) Fracture of hand Hypertension Objective General: Body mass index is 56.64 kg/m???. No acute distress, comfortable Respiratory: Unlabored breathing with normal rate, no cough Cardiovascular: Warm well perfused extremities Psych: Appropriate mood behavior Evaluation of LEFT foot / ankle: - malunited posterior calcaneal tuberosity bone fragment in the Achilles - no tenderness - 5/5 TA/PTT/EHL, 4/5 PB, 5/5 Achilles - Normal passive ankle / subtalar ROM - Normal 1st MTP and lesser MTPs ROM - No lesser toe deformities - No callus - Skin intact - No ankle laxity with -ve anterior drawer and talar tilt tests - SILT in DPN, SPN, sural and saphenous nerve distributions - 2+ DP pulse with brisk capillary refill Imaging: NWB left foot and ankle X-rays, 3 views, obtained in office today shows healed malunited tongue type calcaneal fracture Imaging was reviewed and interpreted by me, and findings were reviewed with the patient. Assessment/Plan Rosa Maria Siegel is a 63 y.o. year old female with healed (malunited) tongue type calcaneus fracture - DOI 09/05/23 Plan -Patient should continue to be weightbearing as tolerated to the left lower extremity. Can wear regular shoe, discontinue boot. -Given patient's weakness with eversion, concern for pathology of peroneal tendons. We will obtain an MRI of the left ankle -Follow-up after MRI completed The patient understands and agrees to the management plan, and all patient questions have been answered to her satisfaction. Other closed displaced fracture of tuberosity of left calcaneus with malunion, subsequent encounter Mateo Guthrie MD Orthopaedic Surgery, PGY-2 04/02/24 9:51 AM By using the attestations below, the signing clinician agrees that I have read and verify that the documentation has been personally reviewed by me and ensure that the documentation accurately reflects the encounter. GC: I personally saw this patient on the day of the encounter, performed the merino portion(s) of the service and participated in the management and confirm the resident's documentation. Please note there may be an additional personal documentation from me. [facility] 01-30-2024 History of Present illness Narrative History of present illness: Rosa Maria Siegel is a 63 y.o. female presenting today for E/M of bilateral hearing loss. This patient [facility] in a [facility] and one of the aides was present today and accompanied her. She was referred by the [facility] hospitalist for her hearing issues. Has a history of bilateral ear surgery actually in fact multiple with trying to restore her hearing by rebuilding her hearing bones. Recently she developed a decrease in her hearing in the left ear she could not hear at all that took about a week until that she recovered it. She is now back to baseline but denies any pain or drainage. There is a report of a CT scan of the head done after a fall that described opacification of some of the mastoid air cells on the right. The patient's current medications, active allergies and list of medical problems were reviewed in the EHR and confirmed electronically there are as follows; Allergies: Not on File Current list of medications: No current outpatient medications on file. No current facility-administered medications for this visit. Problem list: There is no problem list on file for this patient. Physical Examination: CONSTITUTIONAL: No acute distress VOICE: No hoarseness or other abnormality RESPIRATION: Breathing comfortably, no stridor CV: No clubbing/cyanosis/edema in hands EYES: EOM intact, sclera clear NEURO: Alert and oriented times 3, Cranial nerves II-XII grossly intact and symmetric bilaterally HEAD AND FACE: Symmetric facial features, no masses or lesions RIGHT EAR: Was patent. Tympanic graft intact. There is evidence of a new graft but no evidence of cholesteatoma, retraction, effusion or active infection. LEFT EAR: There is evidence of the mastoid cavity that is well epithelialized. Graft is intact well aerated without any signs of effusion or cholesteatoma or active infection NOSE: Anterior rhinoscopy clear, no significant external deformity. ORAL CAVITY/OROPHARYNX/LIPS: normal lining, mobile tongue. PHARYNGEAL JOHNSON: Moist mucosal lining, good palatal elevation NECK/LYMPH: No LAD, no thyroid masses, trachea midline SKIN: Neck and facial skin is without scar or injury PSYCH: Alert and oriented with appropriate mood and affect Impression: Bilateral chronic otitis media Bilateral hearing loss. Encounter post left mastoid cavity Recommendation: There are no active otological issues at this point. I recommended proceeding with a comprehensive hearing assessment and a hearing aid evaluation. She would like to have a hearing aid hearing aid for her right ear She will follow-up with me on an as-needed basis if she has any further otological issues she can see one of our nurse practitioners. I discussed with the patient the complexity of my medical decision making including the treatment and testing rational, indications of their elective procedure and possible adverse effects and/or complications. Based on the provided documentation and my professional assessment of this patient's chronic condition, the complexity of evaluation and treatment is low. This note was created using speech recognition library science professor software. Despite proofreading, several typographical errors might be present that might affect the meaning of the content. Please call with any questions. documented in this encounter [facility] Work Phone: 11-28-2023 Note Orthopedic Surgery Subjective Chief complaint: Chief Complaint Patient presents with Left Calcaneus - Pain 11/28/23 Rosa Maria Siegel is a 63 y.o. year old female presenting for evaluation of a neglected calcaneus fracture, patient sustained an injury almost 3 months ago (DOI 09/05/23) when she fell, was seen by a group therapy counselor. Since then she has been NWB in CAM boot. She was told she needs surgery. Denies numbness, tingling, and weakness. ROS Constitutional: Denies Musculoskeletal: No back pain Skin: Denies any skin lesions Neurological: No tingling, numbness, weakness Patient History Past Surgical History: Procedure Laterality Date CHOLECYSTECTOMY INNER EAR SURGERY X 18 Past Medical History: Diagnosis Date Arthritis Cancer (CMS/HCC) Breast,foot, and Thyroid Diabetes mellitus (CMS/HCC) Fracture of hand Hypertension Objective General: Body mass index is 56.64 kg/m???. No acute distress, comfortable Respiratory: Unlabored breathing with normal rate, no cough Cardiovascular: Warm well perfused extremities Psych: Appropriate mood behavior Evaluation of LEFT foot / ankle: - Palpable malunited posterior calcaneal tuberosity bone fragment in the Achilles - no tenderness - 4+/5 TA/PTT/PB and EHL, 4/5 Achilles - Normal passive ankle / subtalar ROM - Normal 1st MTP and lesser MTPs ROM - No lesser toe deformities - No callus - Skin intact - No ankle laxity with -ve anterior drawer and talar tilt tests - SILT in DPN, SPN, sural and saphenous nerve distributions - 2+ DP pulse with brisk capillary refill Imaging: NWB left foot and ankle X-rays, 3 views, obtained in office today shows healed malunited tongue type calcaneal fracture Imaging was reviewed and interpreted by me, and findings were reviewed with the patient. Assessment/Plan Rosa Maria Siegel is a 63 y.o. year old female with healed (malunited) tongue type calcaneus fracture - DOI 09/05/23 BMI 56.64 PMH DM, HTN I discussed with the patient the nature and prognosis of the condition, as well as the nonoperative Vs operative management options, and the potential risks and benefits of each of the 2 options. At this point the fracture has healed and she has reasonable function and achilles is functioning with good strength Plan - Start PWB in boot and advance gradually using pain as a guide, the goal is to be WBAT / FWB over next 2-3 weeks. All weight bearing transition in CAM boot. - Referral to physical therapy for ROM, strengthening, stretching, proprioception, gait/balance training, deep tissue/scar tissue massage, Graston technique and modalities as needed - Continue to advance activities as tolerated using pain as a guide - Follow up 3 months The patient understands and agrees to the management plan, and all patient questions have been answered to her satisfaction. Other closed displaced fracture of tuberosity of left calcaneus with malunion, subsequent encounter Pain of left heel Chavo Youngblood MD Orthopedic Surgery, Pumper Gager Apprentice [facility] 11/28/23 [facility] 05-06-2023 Procedure note [facility] 04-13-2023 Evaluation note Encounter Date Diagnosis Assessment Notes Mar, GERD (gastroesopha geal reflux disease) (ICD-10 - K21.9) History of gerd for several years. Mar, Dysphagia (ICD-10 - R13.10) Patient has dysphagia to solids for past 3 months. Family history of esophageal cancer [facility] 08-11-2023 Hospital Discharge instructions Follow Up Care 03/25/2023 10:07:48 With:BRUNO NIXON, Freddy Bonilla, URL Address: [address] [place] [address]- When: Unknown [facility] 09-07-2022 Evaluation note* Encounter Date Diagnosis Assessment Notes Treatment Notes Treatment Clinical Notes Apr, Type 2 diabetes mellitus with unspecified complications (ICD-10 - E11.8) Apr, BMI 50.0-59.9, adult (ICD-10 - Z68.43) Apr, Hypertension (ICD-10 - I10) Apr, Mixed hyperlipidemia (ICD-10 - E78.2) Apr, Depression, unspecified depression type (ICD-10 - F32.9) Apr, GERD (gastroesophageal reflux disease) (ICD-10 - K21.9) Apr, Low back derangement syndrome (ICD-10 - M53.86) Apr, Knee osteoarthritis (ICD-10 - M17.9) Apr, Obstructive sleep apnea (ICD-10 - G47.33) Apr, Insomnia (ICD-10 - G47.00) [facility] 08-29-2022 Evaluation note* Encounter Date Diagnosis Assessment Notes Treatment Notes Treatment Clinical Notes Mar, Primary osteoarthritis of both knees (ICD-10 - M17.0) Rosa Maria returns with bilateral knee DJD. At this juncture we have discussed the findings and diagnosis as well as personally reviewed appropriate imaging and performed interpretation of related testing and examination with the patient in office today. Today we have discussed degenerative joint disease of the knee and its treatment. Imaging was discussed and explained to the patient. We discussed recommended conservative therapies including physical therapy, anti-inflammatory medications, and weight loss strategies. We also discussed other treatment options including cortisone injections, Visco supplementation injections which are options for treatment. I have laid out the course of knee DJD including the end-stage treatment of total joint arthroplasty. The patient recognizes and understands our options and goals and we will move forward with our treatment. She would like to try bilateral cortisone injections again today. Under sterile technique patient's bilateral knees were injected via the inferolateral portal with Synvisc 1, she tolerated this well. I will see her back as needed The patient has been involved in our cooperative treatment plan and agrees to move forward with treatment at this time. Mar, Left carpal tunnel syndrome (ICD-10 - G56.02) Rosa Maria is also complaining of numbness and tingling in the median distribution of the left hand today. She noticed weakness and is dropping things with this. Findings and diagnosis of carpal tunnel syndrome have been discussed at length with the patient. We have discussed how it is the most common compressive neuropathy effects up to 10% of the population. Diagnostic evaluation including physical exam as well as electromyography and nerve conduction studies were discussed. Imaging and diagnostic studies have been reviewed with the patient. Nonoperative treatment including NSAIDs, night splints as well as activity modifications along with steroid injections have been discussed. We have discussed open surgical release of the transverse carpal ligament which is performed during carpal tunnel surgery. We have also discussed the outcomes involved in surgical release including the return of pinch strength in approximately 6 weeks, industrial economics teacher strength recovery at about 12 weeks, and the possibility of ongoing symptoms at 1 year and 20% of severe cases. Patient verbalized understanding of our discussion and would like to move forward with cortisone injection and EMG at this time. She did not have much relief from prior injection and EMG shows moderate carpal tunnel syndrome and she is having daytime issues. At this point I would forego any further conservative treatments due to the severity of her complaints and I would recommend carpal tunnel release. We will get this scheduled. At this juncture we have discussed the findings and diagnosis as well as reviewed appropriate imaging and performed interpretation of testing. Surgical intervention is recommended. Prior medical notes and history have been reviewed. Surgical versus non-operative management have been discussed in detail and non-operative management was given as an option. The risks of surgical intervention were given. Pre-operative optimization will be done prior to surgical procedure to limit angelica-operative risks. I have discussed the planned procedure, how and who performs the procedure, and the personnel involved. Cardiovascular, pulmonary, and other life threatening episodes can occur during surgery although there is a low risk of these happening. Surgical risks including bleeding, neurovascular injury, wound closure problems and infection were discussed. Angelica-operative risks including infection, bleeding, wound healing problems, and need for further surgery were discussed. It was discussed that there is a possibility of blood transfusion with any surgical procedure and the risks involved in receiving a blood transfusion. Possibility of, and need for, future bracing or DME use, physical or occupational therapy, mental therapy, rehabilitation, pain management and need for secondary procedures was discussed. I have warned against smoking and the use of tobacco products due to the risks associated with them, in particular, poor healing. I have advised against the terminologist use of narcotic pain medication. I have advised to follow all post-operative instructions in order to obtain the best outcome. Informed consent has been verbally affirmed and signed as indicated. Based on location of pain and exam findings we will proceed with a LCTR. Risks and benefits of procedure explained to patient; patient verbalizes understanding. Mar, Pain in right knee (ICD-10 - M25.561) Mar, Pain in left knee (ICD-10 - M25.562) Mar, Morbid (severe) obesity due to excess calories (ICD-10 - E66.01) Mar, Body mass index [BMI] 50.0-59.9, adult (ICD-10 - Z68.43) Today we discussed obesity. We discussed the range of BMI and the patient's BMI of 56. We discussed weight loss strategies through increased physical activity as well as decrease caloric intake. We offered referral for bariatric services. Our discussion is limited to [address] Kingsley placed [facility] 08-03-2022 Evaluation note* Encounter Date Diagnosis Assessment Notes Treatment Notes Treatment Clinical Notes Mar, Primary osteoarthritis of both knees (ICD-10 - M17.0) Rosa Maria returns with bilateral knee DJD. At this juncture we have discussed the findings and diagnosis as well as personally reviewed appropriate imaging and performed interpretation of related testing and examination with the patient in office today. Today we have discussed degenerative joint disease of the knee and its treatment. Imaging was discussed and explained to the patient. We discussed recommended conservative therapies including physical therapy, anti-inflammatory medications, and weight loss strategies. We also discussed other treatment options including cortisone injections, Visco supplementation injections which are options for treatment. I have laid out the course of knee DJD including the end-stage treatment of total joint arthroplasty. The patient recognizes and understands our options and goals and we will move forward with our treatment. She would like to try bilateral cortisone injections again today. Under sterile technique patient's bilateral knees were injected via the inferolateral portal with 4 cc Marcaine and 1 cc of Kenalog, she tolerated this well. I will see her back as needed The patient has been involved in our cooperative treatment plan and agrees to move forward with treatment at this time. We performed a marcaine / kenalog cortisone injection into the bilateral knee joint under sterile technique. Patient tolerated the injection well without adverse reaction. Patient continues to experience joint pain and we will now apply for hyaluronic acid injections. Patient has failed other conservative treatments including oral NSAIDs or topical medications, acetaminophen, home therapy exercises and cortisone injections for a trial of 3 months or longer. Mar, Left carpal tunnel syndrome (ICD-10 - G56.02) Rosa Maria is also complaining of numbness and tingling in the median distribution of the left hand today. She noticed weakness and is dropping things with this. Findings and diagnosis of carpal tunnel syndrome have been discussed at length with the patient. We have discussed how it is the most common compressive neuropathy effects up to 10% of the population. Diagnostic evaluation including physical exam as well as electromyography and nerve conduction studies were discussed. Imaging and diagnostic studies have been reviewed with the patient. Nonoperative treatment including NSAIDs, night splints as well as activity modifications along with steroid injections have been discussed. We have discussed open surgical release of the transverse carpal ligament which is performed during carpal tunnel surgery. We have also discussed the outcomes involved in surgical release including the return of pinch strength in approximately 6 weeks, industrial economics teacher strength recovery at about 12 weeks, and the possibility of ongoing symptoms at 1 year and 20% of severe cases. Patient verbalized understanding of our discussion and would like to move forward with cortisone injection and EMG at this time. She did not have much relief from prior injection and EMG shows moderate carpal tunnel syndrome and she is having daytime issues. At this point I would forego any further conservative treatments due to the severity of her complaints and I would recommend carpal tunnel release. We will get this scheduled. At this juncture we have discussed the findings and diagnosis as well as reviewed appropriate imaging and performed interpretation of testing. Surgical intervention is recommended. Prior medical notes and history have been reviewed. Surgical versus non-operative management have been discussed in detail and non-operative management was given as an option. The risks of surgical intervention were given. Pre-operative optimization will be done prior to surgical procedure to limit angelica-operative risks. I have discussed the planned procedure, how and who performs the procedure, and the personnel involved. Cardiovascular, pulmonary, and other life threatening episodes can occur during surgery although there is a low risk of these happening. Surgical risks including bleeding, neurovascular injury, wound closure problems and infection were discussed. Angelica-operative risks including infection, bleeding, wound healing problems, and need for further surgery were discussed. It was discussed that there is a possibility of blood transfusion with any surgical procedure and the risks involved in receiving a blood transfusion. Possibility of, and need for, future bracing or DME use, physical or occupational therapy, mental therapy, rehabilitation, pain management and need for secondary procedures was discussed. I have warned against smoking and the use of tobacco products due to the risks associated with them, in particular, poor healing. I have advised against the terminologist use of narcotic pain medication. I have advised to follow all post-operative instructions in order to obtain the best outcome. Informed consent has been verbally affirmed and signed as indicated. We will plan on carpal tunnel release.The patient has stated that they do not want to live in this condition any longer and would like to proceed with surgery. I feel that this is a reasonable option at this point and we may be able to improve function and decrease pain and numbness. We have discussed the process and procedure in detail including not eating or drinking 8 hrs prior to surgery, the need for anesthesia and associated respiratory, cardiac, and patient position complications (such as nerve traction and compression). We discussed that incisional pain and continued neurologic symptoms can persist for months after surgery. 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 Patient is fully aware that this wrist may never be the same. We discussed that our team will do everything we can to help achieve the best outcome. Patient states she will call when she is ready to proceed Mar, Pain in right knee (ICD-10 - M25.561) Mar, Pain in left knee (ICD-10 - M25.562) Mar, Morbid (severe) obesity due to excess calories (ICD-10 - E66.01) Mar, Body mass index [BMI] 50.0-59.9, adult (ICD-10 - Z68.43) Today we discussed obesity. We discussed the range of BMI and the patient's BMI of 56. We discussed weight loss strategies through increased physical activity as well as decrease caloric intake. We offered referral for bariatric services. Our discussion is limited to [address] Kingsley placed Mar, Other See orders for this visit as documented in the electronic medical record. [facility] 07-18-2022 Evaluation note* Encounter Date Diagnosis Assessment Notes Treatment Notes Treatment Clinical Notes Feb, Abnormal weight gain (ICD-10 - R63.5) Feb, Type 2 diabetes mellitus with unspecified complications (ICD-10 - E11.8) Feb, Hypertension (ICD-10 - I10) Feb, Mixed hyperlipidemia (ICD-10 - E78.2) Feb, Depression, unspecified depression type (ICD-10 - F32.9) Feb, GERD (gastroesophageal reflux disease) (ICD-10 - K21.9) Feb, Low back derangement syndrome (ICD-10 - M53.86) Feb, Knee osteoarthritis (ICD-10 - M17.9) Feb, Obstructive sleep apnea (ICD-10 - G47.33) Feb, Insomnia (ICD-10 - G47.00) [facility] 04-28-2022 Evaluation note* Encounter Date Diagnosis Assessment Notes Treatment Notes Treatment Clinical Notes Nov, Morbid obesity (ICD-10 - E66.01) This patient has normal appearance clinical exam and vascular blood supply to her right foot. I did review the ABIs that came with the patient today. They are also normal. This patient does not have any vascular abnormalities of her right foot or leg. I will see her as needed in the future. Many thanks for the consult. [facility] Other Evaluation + Plan note No data available for this section [facility] evaluation noteNo InformationNort Givey Other Evaluation noteNo assessment information available [facility] Work Phone: Evaluation note* Diagnosis Chronic otitis media of both ears- Primary Unspecified otitis media Conductive hearing loss, bilateral documented in this encounter [facility] Work Phone: History and physical note Author Shelby Herzog [facility] May 06, 2023 12:56pm Note Date/Time May 06, 2023 12:56pm [facility] [address] [place] [address] Gastroenterology H&P Signed Patient: Rosa Maria Siegel MR#: [id number] : 1960 Acct:[id number] Age/Sex: 63 / F Adm Date: 3 Loc: Room: Type: [facility] Attending Dr: Shelby Herzog MD Copies to: MD Raghav Baker MD~ Date of Service: 05/06/2023 HISTORY & PHYSICAL: Patient's history with special attention to the cardiovascular, pulmonary systems and the current problem was reviewed with the patient immediately prior to the procedure. Present medications and doses reviewed in the EMR. Allergies and pertinent laboratory tests were also reviewedat this time in the EMR. The physical examination, as below, was then performed. Indication, assessment and HPI: 63-year-old female with family history of esophageal cancer here for EGD for evaluation of dysphagia Family history of GI malignancy? Yes PHYSICAL EXAMINATION Mouth and Pharynx : Moist mucus membranes, normal dentition Cardiac: Regular rate, regular rhythm Pulmonary: Clear to auscultation bilaterally, no wheezing Neurological: Alert and oriented x3, no focal deficits noted Abdomen: Abdomen soft, non-tender REVIEW OF SYSTEMS Constitutional: Denies malaise, fevers Cardiovascular: Denies chest pain, palpitations Respiratory: Denies shortness of breath, wheezing Gastrointestinal: Per HPI Genitourinary: Denies dysuria, polyuria Musculoskeletal: Denies joint swelling, joint stiffness Neurological: Denies numbness, tingling Integumentary: Denies rashes, skin lesions Endocrine: Denies fatigue, weight loss Written informed consent obtained from the patient. Risks (including but not limited to perforation, infection, bloating, bleeding, need for emergent surgeryand loss of life), benefits and alternatives explained and questions answered. The patient verbalized understanding. Based on history patient is an appropriate candidate for the procedure. Shelby Herzog M.D. Documented By: Shelby Herzog MD 05/06/23 1255 Signed By: <Electronically signed by Shelby Herzog MD> 05/06/23 1256 [facility] Work Phone: History general Narrative - Reported* Type Description Date Medical History TYPE II DIABETIC Medical History HX OF BREAST CANCER Medical History HX OF MYLENOMA LT FOOT Medical History HTN Medical History FAN Medical History HX OF STROKE Medical History FTC (thyroid in 2005) Medical History Adult idiopathic generalized ost eoporosis Medical History Vitamin D deficiency Medical History Post-surgical hypothyroidism Medical History Follicular thyroid cancer Surgical History SPUR REMOVED RT FOOT Surgical History CANCER LT FOOT Surgical History LT KNEE ARTHROSCOPTIC Surgical History GALLBLADDER Surgical History UTERINE ABLATION Surgical History CYTOSCOPE Surgical History MULTIPLE EAR SURGERY Surgical History TONSILS AND ADNOIDS Surgical History RT SHOULD ROTAR CUFF REPAIR Surgical History thyroidectomy in 2005 Surgical History COCHELAR IMPLANTS Hospitalization History SEE ABOVE SURGERY Hospitalization History CHILD X'S 1 [facility] Other [facility] general Narrative - Reported* Type Description Date Medical History TYPE II DIABETIC Medical History HX OF BREAST CANCER Medical History HX OF MYLENOMA LT FOOT Medical History HTN Medical History FAN Medical History HX OF STROKE Medical History FTC (thyroid in 2006) Medical History Adult idiopathic generalized ost eoporosis Medical History Vitamin D deficiency Medical History Post-surgical hypothyroidism Medical History Follicular thyroid cancer Medical History chronic depression Medical History anxiety Medical History Panic attacks Medical History heartburn Medical History hyperlipidemia Medical History heart disease Medical History kidney stones Medical History heart murmur Medical History fatigue Medical History sleep apnea Medical History thyroid disease Medical History shoulder pain Medical History Arthritis Medical History back pain Medical History fibromyalgia Medical History Brittle bones Medical History osteoporosis Medical History insomnia Medical History Gout Medical History Balance problems Medical History vertigo Medical History neuropathy Medical History deaf- reads lips Surgical History SPUR REMOVED RT FOOT Surgical History CANCER LT FOOT Surgical History LT KNEE ARTHROSCOPTIC Surgical History GALLBLADDER Surgical History UTERINE ABLATION Surgical History CYTOSCOPE Surgical History MULTIPLE EAR SURGERY Surgical History TONSILS AND ADNOIDS Surgical History RT SHOULD ROTAR CUFF REPAIR Surgical History thyroidectomy in 2006 Surgical History COCHELAR IMPLANTS Surgical History laser therapy Hospitalization History SEE ABOVE SURGERY Hospitalization History CHILD X'S 1 [facility] Other [facility] Discharge instructions Additional Instructions DISCHARGE INSTRUCTIONS FOR UPPER ENDOSCOPY WHAT TO EXPECT: - You may feel full, gassy or cramping after your procedure. In some cases, this may be from a few hours to a day. Walking may help relieve the discomfort. - Your throat may feel sore today from the scope that the doctor passed through your throat to visualize your stomach. Take a throat lozenge or suck on ice to ease the discomfort. - You may notice some streaks of blood in your sputum if the doctor has taken a biopsy. - You should begin to recover from anesthesia within 1 hour of the procedure, however may feel groggy for the next 24 hours. DO's AND DON'Ts: - Call your doctor right away if you have a hard abdomen, severe pain, vomiting or if you cough up large amounts of blood. - Call your doctor if you develop any rashes, hives or difficulty breathing. - If you take 81 mg aspirin for your heart it is safe to resume this medication. - If you take other blood thinner medications your doctor will instruct you when these can safely be resumed. - Do NOT drive for 24 hours. - Do NOT operate machinery such as power tools, lawn mowers, snow blowers, [employer] machines, etc. for 24 hours. - Avoid alcoholic beverages and drugs for allergies, nerves, or sleep. - Do NOT stay alone. Do NOT leave your child unattended. - Do NOT make important personal or business decisions or sign any legal documents. - Eat solid foods and drink liquids in smaller amounts than usual until normal appetite returns. If you should experience an upset stomach, liquids high in sugar content (soda, Thaddeus-Aid, non-acid juices) are recommended. - Do NOT smoke. - Do take it easy today. You need not stay in bed, but avoid strenuous activities such as jogging or working out. FOLLOW UP & RECOMMENDATIONS: -Increase Protonix to 40 mg twice daily 30 minutes before breakfast/dinner -Avoid NSAIDs -Follow up pathology -Repeat EGD in 12 weeks -Notify the doctor if you have any problems. -Office number [phone]. [facility] Work Phone: Progress note No data available for this section [facility] reason for referral (narrative)* Reason Appt: Depression, needs scheduled for evaluation soon as possible, patient did self harm recently. PHQ9 is 18, thinks of harming herself or better off more than half the days. Diagnosis 1 Depression, unspecif ied depression type (F32.9) Referral Organization [facility] Referring Provider First Name Kalyan Referring Provider Last Name Sancho Referring Provider Specialty Internal Me dicine Referred Organization [facility] [place] Referred Address [address] [place] [id number] Referred Provider Specialty Other Medica l Care Referral Priority Routine General Notes Contact patient or h er emily December to schedule, patient is hard of hearing [facility] Other Reason for referral (narrative)* Consultation (Routine) - Authorized Specialty Diagnoses / Procedures Referred By Ashia koo Referred To Contact Audiology Diagnoses Conductive hearing loss, bilateral Swapna James MD [address] [facility] [address] [place] [address] Referral ID Status Reason Start Date Expiration Date Visits Requested Visits Authorized [id number] Authorized Specialty Services Required 01/30/2024 01/29/2025 1 1 * (Routine) - Pending Review Specialty Diagnoses / Procedures Referred By Ashia koo Referred To Contact Diagnoses Conductive hearing loss, bilateral Procedures Hearing aid evaluation Swapna James MD [address] [facility] [address] [place] [address] Referral ID Status Reason Start Date Expiration Date V isits Requested Visits Authorized [id number] Pending Review 01/30/2024 01/29/2025 1 1 [facility] Work Phone: Summary Purpose Family History No Family History Records Found Relationship Condition Age at Onset Recorded Date/T rich Not Specified Congestive heart failure Unknown Diabetes mellitus Unknown Cerebrovascular accident (CVA) Unknown father Malignant neoplasm of stomach Unknown Malignant neoplasm of esophagus Unknown brother Malignant melanoma Unknown sister Pulmonary embolism Unknown Meningioma Unknown sister Malignant neoplasm of brain Unknown Heart valve disease Unknown brother Dementia Unknown brother Myocardial infarction Unknown sister Lupus Unknown Advance Directives No Advanced Directives Records Found Advance Directive Response Recorded Date/ Time Advance Directives No September 13, 2017 10:51am Advance Directive Response Recorded Date/ Time Advance Directives No September 13, 2017 9:51am Chief Complaint and Reason for Visit Chief Complaint Obesity Carpal Tunnel Chief Complaint Carpal Tunnel Obesity Carpal Tunnel Chief Complaint Obesity Carpal Tunnel Carpal Tunnel Chief Complaint gerd, dysphagia Additional Source Comments INFORMATION SOURCE (unrecogn ized section and content) DATE CREATED AUTHOR 02/07/2018 [facility] DATE CREATED AUTHOR AUTHOR'S ORGANIZ ATION 10/31/2018 [facility] DATE CREATED AUTHOR AUTHOR'S ORGANIZ ATION 02/15/2021 [facility] DATE CREATED AUTHOR AUTHOR'S ORGANIZ ATION 05/21/2022 [facility] DATE CREATED AUTHOR AUTHOR'S ORGANIZ ATION 05/17/2023 [facility] DATE CREATED AUTHOR AUTHOR'S ORGANIZ ATION 06/12/2023 [facility] DATE CREATED AUTHOR AUTHOR'S ORGANIZ ATION 09/08/2023 [facility] DATE CREATED AUTHOR AUTHOR'S ORGANIZ ATION 02/01/2024 [facility] DATE CREATED AUTHOR AUTHOR'S ORGANIZ ATION 03/28/2024 [facility] DATE CREATED AUTHOR AUTHOR'S ORGANIZ ATION 04/07/2024 [facility] DATE CREATED AUTHOR AUTHOR'S ORGANIZ ATION 04/13/2024 [facility] REASON FOR VISIT (unrecogniz ed section and content) Reason Comments New Patient Visit Care Teams (unrecognized sec tion and content) Team Status: Active Member Role Status Dates Raghav Jeffries MD Primary Care Provider Active Reji Flanagan DO Attending Provider Active Team Status: Inactive Member Role Status Dates Raghav Jeffries MD Primary Care Provider Active Reji Flanagan DO Attending Provider Active Team Status: Active Member Role Status Dates Raghav Jeffries MD Primary Care Provider Active Team Status: Inactive Member Role Status Dates MARIZA SpauldingC Attending Provider Active Team Status: Inactive Member Role Status Dates Shelby Herzog MD Attending Provider Active Raghav Jeffries MD Primary Care Provider Active Mail Service Coordinator Relationship Specialty Start Date End Date Raghav Jeffries MD PCP - General 02/10/21 Goals (unrecognized section and content) Goals may be documented in a n alternate section FOR RECORDS PERTAINING TO PATIENTS WHO ARE OR HAVE BEEN ENROLLED IN A CHEMICAL DEPENDENCY/SUBSTANCEABUSE PROGRAM, SOME INFORMATION MAY BE OMITTED. This clinical summary was aggregated from multiple sources. Caution should be exercised in using it in the provision of clinical care. This summary normalizes information from multiple sources, and as a consequence, information in this document may materially change the coding, format and clinical context of patient data. In addition, data may be omitted in some cases. CLINICAL DECISIONS SHOULD BE BASED ON THE PRIMARY CLINICAL RECORDS. [facility]. provides no warranty or guarantee of the accuracy or completeness of information in this document.
[2024-04-21 11:03] LABS: Hematocrit 40.3 % (36.0-48.0); Hemoglobin 11.5 g/dL (12.0-16.0); Mean Corpuscular HGB Conc 28.5 g/dL (29.9-35.2); Mean Corpuscular Hemoglobin 20.3 pg (26.7-34.0); Mean Corpuscular Volume 71.2 fL (81.0-99.0); Mean Platelet Volume 11.1 fL (9.5-13.5); Platelet Count 290 10^3/uL (150-450); Red Cell Distribution Width 18.8 % (11.0-15.0); White Blood Count 6.8 10^3/uL (4.0-11.0)
[2024-04-21 11:14] LABS: Anion Gap 16.9; BUN Creatinine Ratio 21.8; Calcium 8.5 mg/dL (8.5-10.1); Carbon Dioxide 23.4 mmol/L (21.0-32.0); Chloride 103 mmol/L (98-107); Estimated GFR (African America >60 (>=60); Estimated GFR (Non-African Ame >60 (>=60); Glucose 137 mg/dL (74-106); Magnesium 1.7 mg/dL (1.8-2.4); Phosphorus 4.5 mg/dL (2.6-4.7); Potassium 4.3 mmol/L (3.5-5.1); Sodium 139 mmol/L (136-145)
[2024-04-21 12:19] LABS: Red Blood Count 5.66 10^6/uL (4.20-5.40)
== END 2024-04-21 10:44 | disposition home or self-care (01) ==
LOC: LAB 10:43
PROVIDERS: PCP Family Medicine; Visit Provider Student in an Organized Health Care Education/Training Program
DX: E11.9 Type 2 diabetes mellitus without complications (principal)
CPT/HCPCS: 36415; 80048; 83735; 84100; 85027